=== PATIENT | male | born 1965 | race Caucasian/White ===

== ENCOUNTER 2018-09-24 22:32 | Emergency (ER) | payer MEDICAID, SELFPAY ==
[2018-09-24 22:36] VITALS: BP 139/83; PULSE 84; RESP 18; TEMP 36.4; O2SAT 97
--- NOTE | 2018-09-24 22:55 | W.ED.GENAD ---
Discharge Plan Disposition Patient Disposition: HOME Condition: Good Discharge Details Chief Complaint: Chest/Rib Clinical Impression: Chest wall muscle strain Primary Care Provider: Janine Hilliard V ED Provider: Azael Rudd [place] Meds and New Rx's Prescriptions: Continue atorvastatin 40 MG tablet 40 mg PO DAILY RF: 0 potassium citrate 10 MEQ tablet extended release 10 meq PO DAILY RF: 0 tamsulosin [Flomax] 0.4 MG capsule 0.4 mg PO DAILY Qty: 90 RF: 4 lisinopril 10 MG tablet 10 mg PO DAILY RF: 0 hydrochlorothiazide 25 MG tablet 25 mg PO DAILY RF: 0 budesonide-formoterol [Symbicort] 10.2 GM HFA aerosol inhaler 1 puff Inhalation BID RF: 0 cyclobenzaprine 10 MG tablet 10 mg PO DAILY RF: 0 Discharge Instructions Instructions: Muscle Strain (ED) Additional Instructions: Your CT scan does not show any evidence of bleeding or collapsed lung or rib fracture. Pain is likely related to chest wall strain from coughing/sneezing. You should use ice over the next 48 hours to help with pain. You may take the oxycodone you are given here at home anytime after 6 AM. After that begin using Tylenol 1 g every 8 hours as well as ibuprofen 600 mg every 8 hours. Alternate these every 4 hours to help with pain. Follow-up with primary care next week if not doing better. Return to ED for worsening pain, difficulty breathing, fever, other concerns Referrals: Janine Hilliard MD [Primary Care Provider] - Discharge Data Discharge Date/Time-TO BE ENTERED AT DEPARTURE: 09/25/18 00:56 Medical Decision Making Patient here with left lower lateral rib pain after sneezing. Prior history of easily bleeding and bruising in the past with hemothorax after similar event. Lungs are clear and vital signs are good although he appears very uncomfortable. I see no bruising currently. He is fairly tender in the left lower lateral ribs. IV is established and basic labs obtained. Morphine given for pain. CT scan of the chest/abdomen/pelvis obtained. Laboratory studies are unremarkable. CT scan negative for pneumothorax, hemothorax, rib fractures, intra-abdominal traumatic injury. Patient likely has chest wall strain. Have agreed to give him a dose of oxycodone here and one dose to use at home in the morning. Subsequently will use Motrin and Tylenol as well as ice and take it easy over the weekend. Follow-up with primary care next week if needed. Return to ED for fever, increasing pain, shortness of breath, other concerns. Lab Data Lab results reviewed: Yes I reviewed the patient's lab results. HPI General Mode of arrival: ambulatory. Date/Time Provider Initiated Documentation: 09/24/18 22:45. Limitations to Documentation: no limitations. Information obtained by: patient and family. HPI Narrative: Patient presents to ED with complaint of left sided lateral lower rib pain after sneezing. Patient has had a little bit of a cold for the last few days. A couple of days ago, he started having some cough. He had a little bit of left-sided discomfort then. Tonight he sneezed and had immediate pain in the left lower lateral ribs. It is difficult for him to take a deep breath because of pain. It is difficult for him to move. He and his report a similar event a few years ago which he subsequently developed a hemothorax from. He apparently has tendency to bleed/bruise but does not carry a diagnosis of any type of bleeding disorder despite multiple studies. He is very uncomfortable and presents now for evaluation concerned that may be he fractured a rib or caused damage like previous when he sneezed. Related Data Home Medications Medication Instructions Recorded Confirmed budesonide-formoterol [Symbicort] 1 puff INHALATION BID 03/14/13 01/24/16 hydrochlorothiazide 25 mg PO DAILY 03/14/13 09/24/18 lisinopril 10 mg PO DAILY 03/14/13 09/24/18 cyclobenzaprine 10 mg PO DAILY 08/22/14 09/24/18 atorvastatin 40 mg PO DAILY tab-cap 10/19/17 09/24/18 potassium citrate 10 meq PO DAILY 10/19/17 09/24/18 tamsulosin [Flomax] 0.4 mg PO DAILY #90 tab-cap 12/25/17 09/24/18 Previous Rx's Medication Instructions Recorded tamsulosin [Flomax] 0.4 mg PO DAILY #90 tab-cap 12/25/17 Allergies Allergy/AdvReac Type Severity Reaction Status Date / Time hydromorphone Allergy Unknown itching Unverified 09/24/18 22:40 hydrocodone [Hydrocodone] Allergy ITCHY Unverified 09/24/18 22:40 General Stated Complaint: Chest/Rib TRACIE: 3 Review of Systems Constitutional Denies chills, Denies fever(s), Denies headache(s) and Denies weakness Eyes Denies change in vision and Denies eye pain ENT Denies otalgia, Denies headache(s), Denies neck pain, Denies sinus pain and Denies sore throat Cardiovascular Reports chest pain, Denies edema and Denies dyspnea Respiratory Reports cough, Reports pain on inspiration, Reports pain with cough and Denies dyspnea Gastrointestinal Denies abdominal pain, Denies diarrhea, Denies nausea and Denies vomiting Genitourinary Denies hematuria and Denies flank pain Musculoskeletal Denies back pain, Denies neck pain and Denies numbness Integumentary/Breasts Denies rash Neurologic Denies headache(s), Denies numbness and Denies weakness Hematologic/Lymphatic Reports easy bleeding and Reports easy bruising [facility] Medical History Asthma DJD (degenerative joint disease) Hemothorax on right Hypertension Obesity Rib fracture Social History Smoking/Tobacco Use Status: Never Surgical History Repair of inguinal hernia Exam Const General: cooperative and acute distress (pain) moderate Orientation: alert and oriented x3 [facility] Head: normocephalic and atraumatic Neck Neck: normal visual inspection, trachea midline and supple Chest Chest: tenderness rib (left lower lateral ribs) Resp Effort & Inspection: normal respiratory effort Auscultation: clear to auscultation bilaterally Cardio Rate: regular rate Rhythm: regular rhythm Heart Sounds: S1 normal and S2 normal GI Inspection: obesity Palpation: soft, not firm, no guarding and nontender Back/Spine/Pelvis Back: no CVA tenderness Skin General skin exam: no ecchymosis Neuro General: alert, oriented x3, no focal motor deficits and CN's II-XI intact bilaterally Extrem General: normal to inspection and full ROM Course Vital Signs Temperature 97.5 F L 09/24/18 22:36 Pulse 84 09/24/18 22:36 Respiratory Rate 18 09/24/18 22:36 Blood Pressure 139/83 09/24/18 22:36 Pulse Oximetry 97 09/24/18 22:36 Temperature 97.5 F L 09/24/18 22:36 Temperature Source Skin 09/24/18 22:36 Pulse 84 09/24/18 22:36 Respiratory Rate 18 09/24/18 22:36 Respiratory Effort Non-Labored 09/24/18 22:42 Respiratory Depth Normal 09/24/18 22:42 Respiratory Pattern Normal 09/24/18 22:42 Blood Pressure 139/83 09/24/18 22:36 Blood Pressure Position Sitting 09/24/18 22:36 Pulse Oximetry 97 09/24/18 22:36 Oxygen Delivery Method Room Air 09/24/18 22:36 Oxygen Flow Rate 0 09/24/18 22:36 Pain Level 7 09/24/18 22:42
--- NOTE | 2018-09-24 22:56 | DI.CT_ITS ---
SYMPTOM/DIAGNOSIS: LT SIDED CHEST/ABD PAIN AFTER SNEEE CHEST, ABDOMEN AND PELVIC CT: Comparison is made with 04/03/15. CT scan of the chest, abdomen and pelvis was performed following the uneventful administration of intravenous contrast material. ABDOMEN AND PELVIS: There is diffuse decreased attenuation of the liver suggesting hepatic steatosis. No evidence of a hepatic mass is seen. The portal and superior mesenteric veins are patent. The gallbladder is negative. No biliary ductal dilatation is seen. The pancreas, spleen and adrenal glands are unremarkable. The kidneys show normal and symmetric enhancement. No evidence of a solid renal mass or obstruction. The urinary bladder is intact. The reproductive organs are unremarkable. There is diverticulosis of the colon but no evidence of acute diverticulitis. No evidence of bowel obstruction, inflammation or infection. No findings to suggest an acute appendicitis are present. There are two small fat containing supra-umbilical hernias. The bones are intact. IMPRESSION: No evidence of an acute abdomen. Small fat containing supra-umbilical hernias. Colonic diverticulosis but no evidence of acute diverticulitis. CHEST: The thoracic aorta is of normal caliber with mild atherosclerosis. No aneurysmal dilatation is seen. Heart size is within normal limits. No significant pericardial effusion is present. Coronary artery calcifications are seen. No significant mediastinal, hilar or axillary adenopathy is present. No pleural effusion or pneumothorax is identified. The lungs show no focal infiltrates. The tracheobronchial tree is unremarkable. The bones are intact. No acute fracture is identified. IMPRESSION: No acute abnormality.
[2018-09-24 23:15] LABS: Abs Immature Grans 0.02 k/cumm (0.0-0.09); Absolute Basophil Count 0.05 k/cumm (0.0-0.2); Absolute Eosinophil Count 0.17 k/cumm (0.0-0.7); Absolute Lymphocyte Count 2.02 k/cumm (1.2-3.4); Absolute Monocyte Count 1.01 k/cumm (0.11-0.7); Absolute Neutrophil Count 5.85 k/cumm (1.2-6.7); Basophils % 0.5; Eosinophils % 1.9; HCT 42.5 % (40.0-50.0); HGB 14.7 g/dL (13.5-17.5); Immature Grans % 0.2; Lymphocytes % 22.1; Mean Corp. HGB Concentration 34.6 g/dL (32.0-36.0); Mean Corpuscular Hemoglobin 28.8 pg (27.0-33.0); Mean Corpuscular Volume 83.3 fL (80-95); Monocytes % 11.1; Neutrophils % 64.2; Platelet Count 198 x1000/uL (130-400); RBC Distribution Width 14.8 % (11.8-14.1); White Blood Cell Count 9.12 k/cumm (4.4-10.8)
[2018-09-24 23:22] LABS: Anion Gap 9.2 mmol/L (3-11); BUN 31 mg/dL (7-18); CO2 28.8 mmol/L (21.0-32.0); CREATININE 0.87 mg/dL (0.70-1.30); Calcium 9.2 mg/dL (8.5-10.1); Chloride 101 mmol/L (98-107); Glucose 116 mg/dL (70-100); Potassium 3.9 mmol/L (3.5-5.1); Sodium 139 mmol/L (136-145)
[2018-09-24] MEDS: Lactated Ringers 1,000 ML 150 ML IV (23:40)
[2018-09-25] MEDS: Omnipaque 350 MG/ML 100 ML BTL IJ (00:01)
--- NOTE | 2018-09-25 00:20 | DI.VRAD_ITS ---
EXAM: CT Chest With Intravenous Contrast EXAM DATE/TIME: 09/24/2018 11:01 PM CLINICAL HISTORY: 53 years old, male; Pain; Other: L sided chest pain after sneezing; Other: HX hemothorax after similar incident TECHNIQUE: Axial computed tomography images of the chest with intravenous contrast. Coronal and sagittal reformatted images were created and reviewed. COMPARISON: No relevant prior studies available. FINDINGS: Lungs: Normal. No consolidation. No masses. Pleural space: Normal. No pneumothorax. No pleural effusion. Heart: Normal. No cardiomegaly. No pericardial effusion. Aorta: Normal. No aortic aneurysm. Lymph nodes: Unremarkable. No enlarged lymph nodes. Bones/joints: Unremarkable. No acute fracture. Soft tissues: Unremarkable. IMPRESSION: No acute findings. EXAM: CT Abdomen and Pelvis With Intravenous Contrast EXAM DATE/TIME: 09/24/2018 11:01 PM CLINICAL HISTORY: 53 years old, male; Pain; Other: L sided chest pain after sneezing; Other: HX hemothorax after similar incident TECHNIQUE: Axial computed tomography images of the abdomen and pelvis with intravenous contrast. Coronal and sagittal reformatted images were created and reviewed. COMPARISON: No relevant prior studies available. FINDINGS: Lower thorax: No acute findings. ABDOMEN: Liver: Normal. No mass. Gallbladder and bile ducts: Normal. No calcified stones. No ductal dilation. Pancreas: Normal. No ductal dilation. Spleen: Normal. No splenomegaly. Adrenals: Normal. No mass. Kidneys and ureters: Normal. No hydronephrosis. Stomach and bowel: Colonic diverticulosis. Appendix: No evidence of appendicitis. PELVIS: Bladder: Unremarkable as visualized. Reproductive: Unremarkable as visualized. ABDOMEN and PELVIS: Intraperitoneal space: Normal. No free air. No significant fluid collection. Bones/joints: No acute fracture. No dislocation. Soft tissues: Small fat-containing hernia just above the umbilicus. Vasculature: Normal. No abdominal aortic aneurysm. Lymph nodes: Normal. No enlarged lymph nodes. IMPRESSION: 1. Small fat-containing ventral hernia. 2. Colonic diverticulosis. Dictated and Authenticated by: Carlos Gonzalez MD. Ordering:DIANE PRIDE MD
[2018-09-25] MEDS: oxyCODONE 5 MG TAB PO ×2 (00:40→00:41)
[2018-09-25 00:52] VITALS: BP 134/80; PULSE 80; RESP 18; TEMP 36.4; O2SAT 97
== END 2018-09-25 00:56 | disposition home or self-care (01) ==
PROVIDERS: Emergency Provider Emergency Medicine; PCP Family Medicine
DX: S29.011A Strain of muscle and tendon of front wall of thorax, initial encounter (principal); X50.0XXA Overexertion from strenuous movement or load, initial encounter
CPT/HCPCS: 36415; 74177; 80048; 96361; 96374; 99285; 71260; 85025; 99284; J3490

== ENCOUNTER 2019-01-10 18:11 | Outpatient (REF) | payer MEDICAID, SELFPAY ==
[2019-01-12 09:35] LABS: PSA, Screening 0.7 ng/ml (0-3.5)
== END 2019-01-10 18:31 ==
LOC: LBN 18:11
PROVIDERS: PCP Family Medicine; Visit Provider Urology
DX: G89.4 Chronic pain syndrome (principal); N41.1 Chronic prostatitis; Z12.5 Encounter for screening for malignant neoplasm of prostate
CPT/HCPCS: 84153

== ENCOUNTER 2019-01-24 08:17 | Day surgery (SDC) | payer MEDICAID, SELFPAY ==
--- NOTE | 2019-01-23 19:41 | W.PIPPEYE ---
History of Present Illness Chief Complaint: Progressive decreased vision, left eye Narrative: Patient is a 51-year-old male with history of amblyopia of the right eye as well as high myopia with astigmatism. He presented with complaints of progressive decreased vision in his good left eye at both distance and near. On examination he was noted to have bilateral nuclear and cortical cataracts with best corrected vision of 20/70 OD, 20/50 OS. The option of cataract surgery was offered to the patient and he wished to proceed. In addition, he desired implantation of a toric intraocular lens implant to minimize his postoperative astigmatism correction. NOTE: The Chief Complaint, HPI, Past Medical History, Past Surgical History, Family History, Social History, Medications, and complete Ophthalmic Exam with detailed Assessment and Plan have already been documented in the patient's outpatient ophthalmic record and are not covered again in detail here. [facility] Social History Smoking and Tabacco status: Never Meds Home Medications Medication Instructions Recorded Confirmed Type Symbicort 1 puff INHALATION BID PRN 03/14/13 01/18/19 History hydrochlorothiazide 25 mg PO DAILY 03/14/13 01/18/19 History lisinopril 10 mg PO DAILY 03/14/13 01/18/19 History cyclobenzaprine 10 mg PO DAILY PRN 08/22/14 01/18/19 History atorvastatin 40 mg PO DAILY tab-cap 10/19/17 01/18/19 History potassium citrate 10 meq PO DAILY 10/19/17 01/18/19 History tamsulosin 0.4 mg capsule 0.4 mg PO DAILY #90 tab-cap 01/04/19 01/18/19 Rx Allergies Allergy/AdvReac Type Severity Reaction Status Date / Time hydromorphone Allergy Unknown itching Unverified 01/04/19 15:28 hydrocodone [Hydrocodone] Allergy ITCHY Unverified 01/04/19 15:28 Exam OCULAR EXAM:: Most recent ocular examination revealed best corrected vision of 20/70 OD, 20/50 OS. Intraocular pressure is 17 OD, 17 OS. Extraocular motility shows limited abduction in the right eye. Pupils equal, round, and reactive without afferent pupillary defect slit-lamp examination is significant for pupils dilating to 6.5 mm OU. 1+ nuclear with 2+ cortical cataract OU. Funduscopic examination is significant for disc cupping of 0.7 OU with peripapillary atrophy and the appearance of angioid streaks. An epiretinal membrane is present in both maculas. Peripheral retina and vitreous is normal OU. BRIGHTNESS ACUITY TESTING (BAT):: Brightness acuity testing of the left eye off is 20/50. Low is 20/40. Medium is 20/40. High is 20/50. Assessment and Plan (1) Nuclear sclerotic cataract of left eye: Current visit: No Status: Acute Assessment: Visually significant cataract, left eye. Plan: Cataract extraction with intraocular lens implantation, left eye (2) Cortical cataract of left eye: Current visit: No Status: Acute Assessment: Visually significant cataract, left eye. Plan: Cataract extraction with intraocular lens implantation, left eye Note: NOTE:: The details of the planned surgery, including the risks, indications,limitations,expectations,outcome and possible complications were explained to the patient. The patient understands the complications including, but not limited to: infection, hemorrhage, posterior dislocation of the lens or nuclear fragments which may require the intervention of a vitreoretinal surgeon, possible loss of the eye, or from anesthetic complications. The patient has been made aware of the option of not having surgery, that vision following surgery may not be equal to that prior to surgery, and that the planned surgery may not achieve the intended results. Following this discussion, which the patient appeared to understand, the patient wishes to proceed with cataract surgery with lens implantation of the affected eye to improve and maximize vision.
[2019-01-24 08:37] VITALS: BP 144/81; PULSE 78; RESP 18; TEMP 36.9; O2SAT 96
[2019-01-24] MEDS: Tetracaine 0.5% 4 ML BTL OS ×4 (08:45→09:48)
[2019-01-24] MEDS: Tropicam./Phenyleph. (1/2.5%) 5 ML BTL OS ×3 (08:45→08:55)
[2019-01-24] MEDS: Povidone-Iodine Ophth 30 ML BTL ×2 (09:48→10:25)
[2019-01-24] MEDS: Lidocaine 2% Jelly 6 ML SYR (09:48)
[2019-01-24] MEDS: Lidocaine 1% Pres-Free 5 ML VIAL (09:53)
[2019-01-24] MEDS: Balanced Salt Soln.-PLUS 500 ML BAG (09:53)
--- NOTE | 2019-01-24 10:32 | W.PM.DSUDISC ---
Discharge Plan Disposition Patient Disposition: HOME Condition: Stable Discharge Details Attending Provider: Timi Billingsley Primary Care Provider: Jainne Hilliard V Home Meds and New Rx's Prescriptions: No Action tamsulosin [Flomax] 0.4 mg capsule 0.4 mg PO DAILY Qty: 90 RF: 4 atorvastatin 40 MG tablet 40 mg PO DAILY RF: 0 potassium citrate 10 MEQ tablet extended release 10 meq PO DAILY RF: 0 lisinopril 10 MG tablet 10 mg PO DAILY RF: 0 hydrochlorothiazide 25 MG tablet 25 mg PO DAILY RF: 0 Symbicort 10.2 GM HFA aerosol inhaler 1 puff Inhalation BID PRNRF: 0 cyclobenzaprine 10 MG tablet 10 mg PO DAILY PRNRF: 0 Discharge Instructions Stand Alone Forms: Post-op Topical Cataract, Boris Marino (DSU) Discharge Orders Discharge Orders: Discharge Order (Routine); Ordered 01/24/19 Ordered By: Timi Billingsley DS: Diagnosis Discharge Diagnosis (1) Status post cataract extraction and insertion of intraocular lens of left eye: Status: Chronic
--- NOTE | 2019-01-24 10:33 | W.PM.OP ---
Date of service: 01/24/19 Time of Service: 10:33 Operative Note PRE-OP DIAGNOSIS: Cataract, left eye, with corneal astigmatism POST-OP DIAGNOSIS: same SURGEON: Timi Billingsley ANESTHESIA: MAC (with local sub-tenon's anesthetic injection) PATHOLOGY: none sent COMPLICATIONS: None Patient was transported to: same day Patient's condition: stable Implants: [employer] / MINNIE Tecnis ZCT Toric Intraocular Lens Indications: Progressive decreased vision due to cataract, left eye, with corneal astigmatism Procedure Description: CATARACT SURGERY OPERATIVE REPORT PREOPERATIVE DIAGNOSIS: Nuclear/cortical cataract, left eye High myopia with astigmatism POSTOPERATIVE DIAGNOSIS: Same OPERATION: Cataract extraction using phacoemulsification with posterior chamber toric intraocular lens implant, left eye. IOL: IOL Trace Evidence Technician/Model: [employer] Vision / MINNIE Tecnis ZCT 300 IOL Power: + 9.0 diopters sphere, 3.00 cylinder IOL Serial Number: [id number] Optic Diameter: 6.0mm Haptic/Overall Diameter: 13.00mm PHACO INFO: DamiánHyprKeyuriemoquo Vision System with OZil and Active Fluidics Cumulative Dispersed Energy (CDE): 9.34 seconds SURGEON: Timi Billingsley MD, GERALDINE ANESTHESIA: Monitored Anesthesia Care (MAC), with local sub-tenon's anesthetic infiltration COMPLICATIONS: None SPECIMENS: None INDICATIONS FOR PROCEDURE: The patient is a 53-year-old gentleman with history of high myopia with amblyopia of the right eye. He has developed a significant nuclear and cortical cataract of the left eye. He also has moderate amount of astigmatism and desires a toric intraocular lens implant at the time of cataract surgery. PROCEDURE: The correct surgical eye was identified and marked as the left eye and the pupil was dilated in the preoperative area using mydriatics and cycloplegics. The dilated pupil size was 8.0 mm. With the patient in the seated position, topical anesthetic was applied and a surgical marker was used to elvin the limbus at 6:00. A Surgilum Robomarker was then used to elvin the 0/180 degree reference axis. Oral sedation was administered in the form of an Imprimis MKO Melt (midazolam 3mg/ketamine 25mg/ondansetron 2mg). The patient was brought to the operating room where cardiopulmonary monitoring was instituted and surgical time-out was performed, confirming the correct operative eye and IOL power. Topical anesthesia was administered and ophthalmic povidone-iodine 5% was instilled into the conjunctival fornices. Lidocaine gel was applied to the cornea and the naa-ocular area was prepped with Betadine 10% solution and draped in the usual sterile fashion for intraocular surgery, including an aperture drape. A Tegaderm transparent film dressing was cut in half and used to cover the lashes and lid margins. Care was taken to sequester the lashes and lid margins under the Tegaderm dressing. A lid speculum was placed between the lids of the operative eye and the Dharmesh-Maddie operating microscope was maneuvered into position. Guillaume scissors were then used to make a conjunctival buttonhole approximately 6mm posterior to the limbus in the inferonasal quadrant. Blunt dissection was carried out to expose bare sclera, and a blunt-tipped sub-tenon?s anesthesia cannula was introduced and passed posteriorly along the globe where non-preserved plain lidocaine was injected into posterior sub-Tenon?s space. A corneal ring gauge and axis marker were then used to elvin the 0 degree position for the main phaco incision, and the 70/250 degree axis for alignment of the toric IOL. A sideport knife was used to make a paracentesis port superior/superiortemporally, and the anterior chamber was filled with Healon GV. Maria Elena scissors were used to make a conjunctival peritomy temporally and hemostasis was obtained using bipolar cautery forceps. A 2.4mm keratome knife was used to create a half-thickness scleral groove 1-1.5 mm posterior to the limbus, and then to create a scleral corneal tunnel extending 1.0 mm into clear cornea at the 0 degree axis. A flap was raised on the anterior capsule and capsulorhexis forceps were used to complete a continuous curvilinear capsulorhexis of 5.0 mm. The anterior chamber was moderately deep. Balanced salt solution was then used to perform cortical cleaving hydrodissection and nuclear hydrodelineation until the lens could be freely rotated within the capsular bag. The lens nucleus was then disassembled and removed within the capsular bag and iris plane using phacoemulsification. Residual cortical material was removed using the 45-degree angled silicone I/A tip with 0.3mm port. The posterior capsule was carefully polished to remove as much residual lens epithelial cells as safely possible. The capsular bag was then inflated and the anterior chamber deepened with viscoelastic. The lens implant described above was inserted into the capsular bag using the MINNIE [place] Injector. A Kuglen hook was used to dial the IOL into position, about 10 degrees counterclockwise of its final alignment. Residual viscoelastic was then removed first from posterior to the IOL, then from the anterior chamber using the I/A handpiece. The I/A handpiece was then used to dial the IOL to the target axis. The lens implant was noted to center nicely within the capsular bag, with the toric IOL martinez aligned at the 70/250 degree axis. The incisions were stromally hydrated, and the anterior chamber was reformed using BSS. Then 0.4cc of moxifloxacin 1.5mg/ml were injected into the capsular bag and anterior chamber. The incisions were checked with a Weck spear and found to be secure. Several drops of ophthalmic povidone-iodine 5% were then applied to the eye followed by two drops of Imprimis combination moxifloxacin/dexamethasone solution. The drapes were removed and a clear plastic protective eye shield was placed over the eye. The patient was then returned to Same Day Surgery in stable condition.
--- NOTE | 2019-01-24 10:37 | ROE_ITS ---
Date of service: 01/24/19 Time of Service: 10:33 Operative Note PRE-OP DIAGNOSIS: Cataract, left eye, with corneal astigmatism POST-OP DIAGNOSIS: same SURGEON: Timi Billingsley ANESTHESIA: MAC (with local sub-tenon's anesthetic injection) PATHOLOGY: none sent COMPLICATIONS: None Patient was transported to: same day Patient's condition: stable Implants: Jeremy [employer] Jeremy Vision / MINNIE Tecnis ZCT Toric Intraocular Lens Indications: Progressive decreased vision due to cataract, left eye, with corneal astigmatism Procedure Description: CATARACT SURGERY OPERATIVE REPORT PREOPERATIVE DIAGNOSIS: Nuclear/cortical cataract, left eye High myopia with astigmatism POSTOPERATIVE DIAGNOSIS: Same OPERATION: Cataract extraction using phacoemulsification with posterior chamber toric intraocular lens implant, left eye. IOL: IOL Director Of Staff Development/Model: J&J Vision / MINNIE Tecnis ZCT 300 IOL Power: + 9.0 diopters sphere, 3.00 cylinder IOL Serial Number: [id number] Optic Diameter: 6.0mm Haptic/Overall Diameter: 13.00mm PHACO INFO: DamiánTrunk[employer] Vision System with OZil and Active Fluidics Cumulative Dispersed Energy (CDE): 9.34 seconds SURGEON: Timi Billingsley MD, GERALDINE ANESTHESIA: Monitored Anesthesia Care (MAC), with local sub-tenon's anesthetic infiltration COMPLICATIONS: None SPECIMENS: None INDICATIONS FOR PROCEDURE: The patient is a 53-year-old gentleman with history of high myopia with amblyopia of the right eye. He has developed a significant nuclear and cortical cataract of the left eye. He also has moderate amount of astigmatism and desires a toric intraocular lens implant at the time of cataract surgery. PROCEDURE: The correct surgical eye was identified and marked as the left eye and the pupil was dilated in the preoperative area using mydriatics and cycloplegics. The dilated pupil size was 8.0 mm. With the patient in the seated position, topical anesthetic was applied and a surgical marker was used to elvin the limbus at 6:00. A Surgilum Robomarker was then used to elvin the 0/180 degree reference axis. Oral sedation was administered in the form of an Imprimis MKO Melt (midazolam 3mg/ketamine 25mg/ondansetron 2mg). The patient was brought to the operating room where cardiopulmonary monitoring was instituted and surgical time-out was performed, confirming the correct operative eye and IOL power. Topical anesthesia was administered and ophthalmic povidone-iodine 5% was instilled into the conjunctival fornices. Lidocaine gel was applied to the cornea and the naa-ocular area was prepped with Betadine 10% solution and draped in the usual sterile fashion for intraocular surgery, including an aperture drape. A Tegaderm transparent film dressing was cut in half and used to cover the lashes and lid margins. Care was taken to sequester the lashes and lid margins under the Tegaderm dressing. A lid speculum was placed between the lids of the operative eye and the Dharmesh-Maddie operating microscope was maneuvered into position. Guillaume scissors were then used to make a conjunctival buttonhole approximately 6mm posterior to the limbus in the inferonasal quadrant. Blunt dissection was carried out to expose bare sclera, and a blunt-tipped sub-tenon?s anesthesia cannula was introduced and passed posteriorly along the globe where non- preserved plain lidocaine was injected into posterior sub-Tenon?s space. A corneal ring gauge and axis marker were then used to elvin the 0 degree position for the main phaco incision, and the 70/250 degree axis for alignment of the toric IOL. A sideport knife was used to make a paracentesis port superior/superiortemporally, and the anterior chamber was filled with Healon GV. Maria Elena scissors were used to make a conjunctival peritomy temporally and hemostasis was obtained using bipolar cautery forceps. A 2.4mm keratome knife was used to create a half-thickness scleral groove 1-1.5 mm posterior to the limbus, and then to create a scleral corneal tunnel extending 1.0 mm into clear cornea at the 0 degree axis. A flap was raised on the anterior capsule and capsulorhexis forceps were used to complete a continuous curvilinear capsulorhexis of 5.0 mm. The anterior chamber was moderately deep. Balanced salt solution was then used to perform cortical cleaving hydrodissection and nuclear hydrodelineation until the lens could be freely rotated within the capsular bag. The lens nucleus was then disassembled and removed within the capsular bag and iris plane using phacoemulsification. Residual cortical material was removed using the 45-degree angled silicone I/A tip with 0.3mm port. The posterior capsule was carefully polished to remove as much residual lens epithelial cells as safely possible. The capsular bag was then inflated and the anterior chamber deepened with viscoelastic. The lens implant described above was inserted into the capsular bag using the MINNIE [place] Injector. A Kuglen hook was used to dial the IOL into position, about 10 degrees counterclockwise of its final alignment. Residual viscoelastic was then removed first from posterior to the IOL, then from the anterior chamber using the I/A handpiece. The I/A handpiece was then used to dial the IOL to the target axis. The lens implant was noted to center nicely within the capsular bag, with the toric IOL martinez aligned at the 70/250 degree axis. The incisions were stromally hydrated, and the anterior chamber was reformed using BSS. Then 0.4cc of moxifloxacin 1.5mg/ml were injected into the capsular bag and anterior chamber. The incisions were checked with a Weck spear and found to be secure. Several drops of ophthalmic povidone-iodine 5% were then applied to the eye followed by two drops of Imprimis combination moxifloxacin/dexamethasone solution. The drapes were removed and a clear plastic protective eye shield was placed over the eye. The patient was then returned to Same Day Surgery in stable condition.
[2019-01-24 10:50] VITALS: BP 127/80; PULSE 81; RESP 16; TEMP 36.1; O2SAT 95
== END 2019-01-24 11:00 | disposition home or self-care (01) ==
PROVIDERS: PCP Family Medicine; Visit Provider Ophthalmology
PROC: (CPT 66984; principal; 2019-01-24 11:15)
DX: H25.812 Combined forms of age-related cataract, left eye (principal); H52.202 Unspecified astigmatism, left eye; G47.33 Obstructive sleep apnea (adult) (pediatric); I10 Essential (primary) hypertension
CPT/HCPCS: 66984; V2632

== ENCOUNTER 2019-02-07 07:44 | Day surgery (SDC) | payer MEDICAID, SELFPAY ==
--- NOTE | 2019-02-06 16:37 | POEE_ITS ---
History of Present Illness Chief Complaint: Progressive decreased vision, right eye Narrative: The patient is a 53-year-old gentleman with history of high myopia with amblyopia of the right eye as well as epiretinal membrane with some foveal distortion in the right eye. He developed symptomatic bilateral nuclear and cortical cataracts, such that he desired cataract surgery and attempt to improve and maximize his vision. He has a moderate amount of astigmatism, and underwent cataract surgery with a toric intraocular lens implant in the left eye on 01/24/2019. Postoperatively he has regained uncorrected visual acuity of 20/25 in the left eye. He now presents for cataract surgery in the right eye. He under stands that postoperative visual acuity will be limited by the presence of his pre-existing amblyopia and maculopathy. NOTE: The Chief Complaint, HPI, Past Medical History, Past Surgical History, Fa edmond History, Social History, Medications, and complete Ophthalmic Exam with detailed Assessment and Plan have already been documented in the patient's outpatient ophthalmic record and are not covered again in detail here. PFSH Medical History Epiretinal membrane (ERM) of right eye (Chronic) Nuclear sclerotic cataract of right eye (Acute) Cortical cataract of right eye (Acute) Nuclear sclerotic cataract of left eye (Acute) Cortical cataract of left eye (Resolved) Asthma DJD (degenerative joint disease) Hemothorax on right Hypertension Obesity Rib fracture Surgical History Status post cataract extraction and insertion of intraocular lens of left eye (Chronic 01/24/19) Repair of inguinal hernia Social History Smoking/Tobacco Use Status: Never Drug use: Never Do you feel safe in your relationship?: Yes Meds Home Medications Medication Instructions Recorded Confirmed Type Symbicort 1 puff INHALATION BID PRN 03/14/13 01/24/19 History hydrochlorothiazide 25 mg PO DAILY 03/14/13 01/24/19 History lisinopril 10 mg PO DAILY 03/14/13 01/24/19 History cyclobenzaprine 10 mg PO DAILY PRN 08/22/14 01/24/19 History atorvastatin 40 mg PO DAILY tab-cap 10/19/17 01/24/19 History potassium citrate 10 meq PO DAILY 10/19/17 01/24/19 History tamsulosin 0.4 mg capsule 0.4 mg PO DAILY #90 tab-cap 01/04/19 01/24/19 Rx Allergies Allergy/AdvReac Type Severity Reaction Status Date / Time hydromorphone Allergy Unknown itching Unverified 01/24/19 08:34 hydrocodone [Hydrocodone] Allergy ITCHY Unverified 01/24/19 08:34 Exam OCULAR EXAM:: Most recent ocular examination reveals corrected visual acuity of 20/60 OD, 20/25 OS. Pupils equal, round, and reactive without afferent pupillary defect extraocular motility is significant for a right esotropia. Intraocular pressure is 17 OU. Slit-lamp examination reveals pupils dilating to 6.5 mm OU. 1+ nuclear with 2+ cortical cataract OD. Well-positioned PCIOL OS with clear posterior capsule. Dilated funduscopic examination shows disc cupping of 0.7 OU with naa-papillary atrophy. An epiretinal membrane is present in both maculas. Peripheral retina and vitreous is normal OU. BRIGHTNESS ACUITY TESTING (BAT):: Brightness acuity testing of the right eye off is 20/70. Low is 20/60. Medium is 20/60. High is 20/60. Assessment and Plan (1) Cortical cataract of right eye: Current visit: No Status: Acute Assessment: Visually significant cataract, right eye. Plan: Cataract extraction with intraocular lens implantation, right eye (2) Nuclear sclerotic cataract of right eye: Current visit: No Status: Acute Assessment: Visually significant cataract, right eye. Plan: Cataract extraction with intraocular lens implantation, right eye Note: NOTE:: The details of the planned surgery, including the risks, indications,limitations,expectations,outcome and possible complications were explained to the patient. The patient understands the complications including, but not limited to: infection, hemorrhage, posterior dislocation of the lens or nuclear fragments which may require the intervention of a vitreoretinal surgeon, possible loss of the eye, or from anesthetic complications. The patient has been made aware of the option of not having surgery, that vision following surgery may not be equal to that prior to surgery, and that the planned surgery may not achieve the intended results. Following this discussion, which the patient appeared to understand, the patient wishes to proceed with cataract surgery with lens implantation of the affected eye to improve and maximize vision.
--- NOTE | 2019-02-06 19:18 | W.PM.DSUDISC ---
Discharge Plan Disposition Patient Disposition: HOME Condition: Stable Discharge Details Attending Provider: Timi Billingsley Primary Care Provider: Janine Hilliard V Home Meds and New Rx's Prescriptions: No Action tamsulosin [Flomax] 0.4 mg capsule 0.4 mg PO DAILY Qty: 90 RF: 4 atorvastatin 40 MG tablet 40 mg PO DAILY RF: 0 potassium citrate 10 MEQ tablet extended release 10 meq PO DAILY RF: 0 lisinopril 10 MG tablet 10 mg PO DAILY RF: 0 hydrochlorothiazide 25 MG tablet 25 mg PO DAILY RF: 0 Symbicort 10.2 GM HFA aerosol inhaler 1 puff Inhalation BID PRNRF: 0 cyclobenzaprine 10 MG tablet 10 mg PO DAILY PRNRF: 0 Discharge Instructions Stand Alone Forms: Post-op Topical Cataract, Boris Marino (DSU) Discharge Orders Discharge Orders: Discharge Order (Routine); Ordered 02/07/19 Ordered By: Timi Billingsley DS: Diagnosis Discharge Diagnosis (1) Cortical cataract of right eye: Status: Resolved (2) Nuclear sclerotic cataract of right eye: Status: Resolved (3) Status post cataract extraction and insertion of intraocular lens of right eye: Status: Chronic
[2019-02-07 07:54] VITALS: BP 149/90; PULSE 77; RESP 16; TEMP 35.9; O2SAT 96
[2019-02-07] MEDS: Tetracaine 0.5% 4 ML BTL OD ×4 (08:06→09:04)
[2019-02-07] MEDS: Tropicam./Phenyleph. (1/2.5%) 5 ML BTL OD ×3 (08:07→08:17)
[2019-02-07] MEDS: Povidone-Iodine Ophth 30 ML BTL (09:04)
[2019-02-07] MEDS: Lidocaine 2% Jelly 6 ML SYR (09:06)
[2019-02-07] MEDS: Lidocaine 1% Pres-Free 5 ML VIAL (09:12)
[2019-02-07] MEDS: Balanced Salt Soln.-PLUS 500 ML BAG (09:12)
--- NOTE | 2019-02-07 10:25 | W.PM.OP ---
Date of service: 02/07/19 Time of Service: 10:25 Operative Note PRE-OP DIAGNOSIS: Cataract, right eye, with corneal astigmatism POST-OP DIAGNOSIS: same PROCEDURE: Cataract extraction using phacoemulsification with toric intraocular lens implant, right eye SURGEON: Timi Billingsley ANESTHESIA: MAC (with local sub-tenon's anesthetic injection) PATHOLOGY: none sent COMPLICATIONS: None Patient was transported to: same day Patient's condition: stable Implants: Jeremy [employer] Jeremy Vision / MINNIE Tecnis ZCT Toric Intraocular Lens Indications: Progressive decreased vision due to cataract, right eye, with corneal astigmatism Procedure Description: [] CATARACT SURGERY OPERATIVE REPORT PREOPERATIVE DIAGNOSIS: Nuclear/cortical cataract, right eye High myopia with astigmatism Right esotropia with amblyopia POSTOPERATIVE DIAGNOSIS: Same OPERATION: Cataract extraction using phacoemulsification with posterior chamber toric intraocular lens implant, right eye. IOL: IOL Blind Eyeletter/Model: J&J Vision / MINNIE Tecnis [id number] IOL Power: + 8.0 diopters sphere, 3.0 cylinder IOL Serial Number: [id number] Optic Diameter: 6.0mm Haptic/Overall Diameter: 13.00mm PHACO INFO: Damián [employer] Vision System with OZil and Active Fluidics Cumulative Dispersed Energy (CDE): 4.78 seconds SURGEON: Timi Billingsley MD, GERALDINE ANESTHESIA: Monitored Anesthesia Care (MAC), with local sub-tenon's anesthetic infiltration COMPLICATIONS: None SPECIMENS: None INDICATIONS FOR PROCEDURE: The patient is a 53-year old male with history of high myopia and astigmatism with right esotropia and amblyopia. He has developed symptomatic bilateral cataracts. He has already undergone cataract surgery in the left eye with a toric intraocular lens implant. He is doing well postoperatively in his left eye. He now presents for cataract surgery in the right eye. PROCEDURE: The correct surgical eye was identified and marked as the right eye and the pupil was dilated in the preoperative area using mydriatics and cycloplegics. The dilated pupil size was 7.0 mm. With the patient in the seated position, topical anesthetic was applied and a surgical marker was used to elvin the limbus at 6:00. A Surgilum Robomarker was then used to elvin the 0/180 degree reference axis. Oral sedation was administered in the form of an Imprimis MKO Melt (midazolam 3mg/ketamine 25mg/ondansetron 2mg). The patient was brought to the operating room where cardiopulmonary monitoring was instituted and surgical time-out was performed, confirming the correct operative eye and IOL power. Topical anesthesia was administered and ophthalmic povidone-iodine 5% was instilled into the conjunctival fornices. Lidocaine gel was applied to the cornea and the naa-ocular area was prepped with Betadine 10% solution and draped in the usual sterile fashion for intraocular surgery, including an aperture drape. A Tegaderm transparent film dressing was cut in half and used to cover the lashes and lid margins. Care was taken to sequester the lashes and lid margins under the Tegaderm dressing. A lid speculum was placed between the lids of the operative eye and the Dharmesh-Maddie operating microscope was maneuvered into position. Guillaume scissors were then used to make a conjunctival buttonhole approximately 6mm posterior to the limbus in the inferonasal quadrant. Blunt dissection was carried out to expose bare sclera, and a blunt-tipped sub-tenon?s anesthesia cannula was introduced and passed posteriorly along the globe where non-preserved plain lidocaine was injected into posterior sub-Tenon?s space. The patient had a severe Alfredo's phenomenon, making visualization and manipulation extremely challenging. A corneal ring gauge and axis marker were then used to elvin the 140 degree position for the main phaco incision.and the 116/296 degree axis for alignment of the toric IOL. A sideport knife was used to make a paracentesis port at the 7:00 postion and the anterior chamber was filled with Healon GV. A 2.4mm keratome knife was used to create a half-thickness groove at the limbus and then to construct a three-plane near-clear corneal tunnel extending 2.0mm into clear cornea at the 104 degree axis. . A flap was raised on the anterior capsule and capsulorhexis forceps were used to complete a continuous curvilinear capsulorhexis of 4.8 mm. The capsule was noted to be quite thin with moderately loose zonules. Balanced salt solution was then used to perform cortical cleaving hydrodissection and nuclear hydrodelineation until the lens could be freely rotated within the capsular bag. The lens nucleus was then disassembled and removed within the capsular bag and iris plane using phacoemulsification. THe anterior chamber was unstable. The iris was noted to be quite floppy, with pupil constricting to 4 mm during phacoemulsification. Visualization was challenging due to the small pupil and Alfredo's phenomenon. Residual cortical material was removed using the 45-degree angled silicone I/A tip with 0.3mm port. The cortex was very adherent, and viscodissection was used intermittently to free residual cortex. There was some residual cortical material in the subincisional area which could not be safely removed. The posterior capsule was carefully polished to remove as much residual lens epithelial cells as safely possible. The capsular bag was then inflated and the anterior chamber deepened with viscoelastic. The lens implant described above was inserted into the capsular bag using the [employer] [place] Injector. A Kuglen hook was used to dial the IOL into position, about 10 degrees counterclockwise of its final alignment. Residual viscoelastic was then removed first from posterior to the IOL, then from the anterior chamber using the I/A handpiece. The I/A handpiece was then used to dial the IOL to the target axis. The lens implant was noted to center nicely within the capsular bag, with the toric IOL martinez aligned at the 116/296 degree axis. The incisions were stromally hydrated, and the anterior chamber was reformed using BSS. Then 0.4cc of moxifloxacin 1.5mg/ml were injected into the capsular bag and anterior chamber. The incisions were checked with a Weck spear and found to be secure. Several drops of ophthalmic povidone-iodine 5% were then applied to the eye followed by two drops of Imprimis combination moxifloxacin/dexamethasone solution. The drapes were removed and a clear plastic protective eye shield was placed over the eye. The patient was then returned to Same Day Surgery in stable condition.
[2019-02-07 10:48] VITALS: BP 134/79; PULSE 70; RESP 16; TEMP 36.2; O2SAT 95
== END 2019-02-07 10:45 | disposition home or self-care (01) ==
LOC: SUR 07:44
PROVIDERS: PCP Family Medicine; Visit Provider Ophthalmology
PROC: (CPT 66984; principal; 2019-02-07 10:00)
DX: H25.811 Combined forms of age-related cataract, right eye (principal); H52.202 Unspecified astigmatism, left eye; Z98.42 Cataract extraction status, left eye; Z96.1 Presence of intraocular lens; G47.33 Obstructive sleep apnea (adult) (pediatric); I10 Essential (primary) hypertension
CPT/HCPCS: 66984; V2632

== ENCOUNTER 2019-04-23 10:02 | Emergency (ER) | payer MEDICAID, SELFPAY ==
[2019-04-23] VITALS (44 sets, daily range): BP systolic 118–143; BP diastolic 60–85; PULSE 75–91; RESP 11–38; TEMP 36.8–36.9; O2SAT 92–97
--- NOTE | 2019-04-23 10:03 | DI.COMBO_ITS ---
SYMPTOM/DIAGNOSIS: CHEST PAIN PA AND LATERAL CHEST: The heart is not enlarged. The lungs appear clear. No pleural effusion is seen. CONCLUSION: No evidence of acute disease. PE CHEST CT: CT angiography was performed with multi slice acquisition and multi planar and 3D reconstruction. CT angiography of the chest was performed with a bolus infusion of 100 cc's of Omnipaque 350. Images obtained through the upper abdomen show unremarkable appearance of visualized portions of liver, spleen, pancreas and bile ducts. There is an apparent hiatal hernia. The lungs appear hypoinflated with question of scattered ground glass densities versus poor inflation. No pleural effusion is seen. No mediastinal or hilar adenopathy. Tracheobronchial tree appears intact. No evidence of pulmonary embolic disease. CONCLUSION: No evidence of pulmonary embolic disease. Question patchy ground glass radiodensities in the lungs versus hypoinflation. Appropriate clinical follow up recommended.
[2019-04-23 10:21] LABS: Abs Immature Grans 0.02 k/cumm (0.0-0.09); Absolute Basophil Count 0.03 k/cumm (0.0-0.2); Absolute Eosinophil Count 0.19 k/cumm (0.0-0.7); Absolute Lymphocyte Count 1.46 k/cumm (1.2-3.4); Absolute Monocyte Count 0.69 k/cumm (0.11-0.7); Absolute Neutrophil Count 5.17 k/cumm (1.2-6.7); Basophils % 0.4; Eosinophils % 2.5; HCT 44.9 % (40.0-50.0); HGB 15.4 g/dL (13.5-17.5); Immature Grans % 0.3; Lymphocytes % 19.3; Mean Corp. HGB Concentration 34.3 g/dL (32.0-36.0); Mean Corpuscular Hemoglobin 28.7 pg (27.0-33.0); Mean Corpuscular Volume 83.6 fL (80-95); Mean Platelet Volume 10.7 fL (8.0-11.0); Monocytes % 9.1; Neutrophils % 68.4; Platelet Count 184 x1000/uL (130-400); RBC 5.37 m/cumm (4.50-6.00); RBC Distribution Width 14.7 % (11.8-14.1); White Blood Cell Count 7.56 k/cumm (4.4-10.8)
[2019-04-23 10:34] LABS: ALT 77 U/L (12-78); AST 30 U/L (15-37); Albumin 4.4 g/dL (3.4-5.0); Alkaline Phosphatase 78 U/L (46-116); BUN 21 mg/dL (7-18); Bilirubin, Total 0.4 mg/dL (0.2-1.0); CREATININE 0.75 mg/dL (0.70-1.30); Calcium 9.4 mg/dL (8.5-10.1); Chloride 102 mmol/L (98-107); Glucose 121 mg/dL (70-100); Potassium 3.9 mmol/L (3.5-5.1); Sodium 140 mmol/L (136-145); Total Protein 8.2 g/dL (6.4-8.2)
[2019-04-23 10:43] LABS: NT-proBNP 7 pg/mL
[2019-04-23 10:51] LABS: D-Dimer 554 ng/mlFEU (<500)
[2019-04-23 10:53] LABS: Troponin I < 0.02 ng/mL (0.00-0.06)
[2019-04-23] MEDS: Aspirin 81 MG CHEW 324 MG CH (11:23)
[2019-04-23] MEDS: Omnipaque 350 MG/ML 100 ML BTL IJ (11:37)
[2019-04-23] MEDS: Normal Saline Flush 10 ML SYR IVP (11:37)
--- NOTE | 2019-04-23 11:38 | DI.VRAD_ITS ---
EXAM: XR Chest, 2 Views EXAM DATE/TIME: 04/23/2019 10:40 AM CLINICAL HISTORY: 54 years old, male; Signs and symptoms; Other: Chest pain TECHNIQUE: Imaging protocol: XR of the chest, 2 views. COMPARISON: CR RIGHT RIBS PA CXR-3 VIEWS 11/10/2015 5:37 PM FINDINGS: Lungs: Unremarkable. No consolidation. Pleural space: Unremarkable. No pleural effusion. No pneumothorax. Heart/Mediastinum: Unremarkable. No cardiomegaly. Bones/joints: Unremarkable. IMPRESSION: No acute findings. Dictated and Authenticated by: Marie Luna MD. Ordering:ERIC Schwab MD
--- NOTE | 2019-04-23 11:58 | DI.VRAD_ITS ---
EXAM: CT Angiography Chest With Contrast EXAM DATE/TIME: 04/23/2019 11:20 AM CLINICAL HISTORY: 54 years old, male; Signs and symptoms; Other: Chest pain TECHNIQUE: Imaging protocol: Axial computed tomographic angiography images of the chest with intravenous contrast using CT angiography protocol. Coronal and sagittal reformatted images were created and reviewed. 3D rendering: MIP reconstructed images were created and reviewed. Radiation optimization: All CT scans at this facility use at least one of these dose optimization techniques: automated exposure control; mA and/or kV adjustment per patient size (includes targeted exams where dose is matched to clinical indication); or iterative reconstruction. Contrast material: OMNIPAQUE 350; Contrast volume: 100 ml; Contrast route: IV; COMPARISON: CR XR CHEST 2V PA LATERAL 04/23/2019 10:38 AM FINDINGS: Pulmonary arteries: Negative for acute pulmonary embolism. Aorta: Normal. No aortic aneurysm. No aortic dissection. Lungs: Patchy groundglass densities bilaterally, nonspecific finding. Differential includes infectious process, chronic interstitial disease, and acute alveolar disease. Clinical correlation necessary. Pleural space: Normal. No pneumothorax. No pleural effusion. Heart: Normal. No cardiomegaly. No pericardial effusion. Lymph nodes: Unremarkable. No enlarged lymph nodes. Bones/joints: Unremarkable. No acute fracture. Soft tissues: Unremarkable. IMPRESSION: 1. Negative for acute pulmonary embolism. 2. Patchy groundglass densities bilaterally, nonspecific finding. Differential includes infectious process, chronic interstitial disease, and acute alveolar disease. Clinical correlation necessary. Dictated and Authenticated by: Marie Luna MD. Ordering:ERIC Schwab MD
[2019-04-23 13:33] LABS: Troponin I < 0.02 ng/mL (0.00-0.06)
--- NOTE | 2019-04-23 13:58 | ED.GENADUL_ITS ---
Discharge Plan Disposition Patient Disposition: HOME Condition: Improving Discharge Details Chief Complaint: Chest Pain Clinical Impression: Chest pain Primary Care Provider: Janine Hilliard V ED Provider: Zaheer Osullivan Home Meds and New Rx's Prescriptions: Continued tamsulosin [Flomax] 0.4 mg capsule 0.4 mg PO DAILY Qty: 90 RF: 4 atorvastatin 40 MG tablet 40 mg PO DAILY RF: 0 potassium citrate 10 MEQ tablet extended release 10 meq PO DAILY RF: 0 lisinopril 10 MG tablet 10 mg PO DAILY RF: 0 hydrochlorothiazide 25 MG tablet 25 mg PO DAILY RF: 0 Symbicort 10.2 GM HFA aerosol inhaler 1 puff Inhalation BID PRNRF: 0 cyclobenzaprine 10 MG tablet 10 mg PO DAILY PRNRF: 0 Discharge Instructions Instructions: Chest Pain (ED) Additional Instructions: Return to the emergency department immediately for any new or significant worsening of symptoms, return of significant persistent tachycardia, or any other concerns. Otherwise follow respiratory therapies recommendation on Holter monitor return and follow-up with your primary care provider next week for reassessment and any further testing as needed. Referrals: Janine Hilliard MD [Primary Care Provider] - 1 week (for reassessment) Discharge Data Discharge Date/Time-TO BE ENTERED AT DEPARTURE: 04/23/19 14:15 Medical Decision Making Patient presenting the emergency department for chief complaint of chest pain and some shortness of breath. Patient states that this started around 8 AM and he was pushing a bread cart on rollers when this occurred. Patient looked at his Fitbit and noticed heart rate in the 140s to 150s lasted approximately 15 minutes. He states that that is resolved but he is continued to have chest pressure and some mild shortness of breath. Patient denies any lightheadedness or syncope, leg or calf pain, nausea vomiting, or other irregular heartbeats. Patient denies any previous episodes similar to this. Plan to check labs and EKG. Review of labs show a nondiagnostic CBC, CMP shows mildly elevated BUN and glucose otherwise no other acute findings noted, d-dimer slightly elevated at 554, negative initial troponin. Did discuss with patient CTA imaging of the chest due to elevated d-dimer, chest pain, shortness of breath. Patient was in agreement with this. Initial chest x-ray showed no acute finding Radiologist interpreted of CTA stated no acute pulmonary embolism, patchy groundglass densities bilateral with nonspecific findings. I feel this may be more indicative of patient's chronic asthma which he states he has had for a long time. Doubt infectious nature given patient is afebrile, no leukocytosis, no complaint of cough. Second troponin was drawn and also shows less than 0.02. Patient reassessed and states that he is completely asymptomatic and feels 100% better. Given episode of tachycardia I do feel Holter monitor may be beneficial at being able to diagnosis event that patient seen on his wrist monitor that correlated with his symptoms. Patient was agreeable to this. Given that patient is asymptomatic with negative troponin second EKG was performed and shows a rate of 85, sinus rhythm, again no ischemic ST changes noted and no significant change from initial EKG. Patient's heart score shows low risk of cardiac event and mainly scores points for risk factors of hypertension, hyperlipidemia, and obesity along with his age. Patient was placed upon care management list to arrange follow-up appoint with his primary care provider preferably early this next week for discussion of any further testing such as echo or stress test as needed. Close return precautions were discussed. After discussion of diagnosis and plan of care patient has no further needs, questions, or concerns and states clear understanding to return to the emergency department for any worsening symptoms. ECG Data Attestation: I personally reviewed and interpreted this ECG (s) as follows: Interpretation: EKG reviewed with Dr. Ting Thompson and shows rate of 78, sinus rhythm, no ST ischemic changes noted, otherwise nondiagnostic EKG HPI General Mode of arrival: ambulatory . Date/Time Provider Initiated Documentation: 04/23/19 10:02 . Limitations to Documentation: no limitations . Information obtained by: patient and RN notes reviewed . History of Present Illness 54 year old M presents to the emergency department with the chief complaint of Chest pain, rapid heart, described as moderate, with intensity rated at 5. Quality is described as aching, and is localized to the chest. Patient started experiencing this hour(s) (2) No relieving factors improve symptom(s), No exacerbating factors reported . Patient did receive the following treatments prior to arrival, none Related Data Home Medications Medication Instructions Recorded Confirmed Symbicort 1 puff INHALATION BID PRN 03/14/13 04/23/19 hydrochlorothiazide 25 mg PO DAILY 03/14/13 04/23/19 lisinopril 10 mg PO DAILY 03/14/13 04/23/19 cyclobenzaprine 10 mg PO DAILY PRN 08/22/14 04/23/19 atorvastatin 40 mg PO DAILY tab-cap 10/19/17 04/23/19 potassium citrate 10 meq PO DAILY 10/19/17 04/23/19 tamsulosin 0.4 mg capsule 0.4 mg PO DAILY #90 tab-cap 01/04/19 04/23/19 Previous Rx's Medication Instructions Recorded tamsulosin 0.4 mg capsule 0.4 mg PO DAILY #90 tab-cap 01/04/19 Allergies Allergy/AdvReac Type Severity Reaction Status Date / Time hydromorphone Allergy Unknown itching Unverified 02/07/19 07:49 hydrocodone [Hydrocodone] Allergy ITCHY Unverified 02/07/19 07:49 General Stated Complaint: Chest Pain TRACIE: 2 Review of Systems Constitutional Denies chills, Denies fever(s), Denies headache(s) and Denies malaise ENT Denies headache(s) Cardiovascular Reports as per HPI, Reports chest pain, Denies chest pain with activity, Denies syncope, Denies irregular heart rhythm, Reports palpitations and Reports dyspnea Respiratory Denies cough, Denies hemoptysis and Reports dyspnea Gastrointestinal Denies abdominal pain, Denies nausea and Denies vomiting Neurologic Denies syncope and Denies headache(s) Psychiatric Denies anxiety Endocrine Reports palpitations [facility] Medical History Epiretinal membrane (ERM) of right eye (Chronic) Nuclear sclerotic cataract of left eye (Acute) Cortical cataract of left eye (Resolved) Cortical cataract of right eye (Resolved) Nuclear sclerotic cataract of right eye (Resolved) Asthma DJD (degenerative joint disease) Hemothorax on right Hypertension Obesity Rib fracture Surgical History Status post cataract extraction and insertion of intraocular lens of right eye (Chronic 02/07/19) Status post cataract extraction and insertion of intraocular lens of left eye (Chronic 01/24/19) Repair of inguinal hernia Social History Smoking/Tobacco Use Status: Never Drug use: Never Substance use type: does not use Do you feel safe at home: Yes Do you feel safe in your relationship?: Yes Exam Const General: cooperative, comfortable, no acute distress, not diaphoretic and not ill appearing Nutritional Appearance: average body habitus and obese Orientation: alert, awake and oriented x3 Limitations: mental status not altered Neck Neck: normal visual inspection, full ROM, trachea midline, supple and no anterior neck swelling Thyroid: thyroid normal Carotids: normal carotid upstroke and no bruits Chest Chest: normal inspection of the chest Resp Effort & Inspection: normal respiratory effort and able to speak in complete sentences Auscultation: clear to auscultation bilaterally Cardio Jugular venous pressure: no JVD Palpation: normal PMI Rate: regular rate Rhythm: regular rhythm Heart Sounds: S1 normal, S2 normal, no click, no gallops, no murmurs and no rubs Bruits: no abdominal aortic bruits and no carotid bruits Pulses: radial pulses present bilaterally 2+ GI Inspection: normal to inspection Palpation: soft, no aortic enlargement, no pulsatile masses and nontender Auscultation: normal bowel sounds Skin General skin exam: no rashes or lesions noted Neuro General: alert, awake, oriented x3, tone normal and moves all extremities Extrem General: no pedal edema Course Vital Signs Pulse Oximetry 95 04/23/19 09:56 Temperature 36.8 C 04/23/19 11:54 Temperature Source Temporal Artery Scan 04/23/19 11:54 Pulse 79 04/23/19 11:54 Pulse 85 04/23/19 11:42 Respiratory Rate 22 04/23/19 11:54 Respiratory Effort Non-Labored 04/23/19 10:10 Respiratory Depth Normal 04/23/19 10:10 Respiratory Pattern Normal 04/23/19 10:10 Blood Pressure 138/74 04/23/19 11:54 Blood Pressure Mean 91 04/23/19 11:42 Pulse Oximetry 95 04/23/19 11:54 Oxygen Delivery Method Room Air 04/23/19 11:54 Oxygen Flow Rate 0 04/23/19 11:54 Pain Level 0 04/23/19 11:54 Lab/Test Results Lab/Test Results: Laboratory Tests Range/Units 04/23/19 04/23/19 04/23/19 10:10 10:10 10:10 WBC (4.4-10.8) k/cumm 7.56 RBC (4.50-6.00) m/cumm 5.37 Hgb (13.5-17.5) g/dL 15.4 Hct (40.0-50.0) % 44.9 MCV (80-95) fL 83.6 MCH (27.0-33.0) pg 28.7 MCHC (32.0-36.0) g/dL 34.3 RDW (11.8-14.1) % 14.7 H Plt Count (130-400) x1000/uL 184 MPV (8.0-11.0) fL 10.7 Immature Gran % 0.3 Neutrophils % 68.4 Lymphocytes % 19.3 Monocytes % 9.1 Eosinophils % 2.5 Basophils % 0.4 Absolute Neutrophils (1.2-6.7) k/cumm 5.17 Absolute Lymphocytes (1.2-3.4) k/cumm 1.46 Absolute Monocytes (0.11-0.7) k/cumm 0.69 Absolute Eosinophils (0.0-0.7) k/cumm 0.19 Absolute Basophils (0.0-0.2) k/cumm 0.03 D-Dimer (<500) ng/mlFEU Sodium (136-145) mmol/L 140 Potassium (3.5-5.1) mmol/L 3.9 Chloride (98-107) mmol/L 102 Carbon Dioxide (21.0-32.0) mmol/L 27.0 Anion Gap (3-11) mmol/L 11.0 BUN (7-18) mg/dL 21 H Creatinine (0.70-1.30) mg/dL 0.75 Estimated GFR/1.73 m2 (mL/min/1.73m2) >= 60.00 Glucose (70-100) mg/dL 121 H Calcium (8.5-10.1) mg/dL 9.4 Magnesium (1.8-2.4) mg/dL 2.0 Total Bilirubin (0.2-1.0) mg/dL 0.4 AST (15-37) U/L 30 ALT (12-78) U/L 77 Alkaline Phosphatase (46-116) U/L 78 Troponin I (0.00-0.06) ng/mL < 0.02 NT-Pro-B Natriuret Pep ( - 299) pg/mL 7 Total Protein (6.4-8.2) g/dL 8.2 Albumin (3.4-5.0) g/dL 4.4 Range/Units 04/23/19 04/23/19 10:10 13:00 WBC (4.4-10.8) k/cumm RBC (4.50-6.00) m/cumm Hgb (13.5-17.5) g/dL Hct (40.0-50.0) % MCV (80-95) fL MCH (27.0-33.0) pg MCHC (32.0-36.0) g/dL RDW (11.8-14.1) % Plt Count (130-400) x1000/uL MPV (8.0-11.0) fL Immature Gran % Neutrophils % Lymphocytes % Monocytes % Eosinophils % Basophils % Absolute Neutrophils (1.2-6.7) k/cumm Absolute Lymphocytes (1.2-3.4) k/cumm Absolute Monocytes (0.11-0.7) k/cumm Absolute Eosinophils (0.0-0.7) k/cumm Absolute Basophils (0.0-0.2) k/cumm D-Dimer (<500) ng/mlFEU 554 H Sodium (136-145) mmol/L Potassium (3.5-5.1) mmol/L Chloride (98-107) mmol/L Carbon Dioxide (21.0-32.0) mmol/L Anion Gap (3-11) mmol/L BUN (7-18) mg/dL Creatinine (0.70-1.30) mg/dL Estimated GFR/1.73 m2 (mL/min/1.73m2) Glucose (70-100) mg/dL Calcium (8.5-10.1) mg/dL Magnesium (1.8-2.4) mg/dL Total Bilirubin (0.2-1.0) mg/dL AST (15-37) U/L ALT (12-78) U/L Alkaline Phosphatase (46-116) U/L Troponin I (0.00-0.06) ng/mL < 0.02 NT-Pro-B Natriuret Pep ( - 299) pg/mL Total Protein (6.4-8.2) g/dL Albumin (3.4-5.0) g/dL
--- NOTE | 2019-04-26 08:50 | PDOC.ERCMPRO ---
Care Management Progress Note 04/26-Romie GUEST SERVICES DIRECTOR requested assistance with a PCP (Arm[facility]) f/u this week for chest pain, tachycardia. Holter monitor placed in ED. Referral faxed to [facility] this am.
== END 2019-04-23 14:15 | disposition home or self-care (01) ==
PROVIDERS: Emergency Provider Nurse Practitioner Family; PCP Family Medicine
DX: R07.9 Chest pain, unspecified (principal); I10 Essential (primary) hypertension
CPT/HCPCS: 36415; 71275; 80053; 93005; 99285; 71046; 83735; 83880; 84484; 85025; 85379; 93010; 93225; J3490

== ENCOUNTER 2019-04-26 11:07 | Outpatient (CLI) | payer MEDICAID, SELFPAY ==
--- NOTE | 2019-04-26 14:26 | HOLTER_ITS ---
DATE OF DICTATION: April 26, 2019 HOLTER MONITOR REPORT DATE OF SERVICE: April 26, 2019 STUDY INDICATION: Tachycardia. REQUESTING PROVIDER: Bessie Hamm FINDINGS: The patient was monitored for two days. Baseline normal sinus rhythm. Average heart rate 80 bpm, range 56 to 123 bpm. Rare ectopy, 21 PVC's, no VT, 16 PAC's, no SVT. No pauses greater than three seconds. No high-degree heart block. No patient events. FINAL INTERPRETATION: Normal study.
== END 2019-04-26 11:27 ==
PROVIDERS: PCP Family Medicine; Visit Provider Nurse Practitioner Family
DX: R00.0 Tachycardia, unspecified (principal); I49.3 Ventricular premature depolarization; I49.1 Atrial premature depolarization
CPT/HCPCS: 93226

== ENCOUNTER 2020-06-21 16:53 | Outpatient (REF) | payer MEDICAID, SELFPAY ==
[2020-06-21 19:59] LABS: Anion Gap 10.6 mmol/L (3-11); BUN 17 mg/dL (7-18); CO2 26.4 mmol/L (21.0-32.0); CREATININE 0.61 mg/dL (0.70-1.30); Chloride 102 mmol/L (98-107); Cholesterol 177 mg/dL (<200); Glucose 91 mg/dL (74-106); HDL Cholesterol 32 mg/dL (40-60); Sodium 139 mmol/L (136-145); Triglyceride 447 mg/dL (<150)
[2020-06-21 20:29] LABS: LDL CHOLESTEROL 92 mg/dL (<100)
[2020-06-21 21:08] LABS: Hemoglobin A1C 5.6 % (3.8-5.6)
== END 2020-06-21 17:13 ==
LOC: NCHCN 16:53
PROVIDERS: PCP Family Medicine; Visit Provider Nurse Practitioner Family
DX: R73.03 Prediabetes (principal); I10 Essential (primary) hypertension; E78.5 Hyperlipidemia, unspecified; J45.40 Moderate persistent asthma, uncomplicated
CPT/HCPCS: 80048; 80061; 83721; 83036

== ENCOUNTER 2021-08-22 15:52 | Outpatient (REF) | payer MEDICAID, SELFPAY ==
[2021-08-22 19:36] LABS: HCT 44.2 % (40.0-50.0); HGB 14.9 g/dL (13.5-17.5); MCH 28.3 pg (27.0-33.0); MCHC 33.7 % (32.0-36.0); MCV 83.9 fL (80-95); MPV 11.9 fL (8.0-11.0); Platelet Count 169 10^3/uL (130-400); RBC 5.27 10^6/uL (4.36-5.78); RDW 14.1 % (11.8-14.1); RDW-SD 43.1 fL; WBC 7.53 10^3/uL (4.4-10.8)
[2021-08-22 19:53] LABS: ESR 13 mm/hr (0-20)
[2021-08-22 20:09] LABS: ALT 54 U/L (16-63); AST 30 U/L (15-37); Albumin 4.3 g/dL (3.4-5.0); Alkaline Phosphatase 66 U/L (46-116); Anion Gap 10.7 mmol/L (3-11); BUN 16 mg/dL (7-18); Bilirubin, Total 0.4 mg/dL (0.2-1.0); CO2 27.3 mmol/L (21.0-32.0); CREATININE 0.7 mg/dL (0.70-1.30); Calcium 8.8 mg/dL (8.5-10.1); Chloride 102 mmol/L (98-107); Cholesterol 197 mg/dL (<200); Glucose 83 mg/dL (74-106); HDL Cholesterol 35 mg/dL (40-60); Sodium 140 mmol/L (136-145); TSH (W/Ref FT4) 0.68 uIU/mL (0.36-3.74); Total Protein 7.6 g/dL (6.4-8.2); Triglyceride 499 mg/dL (<150)
[2021-08-22 20:25] LABS: LDL CHOLESTEROL 83 mg/dL (<100)
[2021-08-22 20:32] LABS: C-Reactive Protein 0.08 mg/dL (0.0-0.3)
[2021-08-22 20:42] LABS: Hemoglobin A1C 5.7 % (<5.7)
[2021-08-23 17:01] LABS: Rheumatoid Factor <8.6 IU/mL (<12.0)
[2021-08-23 17:49] LABS: PSA, Screening 0.9 ng/mL (0.0-3.5)
[2021-08-25 18:18] LABS: Anaplasma phagocytophilum Negative (Negative); B. miyamotoi PCR Negative (Negative); Babesia divergens/MO-1 Negative (Negative); Babesia duncani Negative (Negative); Babesia microti Negative (Negative); Ehrlichia chaffeensis Negative (Negative); Ehrlichia ewingii/canis Negative (Negative); Ehrlichia muris eauclairensis Negative (Negative)
[2021-08-26 10:34] LABS: Hepatitis C Ab w Rflx HCV PCR Negative (Negative)
[2021-08-26 11:14] LABS: IgA 242 mg/dL (85-499); Interpretation (See Note); Tissue Transglutaminase IgA <1.2 U/mL (<4.0)
[2021-08-26 11:42] LABS: Lyme Ab w Rflx to Lyme Confirm Negative (Negative)
[2021-08-26 14:20] LABS: ANA Interpretation Positive (Negative); ANA Titer Pattern 1:80 Speckled
== END 2021-08-22 15:53 | disposition home or self-care (01) ==
LOC: NCHCN 15:52
PROVIDERS: PCP Family Medicine; Visit Provider Family Medicine
DX: E78.5 Hyperlipidemia, unspecified (principal); R73.03 Prediabetes; Z00.00 Encounter for general adult medical examination without abnormal findings; I10 Essential (primary) hypertension; E88.81 Metabolic syndrome and other insulin resistance; M06.9 Rheumatoid arthritis, unspecified; M25.59 Pain in other specified joint; Z12.5 Encounter for screening for malignant neoplasm of prostate
CPT/HCPCS: 80053; 80061; 82784; 83516; 83721; 84153; 85027; 85652; 86803; 87798; 83036; 84443; 86038; 86140; 86431; 86618

== ENCOUNTER 2021-09-04 03:11 | Outpatient (CLI) | payer MEDICAID, SELFPAY ==
--- NOTE | 2021-09-04 | DI.RAD_ITS ---
Exam(s) XR CERVICAL SPINE COMP 4-5V EXAM: XR CERVICAL SPINE COMP 4-5V CLINICAL HISTORY: CERVICALGIA,M54.2. TECHNIQUE: 2D digital imaging was performed. COMPARISON: CR CERV SP.WITH OBL OR FLEX/EXT from 09/26/2015 FINDINGS: No evidence of cervical spine fracture nor listhesis. Normal disc height at each level. Slight reve rsal of the normal curvature is noted which may be related to muscle spasm. On the oblique views the re are no prominent Luschka joint osteophytes evident. Mild facet degenerative changes noted at the C2-3 and C3-4 levels. No cervical ribs IMPRESSION: Some facet arthropathy is noted in the mid upper cervical spine. Preserved disc height at each level . DATA REPOSITORY: RADIATION DOSE DELIVERED:
--- NOTE | 2021-09-04 13:45 | DI.RAD_ITS ---
Exam(s) XR THORACIC SPINE COMPLETE EXAM: XR THORACIC SPINE COMPLETE CLINICAL HISTORY: back pain with radiculopathy,m54.16. TECHNIQUE: 2D digital imaging was performed. COMPARISON: No exams were available for comparison FINDINGS: No evidence of fracture. Multilevel calcification in the anterior longitudinal ligament, possibly el ement ofDISH. There is no scoliosis. IMPRESSION: DATA REPOSITORY: RADIATION DOSE DELIVERED:
== END 2021-09-04 03:31 ==
PROVIDERS: PCP Family Medicine; Visit Provider Family Medicine
DX: M54.2 Cervicalgia (principal); M54.16 Radiculopathy, lumbar region; R93.89 Abnormal findings on diagnostic imaging of other specified body structures; M47.12 Other spondylosis with myelopathy, cervical region
CPT/HCPCS: 72050; 72072

== ENCOUNTER 2021-09-04 04:16 | Outpatient (CLI) | payer MEDICAID, SELFPAY ==
[2021-09-05 14:25] LABS: RNP Ab, IgG 2.4 Units (<20.0)
[2021-09-05 14:27] LABS: Sm (Smith) Ab, IgG 1.7 Units (<20.0)
== END 2021-09-04 04:17 | disposition home or self-care (01) ==
LOC: LBO 04:17
PROVIDERS: PCP Family Medicine; Visit Provider Family Medicine
DX: I10 Essential (primary) hypertension (principal); E78.5 Hyperlipidemia, unspecified; E88.81 Metabolic syndrome and other insulin resistance; Z00.00 Encounter for general adult medical examination without abnormal findings; R53.83 Other fatigue; M25.59 Pain in other specified joint; R73.03 Prediabetes
CPT/HCPCS: 36415; 86235

== ENCOUNTER 2022-08-28 14:42 | Outpatient (REF) | payer MEDICAID, SELFPAY ==
[2022-08-28 19:15] LABS: ALT 53 U/L (16-63); AST 30 U/L (15-37); Albumin 4.1 g/dL (3.4-5.0); Alkaline Phosphatase 68 U/L (46-116); Anion Gap 8.9 mmol/L (3-11); BUN 20 mg/dL (7-18); Bilirubin, Total 0.4 mg/dL (0.2-1.0); CO2 29.1 mmol/L (21.0-32.0); CREATININE 0.7 mg/dL (0.70-1.30); Calcium 9.1 mg/dL (8.5-10.1); Chloride 101 mmol/L (98-107); Estimated GFR 106.14 (mL/min/1.73m2); Glucose 90 mg/dL (74-106); Potassium 3.9 mmol/L (3.5-5.1); Sodium 139 mmol/L (136-145); Total Protein 7.9 g/dL (6.4-8.2)
[2022-08-28 19:43] LABS: Hemoglobin A1C 5.8 % (<5.7)
[2022-09-01 10:56] LABS: PSA, Screening 0.7 ng/mL (<=3.5)
== END 2022-08-28 14:43 | disposition home or self-care (01) ==
LOC: NCHCN 14:42
PROVIDERS: PCP Family Medicine; Visit Provider Family Medicine
DX: I10 Essential (primary) hypertension (principal); E78.5 Hyperlipidemia, unspecified; N41.1 Chronic prostatitis; Z00.00 Encounter for general adult medical examination without abnormal findings; Z12.5 Encounter for screening for malignant neoplasm of prostate
CPT/HCPCS: 80053; 84153; 83036

== ENCOUNTER 2022-11-16 04:37 | Inpatient (IN) | payer MEDICAID, SELFPAY ==
[2022-11-16] VITALS (22 sets, daily range): BP systolic 120–136; BP diastolic 58–79; PULSE 59–127; RESP 2–35; TEMP 36.6–37.2; O2SAT 90–96
--- NOTE | 2022-11-16 04:30 | RT.EKG_ITS ---
APPROVED REPORT Exam: Resting ECG Reason for Exam: sob Patient Location: E HR:119 bpm ECG Measurements Heart Rate 119 AXIS DC 146 P 16 QRSd 90 QRS 31 QT 328 T 54 QTc 425 Conclusion Sinus tachycardia...rate> 99 Multiform ventricular premature complexes...short R-R, variable morphology Physician: artifact, appears to be sinus with PAC's vs PVC's. no stemi
--- NOTE | 2022-11-16 04:45 | DI.RAD_ITS ---
Exam(s) XR PORTABLE CHEST AP EXAM: XR PORTABLE CHEST AP CLINICAL HISTORY: cough, sob, r/o pneumonia. TECHNIQUE: 2D digital imaging was performed. COMPARISON: CR XR CHEST 2V PA LATERAL from 04/23/2019 FINDINGS: Single AP portable view. Heart size is upper normal. The mediastinum is not widened. There increased interstitial markings throughout both lung stone and there are patchy para and infra hilar infiltrates. No pleural effusions evident on this single single portable view. No osseous findings. IMPRESSION: Interstitial and patchy infiltrates. Probable infectious etiology but cannot exclude element of feroz estive heart failure. DATA REPOSITORY: RADIATION DOSE DELIVERED:
--- NOTE | 2022-11-16 04:54 | W.ED.GENAD ---
Discharge Plan Disposition Patient Disposition: Admit to [facility] Condition: Stable Discharge Details Chief Complaint: SOB Clinical Impression: Community acquired pneumonia, Transaminitis, Hypoxemia Primary Care Provider: Janine Hilliard V ED Provider: Jw Warner Home Meds and New Rx's Prescriptions: No Action tamsulosin [Flomax] 0.4 mg capsule 0.4 mg PO DAILY Qty: 90 4RF atorvastatin 40 MG tablet 40 mg PO DAILY potassium citrate 10 MEQ tablet extended release 10 meq PO DAILY hydrochlorothiazide 25 MG tablet 25 mg PO DAILY budesonide-formoterol [Symbicort] 10.2 GM HFA aerosol inhaler 1 puff Inhalation BID PRN lisinopril 10 mg tablet 20 mg PO DAILY cyclobenzaprine 10 MG tablet 10 mg PO DAILY PRN Medical Decision Making 57-year-old male with a past medical history of congestive heart failure per patient, von Willebrand's disease, high cholesterol, reactive airway disease, pretension, presents today for cough and shortness of breath with intermittent chest pain. Patient states that for the last 10 days he has had the symptoms and they have been gradually worsening. 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 Patient admits to worsening cough, productive sputum with some orange tent. He denies hemoptysis. Shortness of breath is made worse with activity and cough. He admits of the chest pain being intermittent and nonexertional. He did not have an opportunity to get his flu shot this year. He states that he has not been using his Symbicort inhaler. He denies any cardiac history or history of blood clots. No other complaints at this time. No other modifying factors. Additionally the patient states that he has been not been taking his medications for the last week or so secondary to his illness. Exam demonstrates a tachypneic male, oxygenation in the low 90s, mildly tachycardic, diffuse crackles and wheezes throughout his lung exam. Differential includes pneumonia, CHF, influenza and COVID. We will evaluate for these etiologies, give 2 breathing treatments, monitor closely and reassess. 7 AM Even after breathing treatments oxygenation is still in the low 90s to high 80s. Laboratory work-up demonstrates notably elevated white count at 21, notable left shift, lactate is elevated at 2.3, proBNP is normal, mild transaminitis is present, and electrolytes are stable. VBG is stable. Chest x-ray shows notable right-sided infiltrate. Ceftriaxone 2 g and azithromycin were started for treatment of community-acquired pneumonia. D-dimer was notably elevated at 2000, and with concern for PE the decision was made to get a CT scan. Patient denies any abdominal pain, but he does have mild abdominal distention. Will add a CT of the abdomen with his transaminitis to make sure there is no other atypical process. Initial attempt for CT scan resulted in failure as the patient would have a severe coughing fit whenever he was laid flat. The decision was made to trial nebulized lidocaine to see if we could stop the coughing to enable the CAT scan. Lidocaine was administered and this did resolve the coughing for a period long enough to obtain CT imaging. I did contact the hospitalist Dr. Carroll and informed her of the current scenario and how we are waiting on the CT scan. I will sign the patient out to Dr. Thompson, who will contact the hospitalist with the results of the CT imaging. I did add on a procalcitonin and a CPK for Dr. Carroll as well. These results are pending. HPI General Date/Time Provider Initiated Documentation: 11/16/22 04:43. HPI Narrative: 57-year-old male with a past medical history of congestive heart failure per patient, von Willebrand's disease, high cholesterol, reactive airway disease, pretension, presents today for cough and shortness of breath with intermittent chest pain. Patient states that for the last 10 days he has had the symptoms and they have been gradually worsening. 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 Patient admits to worsening cough, productive sputum with some orange tent. He denies hemoptysis. Shortness of breath is made worse with activity and cough. He admits of the chest pain being intermittent and nonexertional. He did not have an opportunity to get his flu shot this year. He states that he has not been using his Symbicort inhaler. He denies any cardiac history or history of blood clots. No other complaints at this time. No other modifying factors. Additionally the patient states that he has been not been taking his medications for the last week or so secondary to his illness. Related Data Home Medications Medication Instructions Recorded Confirmed budesonide-formoterol HFA 160 1 puff inhalation BID PRN 03/14/13 09/09/22 mcg-4.5 mcg/actuation aerosol inhaler (Symbicort) hydrochlorothiazide 25 mg tablet 25 mg PO DAILY 03/14/13 09/09/22 cyclobenzaprine 10 mg tablet 10 mg PO DAILY PRN 08/22/14 09/09/22 atorvastatin 40 mg tablet 40 mg PO DAILY 10/19/17 09/09/22 potassium citrate 10 mEq (1,080 10 meq PO DAILY 10/19/17 09/09/22 mg) tablet,extended release lisinopril 10 mg tablet 20 mg PO DAILY 09/09/22 09/09/22 tamsulosin 0.4 mg capsule (Flomax) 0.4 mg PO DAILY #90 tab-caps 09/09/22 09/09/22 Previous Rx's Medication Instructions Recorded tamsulosin 0.4 mg capsule (Flomax) 0.4 mg PO DAILY #90 tab-caps 09/09/22 Allergies Allergy/AdvReac Type Severity Reaction Status Date / Time hydromorphone Allergy Unknown itching Unverified 09/09/22 14:28 hydrocodone [Hydrocodone] Allergy ITCHY Unverified 09/09/22 14:28 General Stated Complaint: SOB TRACIE: 2 Review of Systems All systems reviewed & are unremarkable except as noted in HPI and below PFSH All Active Problems (Updated 11/16/22 @ 07:44 by Jw Warner DO) Community acquired pneumonia (Acute) Transaminitis (Acute) Hypoxemia (Acute) Status post cataract extraction and insertion of intraocular lens of right eye (Chronic 02/07/19) High myopia, right eye (Chronic) Epiretinal membrane (ERM) of right eye (Chronic) Status post cataract extraction and insertion of intraocular lens of left eye (Chronic 01/24/19) High myopia, left eye (Chronic) Amblyopia of right eye (Chronic) Epiretinal membrane (ERM) of left eye (Chronic) Nuclear sclerotic cataract of left eye (Acute) Chronic prostatitis/chronic pelvic pain syndrome (Acute 10/19/17) Hemothorax on right (Acute 09/11/14) Osteoarthritis (Chronic) Asthma (Chronic) Obstructive sleep apnea (Chronic) Medical History (Updated 11/16/22 @ 07:44 by Jw Warner DO) Asthma Cortical cataract of left eye Cortical cataract of right eye DJD (degenerative joint disease) Hemothorax on right Hypertension Nuclear sclerotic cataract of right eye Obesity Rib fracture Surgical History Repair of inguinal hernia Social History Smoking/Tobacco Use Status: Never Smoking risk assessment performed?: Yes Drug use: Never Substance use type: does not use Do you feel safe at home: Yes Do you feel safe in your relationship?: Yes Exam Narrative Exam Narrative: 1.Const: Well-nourished, Well-developed, appearing stated age 2.Eyes: PERRL, no conjunctival injection, and symmetrical lids. 3.ENT: Atraumatic external nose and ears. Moist MM. Neck: Symmetric, trachea midline, No thyromegaly. 4.CVS: +S1/S2, No murmurs or gallops. Peripheral pulses 2+ and equal in all extremities. Brisk capillary refill in all extremities. 5.RESP: Increased respiratory rate, diffuse wheezes, mild crackles in the right lower lung field. 6.GI: Soft, Nontender/Nondistended, No hepatosplenomegaly. No guarding or rebound. 7.MSK: Normocephalic/Atraumatic, Extremities w/o deformity or ttp No cyanosis or clubbing, Normal movement of all extremities, trace pitting edema of the lower extremities. No calf tenderness 8.Skin: Warm, Dry. No rashes or lesions. 9.Neuro: dial painter II-XII grossly intact. Sensation grossly intact, no focal neurologic deficits. 10.Psych: (AAO) x3. Appropriate mood and affect Course Vital Signs Vital signs: Vital Signs Temperature 37.1 C 11/16/22 04:38 Pulse 116 H 11/16/22 04:38 Respiratory Rate 24 11/16/22 04:38 Blood Pressure 135/65 11/16/22 04:38 Pulse Oximetry 92 11/16/22 04:38 Temperature 37.1 C 11/16/22 04:38 Temperature Source Tympanic 11/16/22 04:38 Pulse 116 H 11/16/22 04:38 Respiratory Rate 24 11/16/22 04:38 Respiratory Effort Labored 11/16/22 04:49 Respiratory Pattern Tachypnea 11/16/22 04:49 Blood Pressure 135/65 11/16/22 04:38 Blood Pressure Position Sitting 11/16/22 04:38 Pulse Oximetry 92 11/16/22 04:38 Oxygen Delivery Method Nasal Cannula 11/16/22 04:38 Oxygen Flow Rate 2 11/16/22 04:38 Pain Level 5 11/16/22 04:38
[2022-11-16 05:08] LABS: BE (Venous) 3 mmol/L (-2-3); HCO3 (Venous) 29 mmol/L (23-28); O2 Sat (Venous) 57 %; TCO2 (Venous) 26 mmol/L (24-29); pCO2 (Venous) 51 mmHg (41-51); pH (Venous) 7.35 (7.31-7.41); pO2 (Venous) 30 mmHg
[2022-11-16 05:11] LABS: Lactate 2.3 mmol/L (0.6-1.4)
[2022-11-16 05:14] LABS: Abs Immature Grans 0.18 10^3/uL (0.0-0.06); Absolute Eosinophil Count 0.11 10^3/uL (0.0-0.7); Absolute Monocyte Count 1.85 10^3/uL (0.1-0.8); Absolute Neutrophil Count 18.51 10^3/uL (1.2-6.7); Basophils % 0.7; Eosinophils % 0.5; HCT 41.3 % (40.0-50.0); Immature Grans % 0.8; Lymphocytes % 2.2; MCH 28.4 pg (27.0-33.0); MCHC 33.9 % (32.0-36.0); MCV 84 fL (80-95); MPV 11.3 fL (8.0-11.0); Monocytes % 8.7; Neutrophils % 87.1; Platelet Count 264 10^3/uL (130-400); RBC 4.93 10^6/uL (4.36-5.78); RDW 14.5 % (11.8-14.1); RDW-SD 44.4 fL; WBC 21.25 10^3/uL (4.4-10.8)
[2022-11-16] MEDS: Albuterol/Ipratropium 3 ML UPD VIAL 6 ML UPD (05:24)
[2022-11-16 05:26] LABS: Absolute Basophil Count 0.15 10^3/uL (0.0-0.2); Absolute Lymphocyte Count 0.47 10^3/uL (1.2-3.4); Diff Comment Agrees w/ Instrument; RBC Morphology Normal
[2022-11-16] MEDS: methylPREDNISolone SUCC 125 MG VIAL IVP (05:26)
[2022-11-16 05:32] LABS: ALT 159 U/L (16-63); AST 106 U/L (15-37); Albumin 3.3 g/dL (3.4-5.0); Alkaline Phosphatase 106 U/L (46-116); Anion Gap 7.9 mmol/L (3-11); BUN 15 mg/dL (7-18); Bilirubin, Total 1.3 mg/dL (0.2-1.0); CO2 29.1 mmol/L (21.0-32.0); Calcium 9.2 mg/dL (8.5-10.1); Chloride 97 mmol/L (98-107); Glucose 148 mg/dL (74-106); NT-proBNP 216 pg/mL (<300); Potassium 3.6 mmol/L (3.5-5.1); Sodium 134 mmol/L (136-145); Total Protein 8.5 g/dL (6.4-8.2); Troponin I < 50 ng/L (<or=60)
[2022-11-16 05:52] LABS: COVID-19 PCR Negative (Negative); Influenza A PCR Negative (Negative); Influenza B PCR Negative (Negative); RSV PCR Negative (Negative)
[2022-11-16 05:54] LABS: PTT Activated 29.4 sec (21.0-27.5); Prothrombin Time 10.5 sec (9.3-11.0)
[2022-11-16 05:57] LABS: Source Nasopharynx
[2022-11-16] MEDS: cefTRIAXone 2 GM/50 ML BAG IVPB (06:10)
[2022-11-16 06:12] LABS: D-Dimer 2179 ng/mlFEU (<500)
--- NOTE | 2022-11-16 06:20 | DI.VRAD_ITS ---
PROCEDURE INFORMATION: Exam: XR Chest Exam date and time: 11/16/2022 4:53 AM Age: 57 years old Clinical indication: Cough and shortness of breath and other: Cough, SOB, R/O pneumonia TECHNIQUE: Imaging protocol: Radiologic exam of the chest. Views: 1 view. COMPARISON: CR XR CHEST 2V PA LATERAL 04/23/2019 10:38 AM FINDINGS: Limitations: Low lung volumes. Portable technique. Lungs: Moderate prominence of the interstitial lung markings with associated somewhat patchy ground-glass opacities in the perihilar regions and lung bases. Pleural spaces: Unremarkable. No pleural effusion. No pneumothorax. Heart/Mediastinum: Mild cardiomegaly. Bones/joints: Unremarkable. IMPRESSION: Moderate prominence of the interstitial lung markings with associated somewhat patchy ground-glass opacities in the perihilar regions and lung bases. These findings may represent mild CHF and/or an infectious/inflammatory process. Dictated and Authenticated by: Chantel Beltran MD. Ordering:MARIAN Escalera MD
[2022-11-16] MEDS: DOXYCYCLINE 100 MG in Normal Saline 100 ML IVPB ×2 (07:05→17:42)
--- NOTE | 2022-11-16 08:00 | DI.CT_ITS ---
Exam(s) CT CHEST PE ABD PELVIS W EXAM: CT CHEST PE ABD PELVIS W CLINICAL HISTORY: pneumonia, elevated dimer, r/o pe. TECHNIQUE: Imaging Protocol: Axial CT angiography was performed with multi-slice acquisition and m ulti-planar and/or 3D reconstructions. CONTRAST MATERIAL: Intravenous: Omnipaque 350 Contrast volume:100 ml Oral: None COMPARISON: CT CT CHEST PE CTA from 04/23/2019 FINDINGS: CHEST: Quality of this study is limited by respiratory motion and suboptimal bolus injection timing. PULMONARY ARTERIES: There are no intra-articular filling defects within the central pulmonary arterie s. Or distal arteries are difficult to evaluate on this study. LUNGS: There are bilateral nodular infiltrates. The largest in the left lung is adjacent left heart border measuring 3 x 2 cm. Similar size nodular infiltrate is seen in the superior segment left lowe r lobe, measuring 2.3 by 1.8 cm. Smaller infiltrates seen in the opposite-right lung. There are no pleural effusions.. MEDIASTINUM: There are slightly enlarged lymph nodes in both hilar regions as well as the subcarinal region. There is no adenopathy in the anterior mediastinal fat. Visualized thyroid unremarkable. CARDIAC: Cardiomegaly. No pericardial effusion. Maximum diameter of the ascending thoracic aorta is prominent at 4 cm. No evidence of dissection. OSSEOUS: No fractures.. ABDOMEN: There is no ascites. LIVER: Liver is somewhat hypodense implying steatosis. There are no discrete focal hepatic lesions a nd there is no dilatation of intrahepatic ducts. GALLBLADDER/BILIARY: Mildly distended. No radiopaque gallstones evident. CBD is not dilated. PANCREAS: No evidence of pancreatic mass nor dilatation of the pancreatic duct. SPLEEN: There is prominent splenic lobulation. Mild splenomegaly. Splenic and portal veins are reza nt. ADRENALS: There are no significant adrenal masses. KIDNEYS:No cysts evident. No calculi nor hydronephrosis. No solid renal masses. ABDOMINAL AORTA: Abdominal aorta is not enlarged. LYMPH NODES: There is no retroperitoneal or para-aortic adenopathy. ABDOMINAL WALL/GI: There is subcutaneous fat streaking in the midline above the umbilicus. Hernia se en at this level which appears to contain fat and this fat exhibits some abnormal streaking. Also no susi few adjacent non edematous small bowel loops are noted at the level the neck of the hernia sac. No bowel obstruction. PELVIS: LYMPH NODES: There is no intrapelvic nor inguinal adenopathy. GI: No evidence of appendicitis.No evidence of sigmoid diverticulitis. URINARY BLADDER: No calculi nor masses evident REPRODUCTIVE: Prostate size normal. Seminal vesicles unremarkable. OSSEOUS: No significant osseous lesions. No fractures. Chronic degenerative disc disease L5-S1 and L3-4 levels. IMPRESSION: 1. No evidence of obvious acute pulmonary emboli nor pulmonary infarction. There is limited opacific ation of segmental pulmonary arteries. 2. There are nodular infiltrates in both lungs as described above. Requires close follow-up, includi ng repeat CT scan after appropriate clinical interval.. There are no pleural effusions. 3. Enlarged lymph nodes are noted in both hilar regions and there is mild subcarinal adenopathy. 4. 4 cm diameter ascending thoracic aorta. No dissection evident. 5. There is an anterior abdominal wall supraumbilical hernia which contains fat which exhibits abnorm al streaking. Adjacent small bowel loops do not appear edematous and there is no bowel obstruction. Other findings as above. First read by [facility]. RADIATION DOSE DELIVERED: 2,143.15mGy.cm Total DLP DATA REPOSITORY: All CT scans at this facility are submitted to the National Radiology Data Registry (NRDR) Dose Index Registry (DIR) with the [employer] (ACR). RADIATION OPTIMIZATION: All CT scans at this facility use at least one of these dose optimization te chniques: automated exposure control; mA and/or kV adjustment per patient size (includes targeted exa ms where dose is matched to clinical indication); or iterative reconstruction.
[2022-11-16] MEDS: Normal Saline - Diluent 50 ML VIAL IJ (08:05)
[2022-11-16] MEDS: Omnipaque 350 MG/ML 100 ML BTL IJ (08:05)
[2022-11-16] MEDS: Normal Saline Flush 10 ML SYR IVP (08:06)
[2022-11-16 08:15] LABS: Creatine Kinase 1209 U/L (39-308)
[2022-11-16 08:20] LABS: Procalcitonin 1.8 ng/mL
--- NOTE | 2022-11-16 08:28 | DI.VRAD_ITS ---
PROCEDURE INFORMATION: Exam: CTA Chest With Contrast CTA Abdomen With Contrast Exam date and time: 11/16/2022 6:24 AM Age: 57 years old Clinical indication: Other: Pneumonia/elevated d-dimer; Difficulty breathing or dyspnea and shortness of breath. Transaminitis. TECHNIQUE: Imaging protocol: Computed tomographic angiography of the chest with contrast. Computed tomographic angiography of the abdomen with contrast. 3D rendering (Not supervised by radiologist): MIP and/or 3D reconstructed images were created by the technologist. Radiation optimization: All CT scans at this facility use at least one of these dose optimization techniques: automated exposure control; mA and/or kV adjustment per patient size (includes targeted exams where dose is matched to clinical indication); or iterative reconstruction. Contrast material: [id number]; Contrast volume: 100 ml; Contrast route: INTRAVENOUS (IV); COMPARISON: CT CHEST PE CTA 04/23/2019 11:38 AM FINDINGS: Limitations: Respiratory motion artifact. Suboptimal timing of the contrast bolus in the abdomen and pelvis, which was imaged in the portal venous phase. VASCULATURE: Pulmonary arteries: Limited evaluation of the segmental pulmonary arteries due to respiratory motion artifact. No pulmonary arterial filling defects identified. Aorta: No aortic aneurysm. No aortic dissection. Celiac trunk and mesenteric arteries: No occlusion or significant stenosis. Renal arteries: No occlusion or significant stenosis. CHEST: Lungs: [id number] peribronchovascular nodular opacities in the right middle lobe , left upper lobe, and left lower lobe. A somewhat more focally prominent nodular opacity in the left upper lobe measures 2 cm (image 187/series 10). Pleural spaces: Unremarkable. No pneumothorax. No pleural effusion. Heart: Mild cardiomegaly. Coronary arteries: Mild atherosclerotic calcifications of the coronary arteries. ABDOMEN AND PELVIS: Liver: No mass. Gallbladder and bile ducts: Unremarkable. No calcified stones. No ductal dilation. Pancreas: Unremarkable. No mass. No ductal dilation. Spleen: Unremarkable. No splenomegaly. Adrenal glands: Unremarkable. No mass. Kidneys and ureters: Unremarkable. No solid mass. No hydronephrosis. Stomach and bowel: Unremarkable. No obstruction. No mucosal thickening. Appendix: Normal appendix. Intraperitoneal space: Unremarkable. No free air. No significant fluid collection. Lymph nodes: Mediastinal adenopathy, with dental sales representative lymph node(s) including a 1.2 cm right paratracheal lymph node, a 1.3 cm subcarinal lymph node, and a 1 cm prevascular lymph node. Enlarged left hilar lymph node measuring 1 cm. There is also a prominent 9 mm right posterior mediastinal lymph node. No right hilar or bilateral axillary lymphadenopathy. No retroperitoneal or pelvic lymphadenopathy. Bones/joints: Unremarkable. No acute fracture. Soft tissues: Moderate diastasis of the rectus abdominus muscles. Small to moderate size fat containing supraumbilical ventral midline hernia, just above the umbilicus, with possible mild stranding of the fat in the hernia neck. IMPRESSION: 1. No evidence of pulmonary embolism. Limited evaluation of the segmental pulmonary arteries. 2. Eivl-ms-stupbgrj peribronchovascular nodular opacities in the right middle lobe, left upper lobe, and left lower lobe, suspicious for pneumonia. 3. A focally more prominent nodular density in the left upper lobe measuring 2 cm may also be infectious/inflammatory in nature, however other etiologies are not entirely excluded. Recommend follow-up CT Chest in 3 months to confirm resolution after an appropriate course of treatment. (Reference: Jag) 4. Mild mediastinal and hilar lymphadenopathy. This is nonspecific and may be reactive in nature. This can also be reassessed at time of follow-up chest CT in 3 months. 5. Small to moderate size fat containing supraumbilical ventral midline hernia, just above the umbilicus, with possible mild stranding of the fat in the hernia neck. Correlate with physical examination. REFERENCES: Jag H, et al. Guidelines for Management of Incidental Pulmonary Nodules Detected on CT Images: From the Fleischner Society 2017. Radiology. 2017;284(1):228-243. THIS REPORT CONTAINS FINDINGS THAT MAY BE CRITICAL TO PATIENT CARE. The findings were verbally communicated by me to Dr. Thompson via telephone conference at 8:27 AM EST on 11/16/2022. The findings were acknowledged and understood. Dictated and Authenticated by: Chantel Beltran MD. Ordering:MARIAN Escalera MD
--- NOTE | 2022-11-16 08:55 | W.EDPROG ---
Date of service: 11/16/22 Time of Service: 08:00 Medical Decision Making 0800 --please see Dr. Warner's note for initial presentation, exam and plan. Case endorsed to follow-up on CT chest and if negative for PE, will plan for admission here for IV antibiotics for pneumonia. 0830 --CT chest negative for PE but does confirm findings of pneumonia. CT also notes scattered nodular opacities of which patient was unaware and informed and advised to obtain a repeat CT chest in 3 months for monitoring. No acute abdominal findings. Patient is currently on 3 L nasal cannula and oxygen saturation 92%. He remains tachycardic into the low 100s. He is agreeable with plan for admission. Case discussed with hospitalist who accepts pt for admission. Medical Records Medical records reviewed: Yes I reviewed the patient's medical records. Imaging Data Radiologic Study: Radiologist's impression: CTA Chest With Contrast CTA Abdomen With Contrast Exam date and time: 11/16/2022 6:24 AM Age: 57 years old Clinical indication: Other: Pneumonia/elevated d-dimer; Difficulty breathing or dyspnea and shortness of breath. Transaminitis. TECHNIQUE: Imaging protocol: Computed tomographic angiography of the chest with contrast. Computed tomographic angiography of the abdomen with contrast. 3D rendering (Not supervised by radiologist): MIP and/or 3D reconstructed images were created by the technologist. Radiation optimization: All CT scans at this facility use at least one of these dose optimization techniques: automated exposure control; mA and/or kV adjustment per patient size (includes targeted exams where dose is matched to clinical indication); or iterative reconstruction. Contrast material: [id number]; Contrast volume: 100 ml; Contrast route: INTRAVENOUS (IV);? COMPARISON: CT CHEST PE CTA 04/23/2019 11:38 AM FINDINGS: Limitations: Respiratory motion artifact. Suboptimal timing of the contrast bolus in the abdomen and pelvis, which was imaged in the portal venous phase. VASCULATURE: Pulmonary arteries: Limited evaluation of the segmental pulmonary arteries due to respiratory motion artifact. No pulmonary arterial filling defects identified. Aorta: No aortic aneurysm. No aortic dissection. Celiac trunk and mesenteric arteries: No occlusion or significant stenosis. Renal arteries: No occlusion or significant stenosis. CHEST: Lungs: Ionu-[id number] peribronchovascular nodular opacities in the right middle lobe , left upper lobe, and left lower lobe. A somewhat more focally prominent nodular opacity in the left upper lobe measures 2 cm (image 187/series 10). Pleural spaces: Unremarkable. No pneumothorax. No pleural effusion. Heart: Mild cardiomegaly. Coronary arteries: Mild atherosclerotic calcifications of the coronary arteries. ABDOMEN AND PELVIS: Liver: No mass. Gallbladder and bile ducts: Unremarkable. No calcified stones. No ductal dilation. Pancreas: Unremarkable. No mass. No ductal dilation. Spleen: Unremarkable. No splenomegaly. Adrenal glands: Unremarkable. No mass. Kidneys and ureters: Unremarkable. No solid mass. No hydronephrosis. Stomach and bowel: Unremarkable. No obstruction. No mucosal thickening. Appendix: Normal appendix. Intraperitoneal space: Unremarkable. No free air. No significant fluid collection. Lymph nodes: Mediastinal adenopathy, with customer sales representative lymph node(s) including a 1.2 cm right paratracheal lymph node, a 1.3 cm subcarinal lymph node, and a 1 cm prevascular lymph node. Enlarged left hilar lymph node measuring 1 cm. There is also a prominent 9 mm right posterior mediastinal lymph node. No right hilar or bilateral axillary lymphadenopathy. No retroperitoneal or pelvic lymphadenopathy. Bones/joints: Unremarkable. No acute fracture. Soft tissues: Moderate diastasis of the rectus abdominus muscles. Small to moderate size fat containing supraumbilical ventral midline hernia, just above the umbilicus, with possible mild stranding of the fat in the hernia neck. IMPRESSION: 1. No evidence of pulmonary embolism. Limited evaluation of the segmental pulmonary arteries. 2. Luye-mr-ctoofajf peribronchovascular nodular opacities in the right middle lobe, left upper lobe, and left lower lobe, suspicious for pneumonia. 3. A focally more prominent nodular density in the left upper lobe measuring 2 cm may also be infectious/inflammatory in nature, however other etiologies are not entirely excluded. Recommend follow-up CT Chest in 3 months to confirm resolution after an appropriate course of treatment. (Reference: Jag) 4. Mild mediastinal and hilar lymphadenopathy. This is nonspecific and may be reactive in nature. This can also be reassessed at time of follow-up chest CT in 3 months. 5. Small to moderate size fat containing supraumbilical ventral midline hernia, just above the umbilicus, with possible mild stranding of the fat in the hernia neck. Correlate with physical examination. Lab Data Lab results reviewed: Yes I reviewed the patient's lab results. Labs: 12/25/22 08:45 Blood Blood Culture - Pending 11/16/22 08:45 Blood Blood Culture - Pending Laboratory Tests Range/Units 11/16/22 11/16/22 11/16/22 04:55 04:55 04:55 WBC (4.4-10.8) 10^3/uL RBC (4.36-5.78) 10^6/uL Hgb (13.5-17.5) g/dL Hct (40.0-50.0) % MCV (80-95) fL MCH (27.0-33.0) pg MCHC (32.0-36.0) % RDW (11.8-14.1) % Plt Count (130-400) 10^3/uL MPV (8.0-11.0) fL Immature Gran % Neutrophils % Lymphocytes % Monocytes % Eosinophils % Basophils % Nucleated RBC % (0.0-0.3) % Absolute Neutrophils (1.2-6.7) 10^3/uL Absolute Lymphocytes (1.2-3.4) 10^3/uL Absolute Monocytes (0.1-0.8) 10^3/uL Absolute Eosinophils (0.0-0.7) 10^3/uL Absolute Basophils (0.0-0.2) 10^3/uL RBC Morphology PT (9.3-11.0) sec INR (0.9-1.1) APTT (21.0-27.5) sec D-Dimer (<500) ng/mlFEU VBG pH (7.31-7.41) VBG pCO2 (41-51) mmHg VBG pO2 mmHg VBG HCO3 (23-28) mmol/L VBG Total CO2 (24-29) mmol/L VBG O2 Saturation % VBG Base Excess (-2-3) mmol/L VBG Lactate (0.6-1.4) mmol/L 2.3 H* Sodium (136-145) mmol/L 134 L Potassium (3.5-5.1) mmol/L 3.6 Chloride (98-107) mmol/L 97 L Carbon Dioxide (21.0-32.0) mmol/L 29.1 Anion Gap (3-11) mmol/L 7.9 BUN (7-18) mg/dL 15 Creatinine (0.70-1.30) mg/dL 1.0 Est GFR (CKD-EPI 2020) (mL/min/1.73m2) 86.70 Glucose (74-106) mg/dL 148 H Calcium (8.5-10.1) mg/dL 9.2 Total Bilirubin (0.2-1.0) mg/dL 1.3 H AST (15-37) U/L 106 H ALT (16-63) U/L 159 H Alkaline Phosphatase (46-116) U/L 106 Creatine Kinase (39-308) U/L Troponin I (<or=60) ng/L < 50 NT-Pro-B Natriuret Pep (<300) pg/mL 216 Total Protein (6.4-8.2) g/dL 8.5 H Albumin (3.4-5.0) g/dL 3.3 L Procalcitonin ng/mL COVID-19 Source Nasopharynx SARS-CoV-2 (PCR) (Negative) Negative Influenza Type A (PCR) (Negative) Negative Influenza Type B (PCR) (Negative) Negative RSV (PCR) (Negative) Negative Range/Units 11/16/22 11/16/22 11/16/22 04:55 04:55 04:55 WBC (4.4-10.8) 10^3/uL 21.25 H RBC (4.36-5.78) 10^6/uL 4.93 Hgb (13.5-17.5) g/dL 14.0 Hct (40.0-50.0) % 41.3 MCV (80-95) fL 84 MCH (27.0-33.0) pg 28.4 MCHC (32.0-36.0) % 33.9 RDW (11.8-14.1) % 14.5 H Plt Count (130-400) 10^3/uL 264 MPV (8.0-11.0) fL 11.3 H Immature Gran % 0.8 Neutrophils % 87.1 Lymphocytes % 2.2 Monocytes % 8.7 Eosinophils % 0.5 Basophils % 0.7 Nucleated RBC % (0.0-0.3) % 0.0 Absolute Neutrophils (1.2-6.7) 10^3/uL 18.51 H Absolute Lymphocytes (1.2-3.4) 10^3/uL 0.47 L Absolute Monocytes (0.1-0.8) 10^3/uL 1.85 H Absolute Eosinophils (0.0-0.7) 10^3/uL 0.11 Absolute Basophils (0.0-0.2) 10^3/uL 0.15 RBC Morphology Normal PT (9.3-11.0) sec 10.5 INR (0.9-1.1) 1.0 APTT (21.0-27.5) sec 29.4 H D-Dimer (<500) ng/mlFEU VBG pH (7.31-7.41) 7.35 VBG pCO2 (41-51) mmHg 51 VBG pO2 mmHg 30 VBG HCO3 (23-28) mmol/L 29 H VBG Total CO2 (24-29) mmol/L 26 VBG O2 Saturation % 57 VBG Base Excess (-2-3) mmol/L 3 VBG Lactate (0.6-1.4) mmol/L Sodium (136-145) mmol/L Potassium (3.5-5.1) mmol/L Chloride (98-107) mmol/L Carbon Dioxide (21.0-32.0) mmol/L Anion Gap (3-11) mmol/L BUN (7-18) mg/dL Creatinine (0.70-1.30) mg/dL Est GFR (CKD-EPI 2020) (mL/min/1.73m2) Glucose (74-106) mg/dL Calcium (8.5-10.1) mg/dL Total Bilirubin (0.2-1.0) mg/dL AST (15-37) U/L ALT (16-63) U/L Alkaline Phosphatase (46-116) U/L Creatine Kinase (39-308) U/L Troponin I (<or=60) ng/L NT-Pro-B Natriuret Pep (<300) pg/mL Total Protein (6.4-8.2) g/dL Albumin (3.4-5.0) g/dL Procalcitonin ng/mL COVID-19 Source SARS-CoV-2 (PCR) (Negative) Influenza Type A (PCR) (Negative) Influenza Type B (PCR) (Negative) RSV (PCR) (Negative) Range/Units 11/16/22 11/16/22 11/16/22 04:55 04:55 04:55 WBC (4.4-10.8) 10^3/uL RBC (4.36-5.78) 10^6/uL Hgb (13.5-17.5) g/dL Hct (40.0-50.0) % MCV (80-95) fL MCH (27.0-33.0) pg MCHC (32.0-36.0) % RDW (11.8-14.1) % Plt Count (130-400) 10^3/uL MPV (8.0-11.0) fL Immature Gran % Neutrophils % Lymphocytes % Monocytes % Eosinophils % Basophils % Nucleated RBC % (0.0-0.3) % Absolute Neutrophils (1.2-6.7) 10^3/uL Absolute Lymphocytes (1.2-3.4) 10^3/uL Absolute Monocytes (0.1-0.8) 10^3/uL Absolute Eosinophils (0.0-0.7) 10^3/uL Absolute Basophils (0.0-0.2) 10^3/uL RBC Morphology PT (9.3-11.0) sec INR (0.9-1.1) APTT (21.0-27.5) sec D-Dimer (<500) ng/mlFEU 2179 H VBG pH (7.31-7.41) VBG pCO2 (41-51) mmHg VBG pO2 mmHg VBG HCO3 (23-28) mmol/L VBG Total CO2 (24-29) mmol/L VBG O2 Saturation % VBG Base Excess (-2-3) mmol/L VBG Lactate (0.6-1.4) mmol/L Sodium (136-145) mmol/L Potassium (3.5-5.1) mmol/L Chloride (98-107) mmol/L Carbon Dioxide (21.0-32.0) mmol/L Anion Gap (3-11) mmol/L BUN (7-18) mg/dL Creatinine (0.70-1.30) mg/dL Est GFR (CKD-EPI 2020) (mL/min/1.73m2) Glucose (74-106) mg/dL Calcium (8.5-10.1) mg/dL Total Bilirubin (0.2-1.0) mg/dL AST (15-37) U/L ALT (16-63) U/L Alkaline Phosphatase (46-116) U/L Creatine Kinase (39-308) U/L 1209 H Troponin I (<or=60) ng/L NT-Pro-B Natriuret Pep (<300) pg/mL Total Protein (6.4-8.2) g/dL Albumin (3.4-5.0) g/dL Procalcitonin ng/mL 1.8 COVID-19 Source SARS-CoV-2 (PCR) (Negative) Influenza Type A (PCR) (Negative) Influenza Type B (PCR) (Negative) RSV (PCR) (Negative) Sign Out Sign Out Data: Sign Out Comment: Follow-up on CT scan. Discussion with hospitalist is already occurred. Last updated by Jw Warner DO at 11/16/22 07:53 Discharge Plan Disposition Patient Disposition: Admit to [facility] Condition: Stable Discharge Details Clinical Impression: Community acquired pneumonia, Transaminitis, Hypoxemia Primary Care Provider: Janine Hilliard V ED Provider: Ting Thompson Home Meds and New Rx's Prescriptions: No Action tamsulosin [Flomax] 0.4 mg capsule 0.4 mg PO DAILY Qty: 90 4RF atorvastatin 40 MG tablet 40 mg PO DAILY potassium citrate 10 MEQ tablet extended release 10 meq PO DAILY hydrochlorothiazide 25 MG tablet 25 mg PO DAILY budesonide-formoterol [Symbicort] 10.2 GM HFA aerosol inhaler 1 puff Inhalation BID PRN lisinopril 10 mg tablet 20 mg PO DAILY cyclobenzaprine 10 MG tablet 10 mg PO DAILY PRN albuterol sulfate 2.5 mg /3 mL (0.083 %) solution for nebulization 3 ml PRN PRN Label Comments: Inhale 1 ampul using nebulizer every four to six hours as needed metoprolol succinate 25 mg tablet extended release 24 hr 25 mg PO DAILY Label Comments: TAKE 1 TABLET BY MOUTH AT BEDTIME
[2022-11-16] MEDS: hydroCHLOROthiazide 25 MG TAB PO (08:59)
[2022-11-16] MEDS: Tamsulosin 0.4 MG CAPCR PO (08:59)
[2022-11-16] MEDS: Potassium Chloride 10 MEQ TABCR PO (08:59)
--- NOTE | 2022-11-16 09:03 | HPE_ITS ---
Date of service: 11/16/22 Time of Service: 09:04 Assessment and Plan Assessment and plan (1) Sepsis: Status: Acute Assessment and plan: Due to CAP (which appears to be secondary to a viral URI), present on admission. Blood cultures pending. Obtain sputum c&S, urine for Legionella and Strep antigens as well as sputum for mycoplasma. Continue empiric ceftriaxone and doxycycline initiated in the ED. Encourage pulmonary toilet. Lactate better (2) Community acquired pneumonia: Status: Acute Assessment and plan: As above (3) Asthma exacerbation: Status: Acute Assessment and plan: As above (4) Acute respiratory failure with hypoxia: Status: Acute Assessment and plan: As above (5) Transaminitis: Status: Acute Assessment and plan: Suspected to be due to mild rhabdomyolysis. Trend CPK, LFTs. (6) Bilateral lower extremity edema: Status: Acute Assessment and plan: D/c IVF. Check echo and venous dopplers (7) Rhabdomyolysis: Status: Acute Assessment and plan: hold IVF until tomorrow. Recheck CPK in am. (8) Obstructive sleep apnea: Status: Chronic Assessment and plan: CPAP QHS (9) DVT prophylaxis: Status: Acute Assessment and plan: SC enoxaparin (10) Discharge planning issues: Status: Acute Assessment and plan: Full code History of Present Illness History of Present Illness Chief Complaint: Shortness of breath and cough Narrative: Mr Elkins is a 57 year old male with PMHx of intermittent asthma, hypertension, hyperlipidemia, Von Willebrand's disease, SOHEILA on CPAP, obesity with BMI of 50.3 kg/m2, who presented to [facility] ER with his , both with respiratory symptoms, having had exposures to both confirmed RSV and influenza. His shortness of breath and cough have been going on for about 10 days. Cough is productive of yellow sputum. He has also been having intermittent nonexertional CP, fevers, chills, sweats, runny nose, sore throat. He has also noted more leg swelling bilaterally and that laying down makes it harder to breathe. He did call EMS last night who gave him an albuterol nebulizer treatment, but came to the ED on his own. Here he was tachypneic and tachycardic. He required 2 L of O2 to saturate 92%. He tested negative for COVID-19, influenza, and RSV in the ED. He was initiated on nebulizer tx and systemic steroids, as he sounded rhonchorous in the ED. His CXR showed interstitial lung markings, patchy groundglass opacities in perihilar regions and lung bases. a CTA of the chest ruled out a PE, but showed opacities in RML, CLAUDIA, and LLL, c/w pneumonia. There was a 2 cm nodule in CLAUDIA. There was mediastinal and hilar lymphadenopathy. The patient was started on empiric doxycycline, and ceftriaxone. Hospitalist admission was requested. The patient is currently on 3L of O2 by AK, saturating 94%. Review of Systems All systems reviewed & are unremarkable except as noted in HPI and below PFSH All Active Problems (Updated 11/16/22 @ 18:16 by Liliana Carroll MD) Rhabdomyolysis (Acute) Transaminitis (Acute) Discharge planning issues (Acute) DVT prophylaxis (Acute) Asthma exacerbation (Acute) Bilateral lower extremity edema (Acute) Acute respiratory failure with hypoxia (Acute) Sepsis (Acute) Community acquired pneumonia (Acute) Transaminitis (Acute) Hypoxemia (Acute) Status post cataract extraction and insertion of intraocular lens of right eye (Chronic 02/07/19) High myopia, right eye (Chronic) Epiretinal membrane (ERM) of right eye (Chronic) Status post cataract extraction and insertion of intraocular lens of left eye (Chronic 01/24/19) High myopia, left eye (Chronic) Amblyopia of right eye (Chronic) Epiretinal membrane (ERM) of left eye (Chronic) Nuclear sclerotic cataract of left eye (Acute) Chronic prostatitis/chronic pelvic pain syndrome (Acute 10/19/17) Hemothorax on right (Acute 09/11/14) Osteoarthritis (Chronic) Asthma (Chronic) Obstructive sleep apnea (Chronic) Medical History (Updated 11/16/22 @ 18:16 by Liliana Carroll MD) Asthma Cortical cataract of left eye Cortical cataract of right eye DJD (degenerative joint disease) Hemothorax on right Hypertension Nuclear sclerotic cataract of right eye Obesity Rib fracture Surgical History (Updated 11/16/22 @ 17:34 by Liliana Carroll MD) H/O chest tube placement H/O umbilical hernia repair Family History (Updated 11/16/22 @ 17:37 by Liliana Carroll MD) Mother Heart disease Maternal Grandmother Hypertension Maternal Aunt No problems noted. Maternal Grandfather Hypertension Uncle Colon cancer Uncle Colon cancer Father Cancer unknown type Paternal Grandfather Cancer unknown type Social History (Updated 11/16/22 @ 17:37 by Liliana Carroll MD) Smoking/Tobacco Use Status: Never Smoking risk assessment performed?: Yes Alcohol Intake: never Drug use: Never Substance use type: does not use Do you feel safe at home: Yes Do you feel safe in your relationship?: Yes Meds Allergies and Home Medications Allergies Allergy/AdvReac Type Severity Reaction Status Date / Time hydromorphone Allergy Unknown itching Unverified 09/09/22 14:28 hydrocodone [Hydrocodone] Allergy ITCHY Unverified 09/09/22 14:28 Home Medications Medication Instructions Recorded Confirmed Type budesonide-formoterol HFA 160 2 puff inhalation BID 03/14/13 11/16/22 History mcg-4.5 mcg/actuation aerosol inhaler (Symbicort) hydrochlorothiazide 25 mg tablet 25 mg PO DAILY 03/14/13 11/16/22 History cyclobenzaprine 10 mg tablet 10 mg PO DAILY PRN 08/22/14 11/16/22 History atorvastatin 40 mg tablet 80 mg PO DAILY 10/19/17 11/16/22 History potassium citrate 10 mEq (1,080 10 meq PO DAILY 10/19/17 11/16/22 History mg) tablet,extended release lisinopril 10 mg tablet 20 mg PO DAILY 09/09/22 11/16/22 History tamsulosin 0.4 mg capsule (Flomax) 0.4 mg PO DAILY #90 tab-caps 09/09/22 11/16/22 Rx albuterol sulfate 2.5 mg/3 mL 3 ml PRN PRN 11/16/22 11/16/22 History (0.083 %) solution for nebulization metoprolol succinate 25 mg 25 mg PO DAILY 11/16/22 11/16/22 History tablet,extended release 24 hr Exam Narrative Exam Narrative: General: Pleasant middle-aged male who is sitting up in a chair, A&Ox3, not dyspenic or tachypneic while on 3L of O2, looks sick Neurological: A&Ox3, no focal deficits Psychiatric: Appropriate speech pattern/content Skin: Visible skin intact HEENT: Atraumatic, normocephalic, EOMI, MMM, clear oropharynx, Mallampati IV Cardiovascular: RRR, no m/r/g Lungs: rales BLL, expiratory rhonchi B Gastrointestinal: soft, obese, nontender Genitourinary: deferred Extremities: +1 BLE edema, symmetric, no c/c Results Imaging Additional studies: CXR: Moderate prominence of the interstitial lung markings with associated somewhat patchy ground-glass opacities in the perihilar regions and lung bases.? These findings may represent mild CHF and/or an infectious/inflammatory process. CTA chest/abdomen/pelvis: 1. No evidence of pulmonary embolism. Limited evaluation of the segmental pulmonary arteries. 2. Pjov-la-wraqoxyx peribronchovascular nodular opacities in the right middle lobe, left upper lobe, and left lower lobe, suspicious for pneumonia. 3. A focally more prominent nodular density in the left upper lobe measuring 2 cm may also be infectious/inflammatory in nature, however other etiologies are not entirely excluded. Recommend follow-up CT Chest in 3 months to confirm resolution after an appropriate course of treatment. (Reference: Jag) 4. Mild mediastinal and hilar lymphadenopathy. This is nonspecific and may be reactive in nature. This can also be reassessed at time of follow-up chest CT in 3 months. 5. Small to moderate size fat containing supraumbilical ventral midline hernia, just above the umbilicus, with possible mild stranding of the fat in the hernia neck. Correlate with physical examination. EKG: ST, HR 119, PVCs, no acute ischemia, non-specific ST-T changes Labs Result diagrams: 11/16/22 04:55 11/16/22 04:55 Labs: Laboratory Results - last 24 hr 11/16/22 11/16/22 11/16/22 04:55 04:55 04:55 WBC RBC Hgb Hct MCV MCH MCHC RDW Plt Count MPV Immature Gran % Neutrophils % Lymphocytes % Monocytes % Eosinophils % Basophils % Nucleated RBC % Absolute Neutrophils Absolute Lymphocytes Absolute Monocytes Absolute Eosinophils Absolute Basophils RBC Morphology PT INR APTT D-Dimer VBG pH VBG pCO2 VBG pO2 VBG HCO3 VBG Total CO2 VBG O2 Saturation VBG Base Excess VBG Lactate 2.3 H* Sodium 134 L Potassium 3.6 Chloride 97 L Carbon Dioxide 29.1 Anion Gap 7.9 BUN 15 Creatinine 1.0 Est GFR (CKD-EPI 2020) 86.70 Glucose 148 H Calcium 9.2 Total Bilirubin 1.3 H AST 106 H ALT 159 H Alkaline Phosphatase 106 Creatine Kinase Troponin I < 50 NT-Pro-B Natriuret Pep 216 Total Protein 8.5 H Albumin 3.3 L Procalcitonin COVID-19 Source Nasopharynx SARS-CoV-2 (PCR) Negative Influenza Type A (PCR) Negative Influenza Type B (PCR) Negative RSV (PCR) Negative 11/16/22 11/16/22 11/16/22 04:55 04:55 04:55 WBC 21.25 H RBC 4.93 Hgb 14.0 Hct 41.3 MCV 84 MCH 28.4 MCHC 33.9 RDW 14.5 H Plt Count 264 MPV 11.3 H Immature Gran % 0.8 Neutrophils % 87.1 Lymphocytes % 2.2 Monocytes % 8.7 Eosinophils % 0.5 Basophils % 0.7 Nucleated RBC % 0.0 Absolute Neutrophils 18.51 H Absolute Lymphocytes 0.47 L Absolute Monocytes 1.85 H Absolute Eosinophils 0.11 Absolute Basophils 0.15 RBC Morphology Normal PT 10.5 INR 1.0 APTT 29.4 H D-Dimer VBG pH 7.35 VBG pCO2 51 VBG pO2 30 VBG HCO3 29 H VBG Total CO2 26 VBG O2 Saturation 57 VBG Base Excess 3 VBG Lactate Sodium Potassium Chloride Carbon Dioxide Anion Gap BUN Creatinine Est GFR (CKD-EPI 2020) Glucose Calcium Total Bilirubin AST ALT Alkaline Phosphatase Creatine Kinase Troponin I NT-Pro-B Natriuret Pep Total Protein Albumin Procalcitonin COVID-19 Source SARS-CoV-2 (PCR) Influenza Type A (PCR) Influenza Type B (PCR) RSV (PCR) 11/16/22 11/16/22 11/16/22 04:55 04:55 04:55 WBC RBC Hgb Hct MCV MCH MCHC RDW Plt Count MPV Immature Gran % Neutrophils % Lymphocytes % Monocytes % Eosinophils % Basophils % Nucleated RBC % Absolute Neutrophils Absolute Lymphocytes Absolute Monocytes Absolute Eosinophils Absolute Basophils RBC Morphology PT INR APTT D-Dimer 2179 H VBG pH VBG pCO2 VBG pO2 VBG HCO3 VBG Total CO2 VBG O2 Saturation VBG Base Excess VBG Lactate Sodium Potassium Chloride Carbon Dioxide Anion Gap BUN Creatinine Est GFR (CKD-EPI 2020) Glucose Calcium Total Bilirubin AST ALT Alkaline Phosphatase Creatine Kinase 1209 H Troponin I NT-Pro-B Natriuret Pep Total Protein Albumin Procalcitonin 1.8 COVID-19 Source SARS-CoV-2 (PCR) Influenza Type A (PCR) Influenza Type B (PCR) RSV (PCR) Last Vital Signs Temp 36.6 C 11/16/22 07:56 Pulse 117 H 11/16/22 07:56 Resp 22 11/16/22 08:10 BP 136/58 L 11/16/22 07:58 Pulse Ox 94 11/16/22 07:56
[2022-11-16] MEDS: Normal Saline 1,000 ML 150 ML IV (09:05)
[2022-11-16] MEDS: Metoprolol CR 25 MG TABCR PO (09:17)
[2022-11-16] MEDS: Lisinopril 20 MG TAB PO (09:17)
[2022-11-16 09:20] LABS: Lactate 1.5 mmol/L (0.6-1.4)
--- NOTE | 2022-11-16 09:23 | NUR.NOTE ---
pt provided with meal tray Nursing Note:
[2022-11-16] MEDS: Albuterol/Ipratropium 3 ML UPD VIAL UPD ×2 (12:16→17:40)
[2022-11-16] MEDS: guaiFENesin 600 MG TABCR PO (19:55)
[2022-11-16] MEDS: Benzonatate 200 MG CAP PO (19:55)
[2022-11-17] VITALS (12 sets, daily range): BP systolic 131–161; BP diastolic 63–94; PULSE 80–95; RESP 1–32; TEMP 36.2–36.7; O2SAT 89–97
[2022-11-17] MEDS: Albuterol/Ipratropium 3 ML UPD VIAL UPD ×4 (00:30→17:29)
[2022-11-17] MEDS: cefTRIAXone 2 GM/50 ML BAG IVPB (05:55)
[2022-11-17] MEDS: DOXYCYCLINE 100 MG in Normal Saline 100 ML IVPB ×2 (07:00→18:47)
[2022-11-17 07:53] LABS: Abs Immature Grans 0.44 10^3/uL (0.0-0.06); Absolute Eosinophil Count 0.07 10^3/uL (0.0-0.7); Absolute Neutrophil Count 18.94 10^3/uL (1.2-6.7); Basophils % 0.5; Eosinophils % 0.3; HCT 38.2 % (40.0-50.0); HGB 12.5 g/dL (13.5-17.5); Lymphocytes % 4.8; MCH 27.8 pg (27.0-33.0); MCHC 32.7 % (32.0-36.0); MCV 85 fL (80-95); MPV 11.4 fL (8.0-11.0); Monocytes % 7.8; RBC 4.49 10^6/uL (4.36-5.78); RDW 14.6 % (11.8-14.1); RDW-SD 45.2 fL; WBC 22.39 10^3/uL (4.4-10.8)
--- NOTE | 2022-11-17 08:00 | DI.US_ITS ---
Exam(s) US EXTREMITY VENOUS BI EXAM: US EXTREMITY VENOUS BI CLINICAL HISTORY: BLE edema, concern for DVT TECHNIQUE: Grayscale, color, and doppler imaging of the deep venous system of both lower extremities was performed. COMPARISON: US RENAL ULTRASOUND(P) from 10/08/2016 FINDINGS: There is no evidence of intraluminal thrombus and there is normal compression and augmentation demons trated within the common femoral veins, femoral veins, and popliteal veins of both lower extremities. In the calves the interrogated veins also exhibit normal compression/ augmentation properties. The greater saphenous veins also appear patent as do the saphenofemoral junctions bilaterally.. IMPRESSION: 1. No ultrasound evidence of DVT in either lower extremity. DATA REPOSITORY:
[2022-11-17 08:05] LABS: Absolute Basophil Count 0.11 10^3/uL (0.0-0.2); Absolute Lymphocyte Count 1.07 10^3/uL (1.2-3.4); Absolute Monocyte Count 1.75 10^3/uL (0.1-0.8)
[2022-11-17 08:19] LABS: ALT 323 U/L (16-63); AST 209 U/L (15-37); Alkaline Phosphatase 119 U/L (46-116); Anion Gap 9.4 mmol/L (3-11); BUN 29 mg/dL (7-18); Bilirubin, Direct 0.2 mg/dL (0.0-0.2); Bilirubin, Total 0.4 mg/dL (0.2-1.0); CO2 27.6 mmol/L (21.0-32.0); Calcium 9.6 mg/dL (8.5-10.1); Chloride 102 mmol/L (98-107); Glucose 147 mg/dL (74-106); Magnesium 2.4 mg/dL (1.8-2.4); Potassium 3.8 mmol/L (3.5-5.1); Sodium 139 mmol/L (136-145)
[2022-11-17] MEDS: Metoprolol CR 25 MG TABCR PO (08:27)
[2022-11-17] MEDS: Potassium Citrate 1080 MG TABCR PO (08:27)
[2022-11-17] MEDS: predniSONE 20 MG TAB 60 MG PO (08:27)
[2022-11-17] MEDS: Tamsulosin 0.4 MG CAPCR PO (08:27)
[2022-11-17 08:28] LABS: Creatine Kinase 1105 U/L (39-308)
[2022-11-17] MEDS: guaiFENesin 600 MG TABCR PO ×2 (08:28→20:02)
[2022-11-17] MEDS: Benzonatate 200 MG CAP PO ×3 (08:28→20:02)
[2022-11-17] MEDS: Pantoprazole 20 MG TABCR PO (08:28)
[2022-11-17] MEDS: Lisinopril 20 MG TAB PO (08:28)
[2022-11-17 09:11] LABS: Diff Comment Agrees w/ Instrument; Neutrophils % 84.6; Platelet Count 290 10^3/uL (130-400); RBC Morphology Normal
--- NOTE | 2022-11-17 11:11 | RESPIRATORY ---
Patient uses an [id number] Auto-Set with Auto-titrating settigns of min 8/ max 16 with no O2 bled in. Patient is unsure what the DME is but uses a ResMed Air Quattro size Medium FFM.
[2022-11-17] MEDS: Refresh PLUS Eye Drops 0.4ml OP ×2 (12:15→20:11)
[2022-11-17] MEDS: Furosemide 20 MG/2 ML VIAL IVP ×2 (12:15→16:01)
--- NOTE | 2022-11-17 12:15 | DI.VRAD_ITS ---
PROCEDURE INFORMATION: Exam: US Duplex Lower Extremity Veins, Bilateral Exam date and time: 11/17/2022 11:40 AM Age: 57 years old Clinical indication: Edema, localized; Lower extremity, bilateral TECHNIQUE: Imaging protocol: Real-time Duplex ultrasound of the bilateral extremities with 2-D penn scale, color Doppler flow and spectral waveform analysis with image documentation. Complete exam focused on the bilateral lower extremity veins. COMPARISON: None provided. FINDINGS: Right deep veins: Unremarkable. The common femoral, femoral, proximal profunda femoral and popliteal veins are patent without thrombus. Normal Doppler waveforms. Normal compressibility and/or augmentation response. The posterior tibial vein in the calf is patent as well. Right superficial veins: Saphenofemoral junction is patent without thrombus. Left deep veins: Unremarkable. The common femoral, femoral, proximal profunda femoral and popliteal veins are patent without thrombus. Normal Doppler waveforms. Normal compressibility and/or augmentation response. The posterior tibial vein in the calf is patent as well. Left superficial veins: Saphenofemoral junction is patent without thrombus. Soft tissues: Unremarkable. IMPRESSION: No deep venous thrombus demonstrated in either lower extremity. Dictated and Authenticated by: Curry Torres MD. Ordering:GRANT Ford MD
[2022-11-17] MEDS: Normal Saline Flush 10 ML SYR IVP ×2 (12:16→16:02)
[2022-11-17] MEDS: Lactated Ringers 1,000 ML 150 ML IV ×2 (12:16→20:02)
--- NOTE | 2022-11-17 16:31 | W.PM.PROGNOT ---
Date of Service Date of service: 11/17/22 Time of Service: 16:31 Assessment and Plan Assessment and plan (1) Sepsis: Status: Acute Assessment and plan: Due to CAP (which appears to be secondary to a viral URI), present on admission. Blood cultures NGTD. Sputum C&S: normal deandre so far. Await urine for Legionella and Strep antigens as well as sputum mycoplasma PCR. Continue empiric ceftriaxone and doxycycline initiated in the ED. Encourage pulmonary toilet. Lactate better (2) Community acquired pneumonia: Status: Acute Assessment and plan: As above (3) Asthma exacerbation: Status: Acute Assessment and plan: As above (4) Acute respiratory failure with hypoxia: Status: Acute Assessment and plan: As above (5) Transaminitis: Status: Acute Assessment and plan: Suspected to be due to mild rhabdomyolysis. CT w/ mild hepatic steatosis and I do not think that it is responsible for the LFT elevation. MIld passive congestion of the liver could be, and he does have SOHEILA so pulmonary hypertension with hepatic reflux is possible. Await echocardiogram. (6) Bilateral lower extremity edema: Status: Acute Assessment and plan: IVF had to be resumed today due to persistent rhabdomyolysis. Await echo. Venous dopplers negative for DVT. Given lasix x 2 today while continuing IVF. Will give TEDS. (7) Rhabdomyolysis: Status: Acute Assessment and plan: Continue to trend CPK while on IVF + lasix. Hold statin. Likely responsible for LFT elevation. Recheck in am. Await hepatitis studies. (8) Obstructive sleep apnea: Status: Chronic Assessment and plan: Continue CPAP QHS (9) DVT prophylaxis: Status: Acute Assessment and plan: SC enoxaparin (10) Discharge planning issues: Status: Acute Assessment and plan: Full code Continues to require hospitalization. Subjective Subjective Interval history since last seen: Feels better today. Coughing less. Breathing is better. Does note leg swelling. Agrees to wear TEDS. Has been ambulating. Remains on 3L of O2. Did not require O2 when he was on CPAP. Feels more awake today. Exam Narrative Exam Narrative: General: Pleasant middle-aged male who is sitting up in a chair, A&Ox3, not dyspenic or tachypneic while on 3L of O2, looks significantly better HEENT: EOMI, MMM Cardiovascular: RRR, no m/r/g Lungs: rales BLL, no wheezing heard today Gastrointestinal: soft, obese, nontender Extremities: +1 BLE edema, symmetric, no c/c Objective Last Vital Signs Temp 36.6 C 11/17/22 15:03 Pulse 89 11/17/22 15:03 Resp 24 11/17/22 15:43 BP 132/68 11/17/22 15:03 Pulse Ox 92 11/17/22 15:03 Laboratory Results - last 24 hr 11/17/22 11/17/22 06:35 06:35 WBC 22.39 H RBC 4.49 Hgb 12.5 L Hct 38.2 L MCV 85 MCH 27.8 MCHC 32.7 RDW 14.6 H Plt Count 290 MPV 11.4 H Immature Gran % 2.0 Neutrophils % 84.6 Lymphocytes % 4.8 Monocytes % 7.8 Eosinophils % 0.3 Basophils % 0.5 Nucleated RBC % 0.0 Absolute Neutrophils 18.94 H Absolute Lymphocytes 1.07 L Absolute Monocytes 1.75 H Absolute Eosinophils 0.07 Absolute Basophils 0.11 RBC Morphology Normal Sodium 139 Potassium 3.8 Chloride 102 Carbon Dioxide 27.6 Anion Gap 9.4 BUN 29 H Creatinine 1.0 Est GFR (CKD-EPI 2020) 86.70 Glucose 147 H Calcium 9.6 Magnesium 2.4 Total Bilirubin 0.4 Conjugated Bilirubin 0.2 AST 209 H ALT 323 H Alkaline Phosphatase 119 H Creatine Kinase 1105 H Total Protein 8.0 Albumin 3.0 L
[2022-11-17] MEDS: Budesonide/Formoterol 160/4.5 6 GM 60 PUFF INH IH (20:03)
[2022-11-17 22:37] LABS: Legionella Ag Detection Urine Negative (Negative)
[2022-11-18] VITALS (15 sets, daily range): BP systolic 138–162; BP diastolic 69–88; PULSE 80–94; RESP 2–24; TEMP 36.2–37.1; O2SAT 89–96
[2022-11-18] MEDS: Lactated Ringers 1,000 ML 150 ML IV (03:05)
[2022-11-18] MEDS: cefTRIAXone 2 GM/50 ML BAG IVPB (05:55)
[2022-11-18] MEDS: Albuterol/Ipratropium 3 ML UPD VIAL UPD ×4 (06:41→23:17)
[2022-11-18] MEDS: DOXYCYCLINE 100 MG in Normal Saline 100 ML IVPB ×2 (06:41→17:53)
[2022-11-18] MEDS: Budesonide/Formoterol 160/4.5 6 GM 60 PUFF INH IH ×2 (07:47→19:19)
[2022-11-18 07:53] LABS: Lab Add On Test DONE
[2022-11-18 07:58] LABS: Abs Immature Grans 0.94 10^3/uL (0.0-0.06); Absolute Basophil Count 0.15 10^3/uL (0.0-0.2); Absolute Monocyte Count 1.64 10^3/uL (0.1-0.8); Basophils % 0.7; HCT 39.4 % (40.0-50.0); HGB 12.8 g/dL (13.5-17.5); Immature Grans % 4.5; Lymphocytes % 9.9; MCH 27.7 pg (27.0-33.0); MCHC 32.5 % (32.0-36.0); MCV 85 fL (80-95); MPV 11.1 fL (8.0-11.0); Monocytes % 7.9; Platelet Count 304 10^3/uL (130-400); RBC 4.62 10^6/uL (4.36-5.78); RDW 14.8 % (11.8-14.1); RDW-SD 46.1 fL; WBC 20.79 10^3/uL (4.4-10.8)
--- NOTE | 2022-11-18 08:00 | DI.US_ITS ---
APPROVED REPORT EXAM: Comprehensive 2D, Doppler, and color-flow Echocardiogram Patient Location: In-Patient Room/Bed: [facility] Domestic Helper: Ilsa Cordova RDCS (AE) Indications: Led edema, Orthopnea, Question of CHF Other Information Study Quality: Fair. Technically limited study due to body habitus, inability to position patient sca n done sitting. Conclusion Normal left ventricular wall thickness and chamber size. Estimated ejection fraction is 55 to 60%. Wall motion is normal Right ventricle appears grossly normal in size The left atrium is mildly dilated. The right atrium appears normal in size There is no structural valvular disease Estimated right ventricular systolic pressure is 43 mmHg Dilated ascending aorta measuring 4.14 cm Wall motion Left Ventricle The left ventricle is normal size. The left ventricular systolic function is normal. The left ventric ular ejection fraction is within the normal range. There is normal left ventricular wall thickness. T here is normal LV segmental wall motion. There is no ventricular septal defect visualized. LVEF is 57 %. Right Ventricle The right ventricle is normal size. The RVSP is 43.0 mmHg. Atria Left atrium is mildly dilated. The right atrium size is normal. The interatrial septum is intact with no evidence for an atrial septal defect. Aortic Valve The aortic valve is normal in structure. Aortic valve is trileaflet. There is no aortic valvular sten osis. No aortic regurgitation is present. Mitral Valve The mitral valve is normal in structure. No evidence of mitral valve stenosis. Trace mitral regurgita tion. Tricuspid Valve The tricuspid valve is normal in structure. There is no tricuspid valve stenosis. Trace tricuspid reg urgitation. Pulmonic Valve Pulmonic valve is not well visualized. There is no pulmonic valvular stenosis. There is no pulmonic v alvular regurgitation. Great Vessels The aortic root is normal in size. The ascending aorta is moderately dilated. Aortic arch is not well visualized. The IVC collapses <50% with inspiration. Pericardium There is no pericardial effusion. 2D Dimensions IVSD d PLAX 0.96 cm M: 0.6-1.2 LV Vol A2C d MOD 158.9 mL LVPW d PLAX 0.96 cm M: 0.6 - 1.2 LV Vol A4C d MOD 126.0 mL LVID d PLAX 5.32 cm M: 4.2 - 5.8 LA vol/ BSA A4C s A-L 50.5 mL/m2 LVDs 3.60 cm M: 2.5 - 4.0 LA Area A4C s MOD 30.10 cm2 Ao Root d 2.94 cm M: 3.1 - 3.7 LV EF A4C MOD 58.2 % RA Area A4C 17.21 cm2 LV EF A2C MOD 56.8 % RA Vol/ BSA A4C s A-L 20.1 mL/m2 LV EF Biplane MOD 56.6 % Ao Asc Diam d 4.14 cm M: 2.6 - 3.4 SV 83.99 mL LV EF Teichholz 59.8 % SV Index 38.38 mL/m2 LVEF (Pastrana's) 56.59 % M: 52 - 72 LV Volume 108.10 mL M: 62 - 150 LV Volume Index 49.36 mL/m2 M: 34 - 74 LV Vol Biplane MOD 148.4 mL FS 32.05 % M-Mode TAPSE 3.31 cm (M/F) >1.7 LV Diastology MV E' medial 0.111 (>0.07 m/s) E/A Ratio 1.1 LV E/e MED 8.85 (<14) MV E Vmax 0.99 (0.4-1.3 m/s) MV E' lateral 0.093 (>0.1 m/s) MV A Vmax 0.90 (0.4-1.3 m/s) LV E/e LAT 10.60 (<14) MV E/A Ratio 1.06 MV E/E' medial 8.90 MV E/E' lateral 10.61 Aortic Valve LVOT Area 4.38 cm2 AoV Area Vmax 3.26 cm2 LVOT Vmax 1.13 m/s AoV Area/ BSA (Vmax) 1.49 cm2/m2 LVOT Mean Rufus. 0.75 m/s HARVINDER Mean Rufus. 2.90 cm2 LVOT Peak Grad 5.1 mmHg HARVINDER Mean Rufus. Index 1.33 cm2/m2 LVOT Mean Grad 2.6 mmHg LVOT VTI 0.233 m LVOT Diam s 2.35 cm AoV Vmax 1.51 m/s Velocity Ratio 0.75 AoV Mean Rufus. 1.14 m/s AoV Peak Grad 9.1 mmHg LVOT SV 102.08 mL AoV Mean Grad 5.6 mmHg AoV VTI 0.311 m AoV Area VTI 3.28 cm2 AoV Area/ BSA (VTI) 1.50 cm/m2 Mitral Valve MV DT 253 (160-240 msec) MV PHT 73 msec MV Area PHT 3.00 cm2 MV VTI 0.358 m MV Area VTI 2.86 (4.0-6.0 cm2) Pulmonary Valve PV Vmax 1.23 (0.5-1.5 m/s) RVOT Peak Gr. 4.44 mmHg PV Peak Grad 6.0 mmHg RVOT Mean Gr. 2.10 mmHg PV Mean Grad 3.0 mmHg RVOT VTI 0.202 m PV VTI 0.189 m RVOT Vmax 1.05 m/s Tricuspid Valve TR Peak Grad 35.1 mmHg TR Vmax 2.97 m/s RA Pressure 8.00 mmHg RVSP (TR) 43.0 mmHg
[2022-11-18 08:05] LABS: Absolute Lymphocyte Count 2.06 10^3/uL (1.2-3.4); Absolute Neutrophil Count 16.01 10^3/uL (1.2-6.7)
[2022-11-18 08:14] LABS: Diff Comment Diff Reviewed; RBC Morphology Normal
[2022-11-18 08:17] LABS: ALT 624 U/L (16-63); AST 274 U/L (15-37); Albumin 2.9 g/dL (3.4-5.0); Alkaline Phosphatase 108 U/L (46-116); Anion Gap 10.2 mmol/L (3-11); BUN 28 mg/dL (7-18); Bilirubin, Direct 0.1 mg/dL (0.0-0.2); Bilirubin, Total 0.3 mg/dL (0.2-1.0); CO2 27.8 mmol/L (21.0-32.0); CREATININE 0.9 mg/dL (0.70-1.30); Calcium 9.4 mg/dL (8.5-10.1); Chloride 104 mmol/L (98-107); Creatine Kinase 756 U/L (39-308); Estimated GFR 98.38 (mL/min/1.73m2); Glucose 98 mg/dL (74-106); Potassium 3.7 mmol/L (3.5-5.1); Sodium 142 mmol/L (136-145); Total Protein 7.4 g/dL (6.4-8.2)
[2022-11-18 08:35] LABS: Procalcitonin 0.7 ng/mL
[2022-11-18] MEDS: Benzonatate 200 MG CAP PO ×3 (08:37→19:11)
[2022-11-18] MEDS: guaiFENesin 600 MG TABCR PO ×2 (08:37→19:11)
[2022-11-18] MEDS: Lisinopril 20 MG TAB PO (08:37)
[2022-11-18] MEDS: Metoprolol CR 25 MG TABCR PO (08:38)
[2022-11-18] MEDS: Pantoprazole 20 MG TABCR PO (08:38)
[2022-11-18] MEDS: Potassium Citrate 1080 MG TABCR PO (08:38)
[2022-11-18] MEDS: Tamsulosin 0.4 MG CAPCR PO (08:39)
[2022-11-18] MEDS: predniSONE 20 MG TAB 60 MG PO (08:39)
[2022-11-18] MEDS: Normal Saline Flush 10 ML SYR IVP ×3 (08:45→19:11)
[2022-11-18] MEDS: Refresh PLUS Eye Drops 0.4ml OP (08:51)
--- NOTE | 2022-11-18 09:41 | INITIAL_ITS ---
- If Service Date Differs Date of service: 11/18/22 Time of Service: 09:41 Care Management Initial Assess REASON FOR HOSPITALIZATION:: Sepsis PAST MEDICAL HISTORY/PAST SURGICAL HISTORY:: All Active Problems (Updated 11/16/22 @ 18:16 by Liliana Carroll MD). Rhabdomyolysis (Acute). Transaminitis (Acute). Discharge planning issues (Acute). DVT prophylaxis (Acute). Asthma exacerbation (Acute). Bilateral lower extremity edema (Acute). Acute respiratory failure with hypoxia (Acute). Sepsis (Acute). Community acquired pneumonia (Acute). Transaminitis (Acute). Hypoxemia (Acute). Status post cataract extraction and insertion of intraocular lens of right eye (Chronic 02/07/19). High myopia, right eye (Chronic). Epiretinal membrane (ERM) of right eye (Chronic). Status post cataract extraction and insertion of intraocular lens of left eye (Chronic 01/24/19). High myopia, left eye (Chronic). Amblyopia of right eye (Chronic). Epiretinal membrane (ERM) of left eye (Chronic). Nuclear sclerotic cataract of left eye (Acute). Chronic prostat itis/chronic pelvic pain syndrome (Acute 10/19/17). Hemothorax on right (Acute 09/11/14). Osteoarthritis (Chronic). Asthma (Chronic). Obstructive sleep apnea (Chronic). Medical History (Updated 11/16/22 @ 18:16 by Liliana Carroll MD). Asthma. Cortical cataract of left eye. Cortical cataract of right eye. DJD (degenerative joint disease). Hemothorax on right. Hypertension. Nuclear sclerotic cataract of right eye. Obesity. Rib fracture. Surgical History (Updated 11/16/22 @ 17:34 by Liliana Carroll MD). H/O chest tube placement. H/O umbilical hernia repair PREVIOUS FUNCTIONAL STATUS/SOCIAL/FAMILY SUPPORTS:: Pradeep lives in a raised ranch style single family home in [place] with his Katya. They have 4 children; two children live at home and 2 are adults living on their own. 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 He does not use any assisteive devics for ambulation and does not receive any community services. Pradeep is indepent at baseline and performs all of his own ADLs. CURRENT FUNCTIONAL STATUS:: Pradeep was sitting up in a chair when CM met with him. He was pleasant in manner and agreeable to conversation. Pradeep stated that he is feeling much better. His oxygen needs have decreased from 3L to 1.5L/min. His WBC remains elevated at 20.79 but he is afebrile and his heartrate is WNL. Pradeep denied the need for any additional services at discharge. ADVANCE DIRECTIVES:: none on file Has patient been provided with info about the portal/API?: Yes Did the patient sign up for the portal?: Yes (previously) CODE STATUS:: Full Code INSURANCE COVERAGE / FINANCIAL ISSUES:: Medicaid CURRENT HOME/COMMUNITY SERVICES/EQUIPMENT:: none PRIMARY CARE PHYSICIAN:: Janine Hilliard POTENTIAL DISCHARGE NEEDS:: Follow up appointments and plan of care PATIENT/FAMILY EDUCATION NEEDS:: Review of discharge instructions, activity, limitations, follow up plan, Ask Me Three discussion TRANSPORTATION:: via private vehicle with family PLAN:: Pradeep will likely be discharged home with no new services. He will follow up with his community providers and plan of care and transport with family. CM will continue to support rPadeep and his discharge concerns.
[2022-11-18 11:13] LABS: Hepatitis A Antibody IgM Negative (Negative); Hepatitis B Core Antibody Negative (Negative); Hepatitis B surface Ag Negative (Negative); Hepatitis C Ab w Rflx HCV PCR Negative (Negative)
--- NOTE | 2022-11-18 15:00 | W.PM.PROGNOT ---
Date of Service Date of service: 11/18/22 Time of Service: 15:00 Assessment and Plan Assessment and plan (1) Sepsis: Status: Acute Assessment and plan: Due to CAP (which appears to be secondary to a viral URI), present on admission. Blood cultures NGTD. Sputum C&S: normal deandre Urine for Legionella and Strep antigens negative. Sputum mycoplasma PCR pending Continue empiric ceftriaxone and doxycycline. Encourage pulmonary toilet. Lactate better (2) Community acquired pneumonia: Status: Acute Assessment and plan: As above (3) Asthma exacerbation: Status: Acute Assessment and plan: As above (4) Acute respiratory failure with hypoxia: Status: Acute Assessment and plan: As above Wean o2 as tolerated. D/c IVF and diurese. (5) Transaminitis: Status: Acute Assessment and plan: Suspected to be due to mild rhabdomyolysis; however, will also obtain US abdomen. Hepatitis studies negative. CT w/ mild hepatic steatosis. MIld passive congestion of the liver could be, and he does have SOHEILA so pulmonary hypertension with hepatic reflux is possible. Does have evidence of pulmonary hypertension with RVSP of 43 mmHg on echo. (6) Bilateral lower extremity edema: Status: Acute Assessment and plan: IVF d/c'ed. Will diurese. Echo w/ LVEF of 55-60%, nml wall motion, RVSP of 43 mmHg. Venous dopplers negative for DVT. Diurese and monitor. (7) Rhabdomyolysis: Status: Resolved Assessment and plan: D/c IVF. Hold statin. Likely responsible for LFT elevation. (8) Obstructive sleep apnea: Status: Chronic Assessment and plan: Continue CPAP QHS (9) DVT prophylaxis: Status: Acute Assessment and plan: SC enoxaparin (10) Discharge planning issues: Status: Acute Assessment and plan: Full code Continues to require hospitalization. Subjective Subjective Interval history since last seen: Mr Elkins feels better. He states his cough is more rare and less productive; sputum is less yellow. He feels stronger, more like himself. He is on 1.5 L of O2. Denies dizziness, chest pain, shortness of breath on O2, nausea, abdominal pain. Exam Narrative Exam Narrative: General: Pleasant middle-aged male who is sitting up in a chair, A&Ox3, not dyspenic or tachypneic while on 3L of O2, looks significantly better HEENT: EOMI, MMM Cardiovascular: RRR, no m/r/g Lungs: rales BLL, improved Gastrointestinal: soft, obese, nontender Extremities: +2 BLE edema, symmetric, no c/c Objective Last Vital Signs Temp 36.7 C 11/18/22 11:09 Pulse 85 11/18/22 11:57 Resp 24 11/18/22 11:57 BP 141/80 H 11/18/22 11:09 Pulse Ox 92 11/18/22 12:32 Laboratory Results - last 24 hr 11/16/22 11/16/22 11/18/22 04:55 05:13 07:08 WBC RBC Hgb Hct MCV MCH MCHC RDW Plt Count MPV Immature Gran % Neutrophils % Lymphocytes % Monocytes % Eosinophils % Basophils % Nucleated RBC % Absolute Neutrophils Absolute Lymphocytes Absolute Monocytes Absolute Eosinophils Absolute Basophils RBC Morphology Sodium 142 Potassium 3.7 Chloride 104 Carbon Dioxide 27.8 Anion Gap 10.2 BUN 28 H Creatinine 0.9 Est GFR (CKD-EPI 2020) 98.38 Glucose 98 Calcium 9.4 Magnesium 2.0 Total Bilirubin 0.3 Conjugated Bilirubin 0.1 AST 274 H ALT 624 H Alkaline Phosphatase 108 Creatine Kinase 756 H Total Protein 7.4 Albumin 2.9 L Procalcitonin Hepatitis A IgM Ab Negative Hep Bs Antigen Negative Hep B Core Total Ab Negative Hepatitis C Antibody Negative Urine Legionella Ag Negative Add-On Test Request 11/18/22 11/18/22 11/18/22 07:08 07:08 07:08 WBC 20.79 H RBC 4.62 Hgb 12.8 L Hct 39.4 L MCV 85 MCH 27.7 MCHC 32.5 RDW 14.8 H Plt Count 304 MPV 11.1 H Immature Gran % 4.5 Neutrophils % 77.0 Lymphocytes % 9.9 Monocytes % 7.9 Eosinophils % 0.0 Basophils % 0.7 Nucleated RBC % 0.0 Absolute Neutrophils 16.01 H Absolute Lymphocytes 2.06 Absolute Monocytes 1.64 H Absolute Eosinophils 0.00 Absolute Basophils 0.15 RBC Morphology Normal Sodium Cancelled Potassium Cancelled Chloride Cancelled Carbon Dioxide Cancelled Anion Gap Cancelled BUN Cancelled Creatinine Cancelled Est GFR (CKD-EPI 2020) Cancelled Glucose Cancelled Calcium Cancelled Magnesium Total Bilirubin Conjugated Bilirubin AST ALT Alkaline Phosphatase Creatine Kinase Total Protein Albumin Procalcitonin Hepatitis A IgM Ab Hep Bs Antigen Hep B Core Total Ab Hepatitis C Antibody Urine Legionella Ag Add-On Test Request DONE 11/18/22 11/18/22 07:08 07:08 WBC RBC Hgb Hct MCV MCH MCHC RDW Plt Count MPV Immature Gran % Neutrophils % Lymphocytes % Monocytes % Eosinophils % Basophils % Nucleated RBC % Absolute Neutrophils Absolute Lymphocytes Absolute Monocytes Absolute Eosinophils Absolute Basophils RBC Morphology Sodium Potassium Chloride Carbon Dioxide Anion Gap BUN Creatinine Est GFR (CKD-EPI 2020) Glucose Calcium Magnesium Total Bilirubin Conjugated Bilirubin AST ALT Alkaline Phosphatase Creatine Kinase Cancelled Total Protein Albumin Procalcitonin 0.7 Hepatitis A IgM Ab Hep Bs Antigen Hep B Core Total Ab Hepatitis C Antibody Urine Legionella Ag Add-On Test Request
[2022-11-18] MEDS: Furosemide 20 MG/2 ML VIAL IVP (16:01)
[2022-11-19] VITALS (8 sets, daily range): BP systolic 132–148; BP diastolic 73–85; PULSE 79–110; RESP 4–22; TEMP 36.2–37.1; O2SAT 86–94
--- NOTE | 2022-11-19 | DI.US_ITS ---
Exam(s) US ABDOMEN LIMITED EXAM: US ABDOMEN LIMITED CLINICAL HISTORY: transaminitis, RUQ ltd. TECHNIQUE: Ultrasound abdomen performed using standard protocol. COMPARISON: US RENAL ULTRASOUND(P) from 10/08/[address] CHEST PE ABD PELVIS W from 11/16/2022 FINDINGS: PANCREAS: Normal where visualized. LIVER: There is diffuse increased echogenicity of the liver consistent with fatty infiltration. Hepa topedal flow in the Portal Vein. The liver measures in 19.7 cm length. GALLBLADDER: No evidence of cholelithiasis. No evidence of wall thickening. No pericholecystic fluid identified. BILIARY SYSTEM: Common bile duct measures < 7 mm. No intrahepatic biliary ductal dilation. CAO'S SIGN: Negative. RIGHT KIDNEY: Kidney is normal in size. No evidence of renal calculi. No evidence of hydronephrosis. No renal mass or cyst identified. ASCITES: None seen. IMPRESSION: There is hepatomegaly and hepatic steatosis. DATA REPOSITORY:
[2022-11-19] MEDS: cefTRIAXone 2 GM/50 ML BAG IVPB (06:18)
[2022-11-19] MEDS: DOXYCYCLINE 100 MG in Normal Saline 100 ML IVPB ×2 (06:18→17:38)
[2022-11-19 07:12] LABS: Abs Immature Grans 1.33 10^3/uL (0.0-0.06); HCT 38.9 % (40.0-50.0); MCH 28.1 pg (27.0-33.0); MCHC 33.4 % (32.0-36.0); MCV 84 fL (80-95); MPV 11.1 fL (8.0-11.0); Platelet Count 302 10^3/uL (130-400); RBC 4.63 10^6/uL (4.36-5.78); RDW 14.8 % (11.8-14.1); RDW-SD 45.6 fL; WBC 17.83 10^3/uL (4.4-10.8)
[2022-11-19 07:46] LABS: Anion Gap 7.2 mmol/L (3-11); BUN 19 mg/dL (7-18); CO2 30.8 mmol/L (21.0-32.0); CREATININE 0.8 mg/dL (0.70-1.30); Chloride 102 mmol/L (98-107); Creatine Kinase 523 U/L (39-308); Estimated GFR 101.95 (mL/min/1.73m2); Glucose 87 mg/dL (74-106); Magnesium 1.9 mg/dL (1.8-2.4); Potassium 3.5 mmol/L (3.5-5.1); Sodium 140 mmol/L (136-145)
[2022-11-19] MEDS: Budesonide/Formoterol 160/4.5 6 GM 60 PUFF INH IH ×2 (07:53→19:51)
[2022-11-19 08:09] LABS: Absolute Neutrophil Count 13.73 10^3/uL (1.2-6.7); Bands % 5
[2022-11-19 08:10] LABS: Absolute Eosinophil Count 0.18 10^3/uL (0.0-0.7); Absolute Lymphocyte Count 1.96 10^3/uL (1.2-3.4); Absolute Monocyte Count 1.25 10^3/uL (0.1-0.8); Diff Comment Manual Differential; Metamyelocytes % 2; Myelocytes % 2; RBC Morphology Normal
--- NOTE | 2022-11-19 08:34 | PDOC.CMPRO ---
- If Service Date Differs Date of service: 11/19/22 Time of Service: 08:34 Care Management Progress Note S/O:Pradeep was sitting up in a chair when CM met with him. He appeared to be in good spirits and engaged easily with CM. Pradeep stated that he is feeling much better and, if his oxygen levels are back to normal, hopes to be able to go home later. RT did an exercise oximetry test on Pradeep this afternoon and found that he requires 1L/min of oxygen with exercise. The provider plans to have him remain hospitalized until tomorrow. Additionally, Pradeep's LFTs remain elevated and an abdominal ultrasound was done which showed hepatomegaly and hepatic steatosis. A: Pradeep is a 57 year old man admitted on 11/16/22 with respiratory failure P:Pradeep will likely be discharged home with no new services. He will follow up with his community providers and plan of care and transport with family. CM will continue to support Pradeep and his discharge concerns.
[2022-11-19] MEDS: predniSONE 20 MG TAB 60 MG PO (09:51)
[2022-11-19] MEDS: Potassium Citrate 1080 MG TABCR PO (09:52)
[2022-11-19] MEDS: Lisinopril 20 MG TAB PO (09:52)
[2022-11-19] MEDS: guaiFENesin 600 MG TABCR PO ×2 (09:52→19:50)
[2022-11-19] MEDS: Benzonatate 200 MG CAP PO ×3 (09:53→19:50)
[2022-11-19] MEDS: Tamsulosin 0.4 MG CAPCR PO (09:53)
[2022-11-19] MEDS: Pantoprazole 20 MG TABCR PO (09:53)
[2022-11-19] MEDS: Metoprolol CR 25 MG TABCR PO (09:53)
[2022-11-19] MEDS: Furosemide 20 MG/2 ML VIAL IVP ×2 (09:54→15:38)
[2022-11-19] MEDS: Albuterol/Ipratropium 3 ML UPD VIAL UPD ×2 (11:53→19:34)
[2022-11-19] MEDS: Normal Saline Flush 10 ML SYR IVP ×2 (15:39→19:51)
[2022-11-19 15:50] LABS: Streptococcus Pneumoniae Ag, U Negative (Negative)
--- NOTE | 2022-11-19 15:54 | PHA.REVIEW2 ---
Pharmacy Admission Review - Admission Clinical Review (Last Reviewed 11/16/22 @ 04:56 by Jw Warner DO) Transaminitis (Acute) Discharge planning issues (Acute) DVT prophylaxis (Acute) Asthma exacerbation (Acute) Bilateral lower extremity edema (Acute) Acute respiratory failure with hypoxia (Acute) Sepsis (Acute) Community acquired pneumonia (Acute) Transaminitis (Acute) Hypoxemia (Acute) hydromorphone Allergy (Unknown, Unverified 09/09/22 14:28) itching hydrocodone [Hydrocodone] Allergy (Unverified 09/09/22 14:28) ITCHY Resuscitation Status Full Code Height 5 ft 2 in Weight 126.6 kg - Renal Dosing Renal Dosing: BUN 19 mg/dL (7-18) H 11/19/22 06:20 Creatinine 0.8 mg/dL (0.70-1.30) 11/19/22 06:20 Medications needing adjustments: Reviewed List of meds needing interventions: eCrCl 117 ml/min - Anticoagulation Anticoagulation: Hgb 13.0 g/dL (13.5-17.5) L 11/19/22 06:20 Hct 38.9 % (40.0-50.0) L 11/19/22 06:20 Plt Count 302 10^3/uL (130-400) 11/19/22 06:20 INR 1.0 (0.9-1.1) 11/16/22 04:55 Creatinine 0.8 mg/dL (0.70-1.30) 11/19/22 06:20 DVT Prophylaxis: Reviewed (Patient has a history of von willebrand disease) - Opiate Usage Evaluate Pain Scale/Pains Meds: N/A - Relevant Labs Sodium 140 mmol/L (136-145) 11/19/22 06:20 Potassium 3.5 mmol/L (3.5-5.1) 11/19/22 06:20 Chloride 102 mmol/L (98-107) 11/19/22 06:20 Magnesium 1.9 mg/dL (1.8-2.4) 11/19/22 06:20 Electrolytes, C-Reactive P, ESR: Reviewed - DM Control DM Control: Glucose 87 mg/dL (74-106) 11/19/22 06:20 DM Control: N/A - Cardiac Review Cardiac Review: Troponin I < 50 ng/L (<or=60) 11/16/22 04:55 NT-Pro-B Natriuret Pep 216 pg/mL (<300) 11/16/22 04:55 BP, HR, EF%: Reviewed - Qtc Review QTc: Reviewed If Elevated, List meds needing intervention: QTc 425 on admission - IV to PO Switch IV Medications: Reviewed - Home Meds Home Med List reviewed: Reviewed Relevent Home Meds Not ordered & why?: not ordered: atorvastatin, HCTZ - Current meds Current Medication Order Review: Reviewed (doxy + ceftriaxone IV for CAP)
--- NOTE | 2022-11-19 20:18 | W.PM.PROGNOT ---
Date of Service Date of service: 11/19/22 Time of Service: 16:45 Assessment and Plan Assessment and plan (1) Sepsis: Status: Acute Assessment and plan: Due to CAP (which appears to be secondary to a viral URI), present on admission. Blood cultures NGTD. Sputum C&S: normal deandre Urine for Legionella and Strep antigens negative. Sputum mycoplasma PCR pending Continue empiric ceftriaxone and doxycycline. Encourage pulmonary toilet. Lactate better (2) Community acquired pneumonia: Status: Acute Assessment and plan: As above (3) Asthma exacerbation: Status: Acute Assessment and plan: As above (4) Acute respiratory failure with hypoxia: Status: Acute Assessment and plan: As above Wean o2 as tolerated. Now only requiring O2 on ambulation. Continue diuresis. (5) Transaminitis: Status: Acute Assessment and plan: Suspected to be due to mild rhabdomyolysis; Hepatitis studies negative. CT w/ mild hepatic steatosis. US abdomen with hepatomegaly and hepatic steatosis also. MIld passive congestion of the liver could be, and he does have SOHEILA so pulmonary hypertension with hepatic reflux is possible. Does have evidence of pulmonary hypertension with RVSP of 43 mmHg on echo. (6) Bilateral lower extremity edema: Status: Acute Assessment and plan: IVF d/c'ed. Will diurese. Echo w/ LVEF of 55-60%, nml wall motion, RVSP of 43 mmHg. Venous dopplers negative for DVT. Diurese and monitor. (7) Rhabdomyolysis: Status: Resolved Assessment and plan: Hold statin. Likely responsible for LFT elevation. No longer on IVF. (8) Obstructive sleep apnea: Status: Chronic Assessment and plan: Continue CPAP QHS (9) DVT prophylaxis: Status: Acute Assessment and plan: SC enoxaparin (10) Discharge planning issues: Status: Acute Assessment and plan: Full code Continues to require hospitalization. Anticipate discharge home tomorrow; the patient does not think he will agree to wear oxygen on discharge. Subjective Subjective Interval history since last seen: Feels better today. Not requiring O2 at rest but does need it on ambulation (desaturates to 86% on RA). Denies dizziness, chest pain; both shortness of breath and cough are better. Denies n/v. Exam Narrative Exam Narrative: General: Pleasant middle-aged male who is sitting up at the end of the bed, A&Ox3, on RA, no dyspnea/tachypnea HEENT: EOMI, MMM Cardiovascular: RRR, no m/r/g Lungs: rales BLL, improved Gastrointestinal: soft, obese, nontender Extremities: +2 BLE edema, unchanged, symmetric, no c/c Objective Last Vital Signs Temp 36.4 C L 11/19/22 19:31 Pulse 83 11/19/22 19:31 Resp 19 11/19/22 19:31 BP 134/85 11/19/22 19:31 Pulse Ox 91 L 11/19/22 19:31 Laboratory Results - last 24 hr 11/16/22 11/19/22 11/19/22 15:55 06:20 06:20 WBC 17.83 H RBC 4.63 Hgb 13.0 L Hct 38.9 L MCV 84 MCH 28.1 MCHC 33.4 RDW 14.8 H Plt Count 302 MPV 11.1 H Immature Gran % See Differential Neutrophils % 72.0 Band Neutrophils % 5 Lymphocytes % 11.0 Monocytes % 7.0 Eosinophils % 1.0 Basophils % 0.0 Metamyelocytes % 2 Myelocytes % 2 Nucleated RBC % 1.0 H Absolute Neutrophils 13.73 H Absolute Lymphocytes 1.96 Absolute Monocytes 1.25 H Absolute Eosinophils 0.18 Absolute Basophils 0.00 RBC Morphology Normal Sodium 140 Potassium 3.5 Chloride 102 Carbon Dioxide 30.8 Anion Gap 7.2 BUN 19 H Creatinine 0.8 Est GFR (CKD-EPI 2020) 101.95 Glucose 87 Calcium 9.0 Magnesium 1.9 Creatine Kinase 523 H Ur Strep pneumoniae Ag Negative
[2022-11-20 00:08] VITALS: BP 139/77; PULSE 93; RESP 14; TEMP 36.3; O2SAT 92
[2022-11-20 04:01] VITALS: BP 112/79; PULSE 69; RESP 16; TEMP 36.4; O2SAT 93
[2022-11-20] MEDS: cefTRIAXone 2 GM/50 ML BAG IVPB (05:03)
[2022-11-20] MEDS: Normal Saline Flush 10 ML SYR IVP ×2 (05:03→09:34)
[2022-11-20] MEDS: DOXYCYCLINE 100 MG in Normal Saline 100 ML IVPB (05:58)
[2022-11-20 07:08] VITALS: BP 136/88; PULSE 78; RESP 20; TEMP 36.5; O2SAT 91
[2022-11-20] MEDS: Budesonide/Formoterol 160/4.5 6 GM 60 PUFF INH IH (07:42)
[2022-11-20] MEDS: Pantoprazole 20 MG TABCR PO (08:07)
[2022-11-20] MEDS: Metoprolol CR 25 MG TABCR PO (08:07)
[2022-11-20] MEDS: guaiFENesin 600 MG TABCR PO (08:07)
[2022-11-20] MEDS: Potassium Citrate 1080 MG TABCR PO (08:07)
[2022-11-20] MEDS: Benzonatate 200 MG CAP PO (08:07)
[2022-11-20] MEDS: predniSONE 20 MG TAB 60 MG PO (08:07)
[2022-11-20] MEDS: Lisinopril 20 MG TAB PO (08:07)
[2022-11-20] MEDS: Tamsulosin 0.4 MG CAPCR PO (08:07)
[2022-11-20 08:54] VITALS: PULSE 101; PULSE 82; PULSE 84; RESP 18; RESP 22; O2SAT 88; O2SAT 94; O2SAT 95
[2022-11-20] MEDS: Furosemide 20 MG/2 ML VIAL IVP (09:35)
[2022-11-20 11:02] VITALS: BP 138/81; PULSE 81; RESP 20; TEMP 36.4; O2SAT 91
--- NOTE | 2022-11-20 14:26 | DSE_ITS ---
Date of service: 11/20/22 Time of Service: 14:26 DS: Diagnosis Discharge Diagnosis (1) Sepsis: Status: Resolved (2) Community acquired pneumonia: Status: Acute Asessment and Plan: patient treated w/ Ceftriaxone and doxycycline iv while hospitalized but dc home on course of Augmentin and Azithromycin. Sputum grew NOF; blood cultures no growth; urine legionella and strep antigen were negative and sputum mycoplasma PCR negative. repeat CXR in 3 weeks. (3) Asthma exacerbation: Status: Resolved (4) Acute respiratory failure with hypoxia: Status: Resolved (5) Transaminitis: Status: Resolved (6) Bilateral lower extremity edema: Status: Resolved (7) Rhabdomyolysis: Status: Resolved (8) Obstructive sleep apnea: Status: Chronic Asessment and Plan: continue use of CPAP (9) Dilated aortic root: Status: Acute Asessment and Plan: Dilated ascending aorta measuring 4.14 cm. Recommend repeat echocardiogram and/or CTA chest in one year. Discharge Plan Disposition Patient Disposition: Home Condition: Good Discharge Details Reason For Visit: Acute Hypoxic Respiratory Failure, CAP, Asthma Exc Admit Date/Time: 11/16/22 08:44 Admit Provider: Liliana Carroll Attending Provider: Liliana Carroll Primary Care Provider: Janine Hilliard V Hospital Course Hospital Course: Mr Elkins is a 57 year old male with PMHx of intermittent asthma, hypertension, hyperlipidemia, Von Willebrand's disease, SOHEILA on CPAP, obesity with BMI of 50.3 kg/m2, who presented to [facility] ER with his , both with respiratory symptoms, having had exposures to both confirmed RSV and influenza. His shortness of breath and cough have been going on for about 10 days. Cough is productive of yellow sputum.? He has also been having intermittent nonexertional CP, fevers, chills, sweats, runny nose, sore throat.? He has also noted more leg swelling bilaterally and that laying down makes it harder to breathe. He did call EMS last night who gave him an albuterol nebulizer treatment, but came to the ED on his own. Here he was tachypneic and tachycardic. He required 2 L of O2 to saturate 92%. He tested negative for COVID-19, influenza, and RSV in the ED. He was initiated on nebulizer tx and systemic steroids, as he sounded rhonchorous in the ED. His CXR showed interstitial lung markings, patchy groundglass opacities in perihilar regions and lung bases. a CTA of the chest ruled out a PE, but showed opacities in RML, CLAUDIA, and LLL, c/w pneumonia. There was a 2 cm nodule in CLAUDIA. There was mediastinal and hilar lymphadenopathy. The patient was started on empiric doxycycline, and ceftriaxone. Hospitalist admission was requested. Blood and sputum cultures were obtained and blood cultures came back negative and sputum grew NOF. Urine legionella and Strep antigen were negative, sputum mycoplasma PCR was negative. Patient was treated w/ nebulized bronchodilators, iv fluids and iv antibiotics including doxycycline and Rocephin and put on supplemental oxygen at 3 lpm. CK peaked at 1209 and came back to 523 prior to discharge. IV fluids were stopped but he had developed some hypervolemia and required temporary iv diuretics to correct the overhydration. He was eventually weaned off oxygen and discharged home on oral antibiotics including 5 more days of azithromycin and augmentin and 5 days of prednisone. he is to have a follow up CXR in [address] of his chest revealed a mildly dilated ascending aorta w/out dissection. Echocardiogram demonstrated similar findings as well as mild pulmonary hypertension w/ normal LV and RV function w/ no valvular disease. It is recommended that a follow up echo or CTA chest be done in one year for follow up of his dilated ascending aorta. Home Meds and New Rx's Prescriptions: New amoxicillin-pot clavulanate [Augmentin XR] 1,000-62.5 mg tablet extended release 12 hr 1 tab PO BID Qty: 10 0RF prednisone 20 mg tablet 40 mg PO DAILY 5 Days Qty: 10 0RF azithromycin [Zithromax Z-Gio] 250 mg tablet See Rx Instructions .ROUTE .COMPLEX Qty: 6 0RF Rx Instructions: For 250 mg dose pack: take 500 mg today (day 1), then 250 mg for 4 days (days 2-5) Continued tamsulosin [Flomax] 0.4 mg capsule 0.4 mg PO DAILY Qty: 90 4RF atorvastatin 40 MG tablet 80 mg PO DAILY potassium citrate 10 MEQ tablet extended release 40 meq PO DAILY hydrochlorothiazide 25 MG tablet 25 mg PO DAILY budesonide-formoterol [Symbicort] 10.2 GM HFA aerosol inhaler 2 puff Inhalation BID lisinopril 10 mg tablet 20 mg PO DAILY cyclobenzaprine 10 MG tablet 10 mg PO TID PRN PRN albuterol sulfate 2.5 mg /3 mL (0.083 %) solution for nebulization 3 ml PRN PRN Label Comments: Inhale 1 ampul using nebulizer every four to six hours as needed metoprolol succinate 25 mg tablet extended release 24 hr 25 mg PO DAILY Label Comments: TAKE 1 TABLET BY MOUTH AT BEDTIME Discharge Instructions Instructions: Asthma (GEN), Hypoxia (GEN) Additional Instructions: finish all of your prednisone and your antibiotics (augmentin and azithromycin); get follow up chest xray in 2 to 3 weeks. You have a mildly dilated aorta (the largest artery which comes off the heart) but you do not have a dissecting aneurysm. You should have a follow up echocardiogram and chest CT in 6 to 12 months. Stand Alone Forms: Nursing Discharge Form Referrals: Janine Hilliard MD [Primary Care Provider] - 12/02/22 1:30 pm Activity:: Activity as Tolerated Equipment/Supplies:: No Equipment Needed Diet:: Normal Diet Discharge Orders Discharge Orders: Discharge Order (Routine); Ordered 11/20/22 Ordered By: Bethel Scott Other Ambulatory Orders: XR chest complete multi view (Routine) Timeframe: 3 Weeks Facility: [facility] - Location: DIAGNOSTIC IMAGING DEPT Ordered By: Bethel Scott Discharge Data Discharge Date/Time-TO BE ENTERED AT DEPARTURE: 11/20/22 14:53 DS: Summary Summary Time spent discussing smoking cessation with patient: 3 to 10 minutes Time Spent with Patient providing and/or coordinating discharge services: Less than 30 minutes Specific discharge activities: Interview/exam of patient; review of discharge instructions, completion of prescriptions/discharge instructions; discussion w/ nursing and CM; documentation of hospital visit Status at Discharge Functional status at discharge: independent ambulation Overall status at discharge: patient is progressing back to baseline Mental Status: mental status grossly normal Speech and Movement: speech and movement normal Mood: congruent mood Affect: normal affect Exam Narrative Exam Narrative: Pradeep is dressed sitting up in his chair, alert and oriented per his place time circumstance no respiratory discomfort. Respirations nonlabored. Lungs are clear anteriorly posterior he has some fine rales at the right lung base no rhonchi no expiratory wheezing Heart is regular rate and rhythm Psych Mental Status: mental status grossly normal Speech and Movement: speech and movement normal Mood: congruent mood Affect: normal affect DS: Data Vitals/I&O Vitals and I&O: Vital Signs Temperature 36.4 C L 11/20/22 11:02 Temperature Source Tympanic 11/20/22 11:02 Pulse 81 11/20/22 11:02 Pulse Rhythm Regular 11/20/22 09:27 Pulse 108 H 11/16/22 08:10 Respiratory Rate 20 11/20/22 11:02 Respiratory Effort Non-Labored 11/20/22 09:27 Respiratory Depth Normal 11/20/22 09:27 Respiratory Pattern Normal 11/20/22 09:27 Blood Pressure 138/81 11/20/22 11:02 Blood Pressure Mean 75 11/16/22 07:58 Blood Pressure Position Sitting 11/16/22 04:38 Pulse Oximetry 91 L 11/20/22 11:02 Oxygen Delivery Method Room Air 11/20/22 11:02 Oxygen Flow Rate 0 11/20/22 11:02 Fraction of Inspired Oxygen (FIO2) 36 11/16/22 17:40 Pain Level 0 11/20/22 07:08 Intake & Output 11/19/22 11/20/22 11/20/22 23:59 11:59 23:59 Intake Total 900 / 1410 750 / 990 240 / 990 Output Total 900 / 1400 250 / 250 Balance 0 / 10 500 / 740 240 / 740 Weight 125.4 kg Intake: IV 120 / 270 170 / 170 Oral 780 / 1140 580 / 820 240 / 820 Output: Urine 900 / 1400 250 / 250 Other: Urine Color Pale Yellow Urine Appearance Clear Clear Urine Odor Normal Comment pt stated he voided independently pT voides independently Stool Characteristics Soft Formed Brown Voiding Methods Toilet Toilet Data Completed and Pending Labs on day of discharge: Labs from last 24 hours 11/16/22 15:55 Ur Strep pneumoniae Ag Negative Preliminary micro results at discharge 11/16/22 09:00 Blood Culture - Preliminary Blood NO GROWTH 96 HOURS 11/16/22 09:13 Blood Culture - Preliminary Blood NO GROWTH 96 HOURS PFSH All Active Problems (Updated 11/21/22 @ 22:48 by Bethel Scott MD) Dilated aortic root (Acute) Mild ascending aorta dilatation (Acute) Community acquired pneumonia (Acute) Status post cataract extraction and insertion of intraocular lens of right eye (Chronic 02/07/19) High myopia, right eye (Chronic) Epiretinal membrane (ERM) of right eye (Chronic) Status post cataract extraction and insertion of intraocular lens of left eye (Chronic 01/24/19) High myopia, left eye (Chronic) Amblyopia of right eye (Chronic) Epiretinal membrane (ERM) of left eye (Chronic) Nuclear sclerotic cataract of left eye (Acute) Chronic prostatitis/chronic pelvic pain syndrome (Acute 10/19/17) Hemothorax on right (Acute 09/11/14) Osteoarthritis (Chronic) Asthma (Chronic) Obstructive sleep apnea (Chronic) Medical History Asthma Cortical cataract of left eye Cortical cataract of right eye DJD (degenerative joint disease) Hemothorax on right Hypertension Nuclear sclerotic cataract of right eye Obesity Rib fracture Surgical History H/O chest tube placement H/O umbilical hernia repair Family History Mother Heart disease Maternal Grandmother Hypertension Maternal Aunt No problems noted. Maternal Grandfather Hypertension Uncle Colon cancer Uncle Colon cancer Father Cancer unknown type Paternal Grandfather Cancer unknown type Social History Smoking/Tobacco Use Status: Never Smoking risk assessment performed?: Yes Alcohol Intake: never Drug use: Never Substance use type: does not use Do you feel safe at home: Yes Do you feel safe in your relationship?: Yes
--- NOTE | 2022-11-20 14:32 | PDOC.CMDIS ---
- If Service Date Differs Date of service: 11/20/22 Time of Service: 14:32 LACE Index Scoring Tool - Questions: Length of Stay (in days): 4 - 6 Acuity (Admit via E.D.?): Yes Comorbidities: Chronic Pulmonary Disease E.D. Visits: 1 - Answers: Total Score: 10 Risk of Readmission: High Risk Care Management Discharge Reason for Hospitalization: Sepsis Discharge Plan: Pradeep will be discharged home with no new services. He will follow up with his community providers and plan of care and transport with family. Patient/Family Education Needs: Review of discharge instructions, activity, limitations, follow up plan, Ask Me Three discussion
[2022-11-20 17:24] LABS: Mycoplasma Pneumoniae PCR Negative; Specimen source sputum
== END 2022-11-20 14:53 | disposition home or self-care (01) | DRG 871 ==
LOC: ER 09:09 → MS 09:50
PROVIDERS: Student in an Organized Health Care Education/Training Program; Admitting Provider Internal Medicine; Emergency Provider Physician Assistant; PCP Family Medicine; Visit Provider Internal Medicine
DX: A41.9 Sepsis, unspecified organism (principal); J18.9 Pneumonia, unspecified organism; J96.01 Acute respiratory failure with hypoxia; M62.82 Rhabdomyolysis; Z68.43 Body mass index [BMI] 50.0-59.9, adult; R74.01 Elevation of levels of liver transaminase levels; R60.0 Localized edema; G47.33 Obstructive sleep apnea (adult) (pediatric); E66.01 Morbid (severe) obesity due to excess calories
CPT/HCPCS: 36415; 71275; 74177; 80048; 80053; 80076; 82550; 82805; 84145; 86704; 86709; 86803; 87040; 87340; 87449; 87637; 93005; 94618; 94640; 96365; 96367; 96375; 99285; 71045; 76705; 83605; 83735; 83880; 84484; 85025; 85379; 85610; 85730; 87070; 87205; 87581; 87899; 93010; 93306; 93970; 94667; 94668; 99223; 99232; 99233; 99238; J1941; J2930; J3490; J7512; J7620

== ENCOUNTER 2022-12-02 17:58 | Outpatient (REF) | payer MEDICAID, SELFPAY ==
[2022-12-02 18:56] LABS: HCT 40.3 % (40.0-50.0); HGB 13.4 g/dL (13.5-17.5); MCH 28.5 pg (27.0-33.0); MCHC 33.3 % (32.0-36.0); MCV 86 fL (80-95); MPV 11.5 fL (8.0-11.0); Platelet Count 192 10^3/uL (130-400); RDW 16.2 % (11.8-14.1); RDW-SD 49.8 fL; WBC 8.09 10^3/uL (4.4-10.8)
[2022-12-02 19:36] LABS: ALT 77 U/L (16-63); AST 29 U/L (15-37); Albumin 3.4 g/dL (3.4-5.0); Alkaline Phosphatase 58 U/L (46-116); Anion Gap 5.5 mmol/L (3-11); BUN 15 mg/dL (7-18); Bilirubin, Total 0.4 mg/dL (0.2-1.0); CO2 30.5 mmol/L (21.0-32.0); CREATININE 0.7 mg/dL (0.70-1.30); Chloride 100 mmol/L (98-107); Estimated GFR 106.14 (mL/min/1.73m2); Glucose 108 mg/dL (74-106); Magnesium 1.9 mg/dL (1.8-2.4); Potassium 3.7 mmol/L (3.5-5.1); Sodium 136 mmol/L (136-145); Total Protein 7.2 g/dL (6.4-8.2); Triglyceride 507 mg/dL (<150)
[2022-12-02 20:03] LABS: LDL CHOLESTEROL 93 mg/dL (<100)
[2022-12-04 09:50] LABS: Creatine Kinase 253 U/L (39-308)
== END 2022-12-02 17:59 | disposition home or self-care (01) ==
LOC: NCHCN 17:58
PROVIDERS: PCP Family Medicine; Visit Provider Family Medicine
DX: I10 Essential (primary) hypertension (principal); R73.03 Prediabetes; K76.0 Fatty (change of) liver, not elsewhere classified; J45.41 Moderate persistent asthma with (acute) exacerbation; A41.9 Sepsis, unspecified organism
CPT/HCPCS: 80053; 82550; 83721; 85027; 83735; 84478

== ENCOUNTER 2023-02-13 17:12 | Emergency (ER) | payer MEDICAID, SELFPAY ==
[2023-02-13 17:15] VITALS: BP 136/80; PULSE 140; RESP 20; TEMP 36.9; O2SAT 94
--- NOTE | 2023-02-13 17:15 | RT.EKG_ITS ---
APPROVED REPORT Exam: Resting ECG Reason for Exam: tachycardia Patient Location: E HR:124 bpm ECG Measurements Heart Rate 124 AXIS GA [id number] P [id number] QRSd 85 QRS 2 QT 349 T 36 QTc 502 Conclusion Atrial fibrillation...V-rate 83-153, irreg A-activity Prolonged QT interval...QTc >500mS Atrial fibrillation at a rate of 124 bpm has replaced sinus tachycardia compared to prior dated Decem 2021. Prolonged QTc at 502 ms. Left axis deviation no signs of LVH based on voltage criteria. No T wave abnormalities. No acute injury pattern.
--- NOTE | 2023-02-13 17:28 | ED.GENADUL_ITS ---
Discharge Plan Disposition Patient Disposition: Home Discharge Details Clinical Impression: Atrial fibrillation with RVR Primary Care Provider: Janine Hilliard V ED Provider: Nathan Rosado Home Meds and New Rx's Prescriptions: New aspirin 81 mg capsule 81 mg PO DAILY Qty: 30 0RF Continued atorvastatin 40 MG tablet 80 mg PO DAILY potassium citrate 10 MEQ tablet extended release 40 meq PO DAILY tamsulosin 0.4 mg capsule See Rx Instructions .ROUTE .COMPLEX Qty: 90 4RF Dose Instruction: TAKE 1 CAPSULE BY MOUTH DAILY Rx Instructions: TAKE 1 CAPSULE BY MOUTH DAILY hydrochlorothiazide 25 MG tablet 25 mg PO DAILY budesonide-formoterol [Symbicort] 10.2 GM HFA aerosol inhaler 2 puff Inhalation BID lisinopril 10 mg tablet 20 mg PO DAILY cyclobenzaprine 10 MG tablet 10 mg PO TID PRN PRN albuterol sulfate 2.5 mg /3 mL (0.083 %) solution for nebulization 3 ml PRN PRN Patient Comments: Inhale 1 ampul using nebulizer every four to six hours as needed metoprolol succinate 25 mg tablet extended release 24 hr 25 mg PO DAILY Patient Comments: TAKE 1 TABLET BY MOUTH AT BEDTIME amoxicillin-pot clavulanate [Augmentin XR] 1,000-62.5 mg tablet extended release 12 hr 1 tab PO BID Qty: 10 0RF azithromycin [Zithromax Z-Gio] 250 mg tablet See Rx Instructions .ROUTE .COMPLEX Qty: 6 0RF Rx Instructions: For 250 mg dose pack: take 500 mg today (day 1), then 250 mg for 4 days (days 2-5) Discharge Instructions Instructions: A-fib (Atrial Fibrillation) (ED) Additional Instructions: Please read all of the information that accompanies these instructions. You were seen in the emergency department for your palpitations and shortness of breath. Your EKG showed that you were in atrial fibrillation but you returned to normal sinus rhythm. Please schedule an appointment with your primary care provider next week. Please return to the emergency department if develop shortness of breath chest pain or have palpitations that do not stop. We discussed whether or not to start a blood thinner. Please follow-up with your primary care provider to continue this conversation. For now please start 81 mg of aspirin per day until you are seen by your primary care provider. Discharge Data Discharge Date/Time-TO BE ENTERED AT DEPARTURE: 02/13/23 18:42 Medical Decision Making This is a 58-year-old male with a history of intermittent asthma, hypertension, hyperlipidemia, SOHEILA on CPAP and obesity now with atrial fibrillation with rapid ventricular response associated with shortness of breath. No chest pain to suggest ACS nor aortic dissection so we will defer troponin testing. Patient reports that he has had atrial fibrillation in the past but that he is not anticoagulated. Will rate control with metoprolol as patient is on 50 mg of metoprolol succinate daily. We will reach for IV metoprolol 5 mg and also treat patient with his home metoprolol succinate. No hypoxia to suggest DVT. Moving all 4 extremities spontaneously with no aphasia to suggest CVA. No obvious precipitant although echocardiogram was concerning for the possibility of pulmonary hypertension which certainly could increase the patient's risk for A- fib along with his SOHEILA. Given his prolonged QT on ECG will obtain a magnesium level and treat empirically with 2 g of magnesium. No signs of volume overload given no orthopnea nor lower extremity swelling so well defer proBNP at this point as I am not concerned for acute CHF. No cough no shortness of breath to suggest pneumonia so will defer x-ray. 6:30 PM Patient converted to normal sinus rhythm at a rate of 68 less than half an hour after metoprolol has been given. We discussed whether or not to initiate anticoagulation. Patient's [id number] 2 score was 1 secondary to his history of hypertension. Given that he converted shortly after metoprolol which has a significantly delayed onset compared to diltiazem I felt that it is most likely that the patient spontaneously converted. We will plan on having him continue his home dose of metoprolol. I have also ordered an outpatient Holter monitor for the patient as we did not have Holter monitors in the emergency department at the moment. I discussed with the patient and his Valsalva maneuvers that he can try at home including straining as if having a bowel movement, blowing through a straw, and having his legs lifted above his head while lying supine. I initiated the patient on 81 mg of aspirin daily for the next 30 days. We will proceed with an empiric trial of expectant outpatient management. Chronic conditions affecting the care of the patient: Hypertension SOHEILA History obtained from an outside historian: Patient's External record review: Prior records Diagnostic interpretations performed by me: [Per my independent interpretation EKG shows:] Atrial fibrillation at a rate of 124 bpm has replaced sinus tachycardia compared to prior dated October 2022. Prolonged QTc at 502 ms. Left axis deviation no signs of LVH based on voltage criteria. No T wave abnormalities. No acute injury pattern. Medications: Metoprolol Social determinants of health affecting disposition: N/A Management discussed with: N/A Treatment/interventions considered: Holter monitor unfortunately not available Response to therapies provided: Responded to metoprolol HPI General Date/Time Provider Initiated Documentation: 02/13/23 17:28 . HPI Narrative: This is a 58-year-old male with hypertension obesity and SOHEILA now with rapid heart rate. Patient reports that he began feeling shortness of breath with rapid heart rate around 4 PM this afternoon. His Fitbit monitor also notified him of an abnormal heart rate. His heart rates in triage were running between the 70s to the 140s. He has intermittently had episodes similar to this since October. He had a Holter monitor remotely but this did not show atrial fibrillation. He reported that he had atrial fibrillation while in the hospital last October in setting of pneumonia with heart rates into the 160s. He is due to take his home metoprolol succinate 50 mg later this evening. He denies nausea vomiting fevers chest pain lower extremity swelling and orthopnea. He denies routine tobacco, ethanol, and illicits. Related Data Home Medications Medication Instructions Recorded Confirmed budesonide-formoterol HFA 160 2 puff inhalation BID 03/14/13 11/16/22 mcg-4.5 mcg/actuation aerosol inhaler (Symbicort) hydrochlorothiazide 25 mg tablet 25 mg PO DAILY 03/14/13 11/16/22 cyclobenzaprine 10 mg tablet 10 mg PO TID PRN PRN 08/22/14 11/19/22 atorvastatin 40 mg tablet 80 mg PO DAILY 10/19/17 11/16/22 potassium citrate 10 mEq (1,080 40 meq PO DAILY 10/19/17 11/19/22 mg) tablet,extended release lisinopril 10 mg tablet 20 mg PO DAILY 09/09/22 11/16/22 albuterol sulfate 2.5 mg/3 mL 3 ml PRN PRN 11/16/22 11/16/22 (0.083 %) solution for nebulization metoprolol succinate 25 mg 25 mg PO DAILY 11/16/22 11/16/22 tablet,extended release 24 hr amoxicillin-potassium clavulanate 1 tab PO BID #10 tabs 11/20/22 1,000 mg-62.5 mg tablet,ext.rel 12hr (Augmentin XR) azithromycin 250 mg tablet See Rx Instructions PO .COMPLEX #6 11/20/22 (Zithromax Z-Gio) tabs tamsulosin 0.4 mg capsule See Rx Instructions .Route 12/12/22 .COMPLEX #90 caps aspirin 81 mg capsule 81 mg PO DAILY #30 caps 02/13/23 Previous Rx's Medication Instructions Recorded amoxicillin-potassium clavulanate 1 tab PO BID #10 tabs 11/20/22 1,000 mg-62.5 mg tablet,ext.rel 12hr (Augmentin XR) azithromycin 250 mg tablet See Rx Instructions PO .COMPLEX #6 11/20/22 (Zithromax Z-Gio) tabs tamsulosin 0.4 mg capsule See Rx Instructions .Route 12/12/22 .COMPLEX #90 caps aspirin 81 mg capsule 81 mg PO DAILY #30 caps 02/13/23 Allergies Allergy/AdvReac Type Severity Reaction Status Date / Time hydromorphone Allergy Unknown itching Unverified 09/09/22 14:28 hydrocodone [Hydrocodone] Allergy ITCHY Unverified 09/09/22 14:28 General Stated Complaint: Arrhythmia TRACIE: 3 PFSH All Active Problems (Updated 02/13/23 @ 18:27 by Nathan Rosado MD) Atrial fibrillation with RVR (Acute) Dilated aortic root (Acute) Mild ascending aorta dilatation (Acute) Community acquired pneumonia (Acute) Status post cataract extraction and insertion of intraocular lens of right eye (Chronic 02/07/19) High myopia, right eye (Chronic) Epiretinal membrane (ERM) of right eye (Chronic) Status post cataract extraction and insertion of intraocular lens of left eye (Chronic 01/24/19) High myopia, left eye (Chronic) Amblyopia of right eye (Chronic) Epiretinal membrane (ERM) of left eye (Chronic) Nuclear sclerotic cataract of left eye (Acute) Chronic prostatitis/chronic pelvic pain syndrome (Acute 10/19/17) Hemothorax on right (Acute 09/11/14) Osteoarthritis (Chronic) Asthma (Chronic) Obstructive sleep apnea (Chronic) Medical History Asthma Cortical cataract of left eye Cortical cataract of right eye DJD (degenerative joint disease) Hemothorax on right Hypertension Nuclear sclerotic cataract of right eye Obesity Rib fracture Surgical History H/O chest tube placement H/O umbilical hernia repair Family History Mother Heart disease Maternal Grandmother Hypertension Maternal Aunt No problems noted. Maternal Grandfather Hypertension Uncle Colon cancer Uncle Colon cancer Father Cancer unknown type Paternal Grandfather Cancer unknown type Social History Smoking/Tobacco Use Status: Never Smoking risk assessment performed?: Yes Alcohol Intake: never Drug use: Never Substance use type: does not use Do you feel safe at home: Yes Do you feel safe in your relationship?: Yes Exam Narrative Exam Narrative: General: Well-appearing in no acute distress speaking in complete sentences. Head: Normocephalic, atraumatic Ear, nose, mouth, throat: Grossly normal inspection. Normal voice, handling sec retions normally. Neck: Trachea midline. Cardiovascular: Well-perfused distal extremities. Rapid irregular irregular rate. Difficult to assess JVD. Respiratory: Nonlabored respiration.Clear lungsBilaterally. Gastrointestinal: Nondistended abdomen. Musculoskeletal: No significant lower extremity pitting edema. Moving all 4 extremities spontaneously. Skin: Normal for age and race, grossly normal temperature and turgor. No acute rash. Neurologic: Alert and appropriate, no apparent acute deficits. Psychiatric: Mood and manner are appropriate. Grooming and personal hygiene are appropriate. Course Vital Signs Vital signs: Vital Signs Temperature 36.9 C 02/13/23 17:15 Pulse 140 H 02/13/23 17:15 Respiratory Rate 20 02/13/23 17:15 Blood Pressure 136/80 02/13/23 17:15 Pulse Oximetry 94 02/13/23 17:15 Temperature 36.9 C 02/13/23 17:15 Temperature Source Oral 02/13/23 17:15 Pulse 140 H 02/13/23 17:15 Respiratory Rate 20 02/13/23 17:15 Blood Pressure 136/80 02/13/23 17:15 Blood Pressure Position Sitting 02/13/23 17:15 Pulse Oximetry 94 02/13/23 17:15 Oxygen Delivery Method Room Air 02/13/23 17:15 Oxygen Flow Rate 0 02/13/23 17:15 Pain Level 0 02/13/23 17:15
[2023-02-13 17:56] VITALS: BP 122/59; PULSE 144
[2023-02-13] MEDS: Metoprolol 5 MG/5 ML VIAL IVP (17:56)
[2023-02-13] MEDS: MAGNESIUM SULFATE 2 GM/50 ML BAG IVPB (17:56)
[2023-02-13 18:07] LABS: Abs Immature Grans 0.02 10^3/uL (0.0-0.06); Absolute Basophil Count 0.05 10^3/uL (0.0-0.2); Absolute Eosinophil Count 0.21 10^3/uL (0.0-0.7); Absolute Lymphocyte Count 1.65 10^3/uL (1.2-3.4); Absolute Monocyte Count 0.96 10^3/uL (0.1-0.8); Absolute Neutrophil Count 5.28 10^3/uL (1.2-6.7); Basophils % 0.6; Eosinophils % 2.6; HGB 15.2 g/dL (13.5-17.5); Immature Grans % 0.2; Lymphocytes % 20.2; MCH 28.6 pg (27.0-33.0); MCHC 34.5 % (32.0-36.0); MCV 83 fL (80-95); MPV 10.7 fL (8.0-11.0); Monocytes % 11.8; Neutrophils % 64.6; Platelet Count 184 10^3/uL (130-400); RBC 5.31 10^6/uL (4.36-5.78); RDW 14.6 % (11.8-14.1); RDW-SD 43.8 fL; WBC 8.17 10^3/uL (4.4-10.8)
[2023-02-13] MEDS: Normal Saline 500 ML 250 ML IV (18:08)
[2023-02-13] MEDS: Metoprolol CR 25 MG TABCR PO (18:10)
[2023-02-13 18:11] LABS: Anion Gap 9.6 mmol/L (3-11); BUN 23 mg/dL (7-18); CO2 29.4 mmol/L (21.0-32.0); CREATININE 0.8 mg/dL (0.70-1.30); Calcium 9.1 mg/dL (8.5-10.1); Chloride 104 mmol/L (98-107); Estimated GFR 101.32 (mL/min/1.73m2); Glucose 133 mg/dL (74-106); Magnesium 1.9 mg/dL (1.8-2.4); Potassium 3.7 mmol/L (3.5-5.1); Sodium 143 mmol/L (136-145)
--- NOTE | 2023-02-13 18:15 | RT.EKG_ITS ---
APPROVED REPORT Exam: Resting ECG Reason for Exam: afib Patient Location: E HR:68 bpm ECG Measurements Heart Rate 68 AXIS PA 193 P -23 QRSd 91 QRS 3 QT 404 T 29 QTc 432 Conclusion Sinus rhythm...normal P axis, V-rate 60- 99 Narrow complex normal sinus rhythm at a rate of 68. Left axis deviation no signs of LVH based on vol tage criteria. Intervals within normal limits. No ischemic pattern. No acute injury. Compared to prior dated earlier this evening normal sinus rhythm has replaced atrial fibrillation with RVR.
[2023-02-13 18:30] VITALS: BP 139/70; PULSE 70; RESP 20; O2SAT 95
--- NOTE | 2023-02-13 18:35 | NUR.NOTE ---
Nursing Note: PT needs follow up thursday or early next week with PCP for atrial fibrillation. Dorcas, ED
--- NOTE | 2023-02-14 00:48 | NUR.NOTE ---
RT requisition faxed to [phone] to set patient up with 48 hour holter monitor.Nursing Note:
== END 2023-02-13 18:42 | disposition home or self-care (01) ==
PROVIDERS: Emergency Provider Emergency Medicine; PCP Family Medicine
DX: I48.91 Unspecified atrial fibrillation (principal); I10 Essential (primary) hypertension; J45.909 Unspecified asthma, uncomplicated; Z79.51 Long term (current) use of inhaled steroids; Z79.82 Long term (current) use of aspirin
CPT/HCPCS: 36415; 80048; 93005; 96361; 96374; 99284; 83735; 85025; 93010

== ENCOUNTER 2023-02-19 11:21 | Outpatient (RCR) | payer MEDICAID, SELFPAY ==
--- NOTE | 2023-02-19 11:15 | HOLTER_ITS ---
APPROVED REPORT Conclusion This is a 48-hour Holter monitor reportedly ordered for atrial fibrillation Patient was in sinus rhythm throughout with an average heart rate of 71. Minimum was 53, maximum 94 There were very rare isolated atrial and ventricular ectopic beats There was no atrial fibrillation, no SVT, no high-grade AV block, no pauses greater than 3 seconds
== END 2023-02-20 23:59 | disposition home or self-care (01) ==
LOC: CARDOPNVT 11:21
PROVIDERS: PCP Family Medicine; Visit Provider Emergency Medicine
DX: I48.91 Unspecified atrial fibrillation (principal)
CPT/HCPCS: 93225

== ENCOUNTER 2023-02-24 07:00 | Outpatient (RCR) | payer MEDICAID, SELFPAY | END 2023-02-24 07:20 | LOC: CARDOPNVT 07:00 | PROVIDERS: PCP Family Medicine; Visit Provider Emergency Medicine | DX: I48.3 Typical atrial flutter (principal) | CPT/HCPCS: 93226 ==

== ENCOUNTER 2023-03-17 07:58 | Outpatient (CLI) | payer MEDICAID, SELFPAY ==
--- NOTE | 2023-03-17 07:45 | RT.EKG_ITS ---
APPROVED REPORT Exam: Resting ECG Reason for Exam: afib Patient Location: O HR:69 bpm ECG Measurements Heart Rate 69 AXIS AZ 181 P 14 QRSd 97 QRS 8 QT 416 T 28 QTc 446 Conclusion Sinus rhythm...normal P axis, V-rate 50- 99 Normal Electrocardiogram
== END 2023-03-17 07:59 | disposition home or self-care (01) ==
LOC: DI.CARD 07:59
PROVIDERS: PCP Family Medicine; Visit Provider Internal Medicine Cardiovascular Disease
DX: I48.0 Paroxysmal atrial fibrillation (principal)
CPT/HCPCS: 93010

== ENCOUNTER 2023-07-10 12:17 | Outpatient (REF) | payer MEDICAID, SELFPAY ==
[2023-07-10 16:21] LABS: Hemoglobin A1C 5.5 % (<5.7)
[2023-07-10 16:37] LABS: ALT 53 U/L (16-63); AST 31 U/L (15-37); Albumin 4.1 g/dL (3.4-5.0); Alkaline Phosphatase 62 U/L (46-116); Anion Gap 9.4 mmol/L (3-11); BUN 15 mg/dL (7-18); Bilirubin, Total 0.5 mg/dL (0.2-1.0); CO2 27.6 mmol/L (21.0-32.0); CREATININE 0.6 mg/dL (0.70-1.30); Calcium 9.1 mg/dL (8.5-10.1); Calculated LDL 48 mg/dL (<100); Chloride 106 mmol/L (98-107); Cholesterol 159 mg/dL (<200); Estimated GFR 110.51 (mL/min/1.73m2); Glucose 99 mg/dL (74-106); HDL Cholesterol 36 mg/dL (40-60); Potassium 3.9 mmol/L (3.5-5.1); Sodium 143 mmol/L (136-145); TSH (W/Ref FT4) 0.89 uIU/mL (0.36-3.74); Total Protein 7.6 g/dL (6.4-8.2); Triglyceride 379 mg/dL (<150)
== END 2023-07-10 12:18 | disposition home or self-care (01) ==
LOC: NCHCN 12:17
PROVIDERS: PCP Family Medicine; Visit Provider Family Medicine
DX: I48.0 Paroxysmal atrial fibrillation (principal); I27.20 Pulmonary hypertension, unspecified; K76.0 Fatty (change of) liver, not elsewhere classified; E88.81 Metabolic syndrome and other insulin resistance; R79.89 Other specified abnormal findings of blood chemistry
CPT/HCPCS: 80053; 80061; 83036; 84443

== ENCOUNTER → 2023-08-05 01:44 | Outpatient (CLI) | payer MEDICAID, SELFPAY ==
--- NOTE | 2023-08-05 | DI.CT_ITS ---
Exam(s) CT CHEST WO EXAM: CT CHEST WO CLINICAL HISTORY: MILD AORTIC DILATATION, I77.819. TECHNIQUE: Multi planar reconstructions were performed. CONTRAST MATERIAL: None COMPARISON: CT CT CHEST PE ABD PELVIS W from 11/16/2022 FINDINGS: CHEST: LUNGS: There has been significant improvement in the appearance of the lung stone. The previously d escribed multiple bilateral nodular infiltrates have resolved. There are presently no significant erika ng nodules, infiltrates, nor pleural effusions. No significant focal findings in trachea and mainste m bronchi. There is no bronchiectasis. MEDIASTINUM: There is no obvious hilar nor mediastinal adenopathy. Visualized thyroid unremarkable.No obvious axillary adenopathy CARDIAC: Heart size is normal. There is no pericardial effusion.Diameter of the ascending thoracic a yulissa is again noted be prominent, measuring 4.2 cm. The diameter of the mid aortic arch is 3.4 cm. Diameter of the proximal descending thoracic aorta is 3.1 cm. Diameter of the mid descending thoraci c aorta is 0.9. Diameter of the distal most thoracic aorta is 2.8 cm. Diameter of the partially vis ualized upper most abdomen at the level of the celiac artery is 2.5 cm. . VISUALIZED UPPER ABDOMEN:No adrenal masses. No splenomegaly. OSSEOUS: No significant osseous lesions.. IMPRESSION: 1. Compared to prior CT scan of 11/16/2022 there has been significant improvement in the lung stone. All of the previously described bilateral nodular infiltrates have resolved. Lungs are presently c lear and there also no pleural effusions. No intrathoracic adenopathy. 2. Thoracic aorta is again noted be slightly enlarged. Maximum diameter of the ascending thoracic ao rta is presently 4.2 cm. Other measurements as above. RADIATION DOSE DELIVERED: 797.53mGy.cm Total DLP DATA REPOSITORY: All CT scans at this facility are submitted to the National Radiology Data Registry (NRDR) Dose Index Registry (DIR) with the [employer] (ACR). RADIATION OPTIMIZATION: All CT scans at this facility use at least one of these dose optimization te chniques: automated exposure control; mA and/or kV adjustment per patient size (includes targeted exa ms where dose is matched to clinical indication); or iterative reconstruction.
--- NOTE | 2023-08-05 07:30 | DI.US_ITS ---
APPROVED REPORT EXAM: Comprehensive 2D, Doppler, and color-flow Echocardiogram Patient Location: Out-Patient [employer] Make Up Helper: Ilsa Cordova RDCS (AE) Indications: Mile aortic dilation Other Information Study Quality: Fair. Technically limited study due to body habitus. Conclusion Technically difficult but adequate study Normal left ventricular wall thickness and chamber size. Ejection fraction is 55%. Wall motion appe ars normal Normal right ventricular size and systolic function Both atria are normal in size There is no structural or hemodynamically significant valvular disease Ascending aorta measures 4.1 cm Wall motion Left Ventricle The left ventricle is normal size. The overall left ventricular systolic function appears normal. The re is normal left ventricular wall thickness. There is normal LV segmental wall motion. There is no v entricular septal defect visualized. LVEF is 55%. Right Ventricle Right ventricle is grossly normal in size. Right ventricular systolic function is grossly normal. Atria The left atrium size is normal. The right atrium size is normal. The interatrial septum is intact wit h no evidence for an atrial septal defect. Aortic Valve The aortic valve is normal in structure. There is no aortic valvular stenosis. No aortic regurgitatio n is present. Mitral Valve The mitral valve is normal in structure. No evidence of mitral valve stenosis. Trace mitral regurgita tion. Tricuspid Valve The tricuspid valve is normal in structure. There is no tricuspid valve stenosis. Trace tricuspid reg urgitation. Unable to assess PA pressure. Pulmonic Valve Pulmonic valve is not well visualized. There is no pulmonic valvular stenosis. There is no pulmonic v alvular regurgitation. Great Vessels The aortic root is normal in size. The ascending aorta is mildly dilated. Aortic arch is normal in ca liber. IVC is normal in size and collapses >50% with inspiration. Pericardium There is no pericardial effusion. 2D Dimensions IVSD d PLAX 1.02 cm M: 0.6-1.2 Ao Root d 3.22 cm M: 3.1 - 3.7 LVPW d PLAX 1.03 cm M: 0.6 - 1.2 Ao Asc Diam d 4.10 cm M: 2.6 - 3.4 LVID d PLAX 5.22 cm M: 4.2 - 5.8 LVDs 3.71 cm M: 2.5 - 4.0 LV EF Teichholz 55.2 % FS 28.88 % LV EDV (Teich) 130.8 mL LV ESV (Teich) 58.7 mL M-Mode TAPSE 3.05 cm (M/F) >1.7 Auto EF LV EDV A4C 155.4 mL LV EDV A2C 130.2 mL LV EDV BP 139.4 mL LV ESV A4C 68.7 mL LV ESV A2C 60.0 mL LV ESV BP 64.3 mL LVEF(%) A4C 55.8 % LVEF(%) A2C 53.9 % LVEF(%) BP 53.9 % LV SV A4C 86.7 ml LV SV A2C 70.2 ml LV SV BP 75.1 ml LV CO A4C 5.6 L/min LV CO A2C 4.5 L/min LV CO BP 5.0 L/min HR A4C 64.04 BPM HR A2C 64.40 BPM LV EDV Index (BP) LV Diastology MV E' medial 0.091 (>0.07 m/s) MV E Vmax 0.80 (0.4-1.3 m/s) MV E/E' MED 8.80 (<14) MV A Vmax 0.90 (0.4-1.3 m/s) MV E' lateral 0.109 (>0.1 m/s) E/A Ratio 0.9 MV E/E' LAT 7.32 (<14) MV E' Average 0.100 m/s MV E/E'(average) 7.99 Aortic Valve AoV Vmax 1.31 m/s LVOT Vmax 1.10 m/s AoV Peak Grad 6.9 mmHg LVOT Peak Grad 4.8 mmHg AoV Area (Vmax) 2.97 cm2 LVOT VTI 0.263 m AoV VTI 0.314 m LVOT Mean Grad 2.8 mmHg AoV Mean Rufus. 0.94 m/s LVOT SV 93.43 mL AoV Mean Grad 4.0 mmHg LVOT Diam s 2.10 cm AoV Area (VTI) 2.97 cm2 Velocity Ratio 0.84 Mitral Valve MV DT 233 (160-240 msec) MV Vmax TIPS 0.82 m/s MV Mean Grad 1.4 (<2mmHg) MV VTI 0.318 m Pulmonary Valve PV Vmax 0.90 (0.5-1.5 m/s) RVOT Vmax 0.66 m/s PV Peak Grad 3.3 mmHg RVOT Peak Gr. 1.8 mmHg PV Mean Rufus 0.60 m/s RVOT VTI 0.153 m PV Mean Grad 1.7 mmHg RVOT Mean Gr. 0.8 mmHg Tricuspid Valve TV S' 0.20 m/s
== END ==
PROVIDERS: PCP Family Medicine; Visit Provider Family Medicine
DX: I77.89 Other specified disorders of arteries and arterioles (principal)
CPT/HCPCS: 71250; 93306

== ENCOUNTER 2023-11-17 15:00 | Outpatient (REF) | payer BC, SELFPAY ==
[2023-11-17 16:09] LABS: Abs Immature Grans 0.03 10^3/uL (0.0-0.06); Absolute Basophil Count 0.07 10^3/uL (0.0-0.2); Absolute Eosinophil Count 0.27 10^3/uL (0.0-0.7); Absolute Lymphocyte Count 1.62 10^3/uL (1.2-3.4); Absolute Monocyte Count 0.71 10^3/uL (0.1-0.8); Absolute Neutrophil Count 4.37 10^3/uL (1.2-6.7); Eosinophils % 3.8; HCT 44.6 % (40.0-50.0); HGB 14.7 g/dL (13.5-17.5); Immature Grans % 0.4; Lymphocytes % 22.9; MCH 28.3 pg (27.0-33.0); MCV 86 fL (80-95); MPV 11.9 fL (8.0-11.0); Neutrophils % 61.9; Platelet Count 168 10^3/uL (130-400); RBC 5.19 10^6/uL (4.36-5.78); RDW 14.6 % (11.8-14.1); RDW-SD 44.7 fL; WBC 7.07 10^3/uL (4.4-10.8)
[2023-11-17 17:14] LABS: ALT 43 U/L (16-63); AST 22 U/L (15-37); Alkaline Phosphatase 62 U/L (46-116); Anion Gap 7.8 mmol/L (3-11); BUN 18 mg/dL (7-18); Bilirubin, Total 0.4 mg/dL (0.2-1.0); CO2 30.2 mmol/L (21.0-32.0); CREATININE 0.7 mg/dL (0.70-1.30); Chloride 102 mmol/L (98-107); Estimated GFR 105.49 (mL/min/1.73m2); Glucose 103 mg/dL (74-106); NT-proBNP 33 pg/mL (<300); Potassium 4.3 mmol/L (3.5-5.1); Sodium 140 mmol/L (136-145); Total Protein 7.4 g/dL (6.4-8.2)
[2023-11-17 17:22] LABS: Hemoglobin A1C 5.4 % (<5.7)
[2023-11-19 15:21] LABS: TSH (W/Ref FT4) 0.85 uIU/mL (0.36-3.74)
== END 2023-11-17 15:01 | disposition home or self-care (01) ==
LOC: NCHCN 15:00
PROVIDERS: PCP Family Medicine; Visit Provider Family Medicine
DX: Z00.00 Encounter for general adult medical examination without abnormal findings (principal); R73.03 Prediabetes; I50.9 Heart failure, unspecified
CPT/HCPCS: 80053; 83036; 83880; 84443; 85025

== ENCOUNTER 2024-02-18 19:18 | Outpatient (REF) | payer BC, SELFPAY ==
[2024-02-18 16:06] LABS: Anion Gap 11.4 mmol/L (3-11); BUN 17 mg/dL (7-18); CO2 26.6 mmol/L (21.0-32.0); CREATININE 0.8 mg/dL (0.70-1.30); Calcium 8.8 mg/dL (8.5-10.1); Chloride 104 mmol/L (98-107); Estimated GFR 100.69 (mL/min/1.73m2); Glucose 112 mg/dL (74-106); Potassium 4.3 mmol/L (3.5-5.1); Sodium 142 mmol/L (136-145)
== END 2024-02-18 19:19 | disposition home or self-care (01) ==
LOC: NCHCN 19:18
PROVIDERS: PCP Family Medicine; Visit Provider Family Medicine
DX: I10 Essential (primary) hypertension (principal)
CPT/HCPCS: 80048

== ENCOUNTER 2024-06-30 22:38 | Outpatient (REF) | payer BC, SELFPAY ==
[2024-06-30 15:22] LABS: Abs Immature Grans 0.02 10^3/uL (0.0-0.06); Absolute Basophil Count 0.05 10^3/uL (0.0-0.2); Absolute Eosinophil Count 0.26 10^3/uL (0.0-0.7); Absolute Lymphocyte Count 1.53 10^3/uL (1.2-3.4); Absolute Monocyte Count 0.76 10^3/uL (0.1-0.8); Absolute Neutrophil Count 4.58 10^3/uL (1.2-6.7); Basophils % 0.7 %; Eosinophils % 3.6 %; HCT 45.1 % (40.0-50.0); Immature Grans % 0.3 %; Lymphocytes % 21.3 %; MCH 29.1 pg (27.0-33.0); MCHC 33.3 % (32.0-36.0); MCV 87 fL (80-95); MPV 11.9 fL (8.0-11.0); Monocytes % 10.6 %; Neutrophils % 63.5 %; Platelet Count 143 10^3/uL (130-400); RBC 5.16 10^6/uL (4.36-5.78); RDW 14.4 % (11.8-14.1); RDW-SD 45.9 fL
[2024-06-30 15:55] LABS: ALT 57 U/L (16-63); AST 34 U/L (15-37); Albumin 3.9 g/dL (3.4-5.0); Alkaline Phosphatase 75 U/L (46-116); Anion Gap 8.5 mmol/L (3-11); BUN 16 mg/dL (7-18); Bilirubin, Total 0.36 mg/dL (0.2-1.0); CO2 29.5 mmol/L (21.0-32.0); CREATININE 0.7 mg/dL (0.70-1.30); Chloride 106 mmol/L (98-107); Estimated GFR 104.83 (mL/min/1.73m2); Glucose 118 mg/dL (74-106); Potassium 4.2 mmol/L (3.5-5.1); Sodium 144 mmol/L (136-145); Total Protein 7.1 g/dL (6.4-8.2); Vitamin D 25 Total 16.5 ng/mL (30-100)
== END 2024-06-30 22:39 | disposition home or self-care (01) ==
LOC: NCHCN 22:38
PROVIDERS: PCP Family Medicine; Visit Provider Family Medicine
DX: Z00.00 Encounter for general adult medical examination without abnormal findings (principal); E55.9 Vitamin D deficiency, unspecified; R79.89 Other specified abnormal findings of blood chemistry
CPT/HCPCS: 80053; 82306; 85025

== ENCOUNTER 2024-10-08 15:40 | Emergency (ER) | payer BC, SELFPAY ==
--- NOTE | 2024-10-08 15:45 | DI.RAD_ITS ---
Exam(s) XR CHEST 2V PA LATERAL EXAM: XR CHEST 2V PA LATERAL CLINICAL HISTORY: Cough, shortness of breath, orthopnea TECHNIQUE: 2D digital imaging was performed. Two views. COMPARISON: CT CT CHEST WO from 08/05/2023 FINDINGS: The exam is limited by under penetration. There is motion on the lateral view. HEART: Normal size. Aorta: Not dilated. PULMONARY VASCULATURE: Normal. MEDIASTINUM: Unremarkable. LUNGS: Grossly clear. PLEURAL SPACE: No pleural effusion or pneumothorax. BONE:Flowing osteophytes in the thoracic spine. SOFT TISSUES: Unremarkable. IMPRESSION: No acute abnormality. DATA REPOSITORY: RADIATION DOSE DELIVERED:
[2024-10-08 15:48] VITALS: BP 186/82; PULSE 96; RESP 18; TEMP 36.8; O2SAT 95
[2024-10-08 15:51] VITALS: BP 186/82; PULSE 96; RESP 18; TEMP 36.8; O2SAT 95
--- NOTE | 2024-10-08 16:01 | ED.GENADUL_ITS ---
Discharge Plan Disposition Patient Disposition: Home Condition: Stable Discharge Details Clinical Impression: Acute sore throat, Acute respiratory infection, Dilated aortic root, Pulmonary hypertension, Asthma, Paroxysmal atrial fibrillation, Obstructive sleep apnea Primary Care Provider: Janine Hilliard V ED Provider: Stephanie Jonas Home Meds and New Rx's Prescriptions: No Action metoprolol tartrate 25 mg tablet 25 mg PO DAILY PRN Patient Comments: for afib as needed tamsulosin 0.4 mg capsule See Rx Instructions .ROUTE .COMPLEX Qty: 90 4RF Dose Instruction: TAKE 1 CAPSULE BY MOUTH DAILY Rx Instructions: TAKE 1 CAPSULE BY MOUTH DAILY potassium citrate 10 MEQ tablet extended release 40 meq PO DAILY epinephrine [EpiPen] 0.3 mg/0.3 mL auto-injector 0.3 ml subcut ONCE Rx Instructions: as a single dose; may repeat once albuterol sulfate [ProAir HFA] 90 mcg/actuation HFA aerosol inhaler 2 inh inhalation Q6H PRN atorvastatin 40 mg tablet 40 mg PO DAILY lisinopril 10 mg tablet 20 mg PO DAILY budesonide-formoterol [Symbicort] 160-4.5 mcg/actuation HFA aerosol inhaler 2 puff Inhalation BID PRN cyclobenzaprine 10 MG tablet 10 mg PO TID PRN PRN albuterol sulfate 2.5 mg /3 mL (0.083 %) solution for nebulization 3 ml inhalation PRN PRN Patient Comments: Inhale 1 ampul using nebulizer every four to six hours as needed metoprolol succinate 25 mg tablet extended release 24 hr 25 mg PO DAILY Patient Comments: TAKE 1 TABLET BY MOUTH AT BEDTIME bumetanide 1 mg tablet 1 mg PO DAILY Patient Comments: TAKE 1 TABLET BY MOUTH EVERY DAY Wegovy 1.7 mg/0.75 mL pen injector 1.7 mg SUBCUT Q7D Patient Comments: INJECT 1.7 MILLIGRAMS UNDER THE SKIN ONCE A WEEK Discharge Instructions Instructions: Sore Throat, Adult ED Additional Instructions: You were seen in the emergency department today for evaluation of a sore throat and shortness of breath, likely in the setting of a viral infection. In our department a full physical examination performed and had reassuring laboratory studies. It is safe you to go home and continue conservative management, with [id number]-[id number] medications, throat lozenges, and good hydration and nutrition. If you have any concerns please return to the emergency department for reevaluation, and keep your primary care appointment that is scheduled for this week. Thank you for allowing us to be part of your care. Discharge Data Discharge Date/Time-TO BE ENTERED AT DEPARTURE: 10/08/24 18:09 HPI General Date/Time Provider Initiated Documentation: 10/08/24 15:44 . Limitations to Documentation: no limitations . Information obtained by: patient, family and old records reviewed . HPI Narrative: HPI: This is a 59-year-old male patient with a past medical history significant for atrial fibrillation, pulmonary hypertension, SOHEILA, and asthma who is presenting for evaluation of 2 weeks of upper respiratory symptoms and shortness of breath. The patient reports that his family got sick with a respiratory disease a few weeks ago, with stuffy runny nose and sinus congestion, as well as sore throat. He feels that his fever, which was low-grade in subjective, has improved significantly. He feels like the congestion is moved down into his chest, does have occasional cough productive of chunky sputum, which was blood- streaked for the last few days. He reports that he has been eating more salty foods than typical, and has noted an increase in his peripheral edema. He has orthopnea and has had to sleep with his head of bed elevated. States that he does not wear oxygen at home but feels like his work of breathing is increased from his baseline. He is not experiencing chest pain, has been eating and drinking normally and maintaining his hydration. Exam: Gen: Awake and alert, in no apparent distress HEENT: Non-icteric sclera Neck: Supple, posterior pharynx without erythema or obvious exudate. Left greater than right tender lymphadenopathy Lungs: No apparent respiratory distress, normal respiratory effort. Lung sounds clear and equal bilaterally without wheezes, rhonchi, rales CV: Appears well perfused, heart with regular rate and rhythm, no murmurs auscultated Abdomen: Non-distended MSK: Moves 4 extremities without apparent limitation in ROM. Trace peripheral edema, symmetrical, no unilateral calf swelling or tenderness Skin: Visualized skin without rashes, cyanosis. Neuro: Normal Gait, no obvious focal deficits or facial asymmetry. Speaks in full, clear sentences. Psych: Appropriate for situation. MDM: This is a 59-year-old male patient presenting for evaluation of 2 weeks of upper respiratory infection symptoms and shortness of breath with orthopnea. My differential includes but is not limited to viral URI, pneumonia, bronchitis, certainly considered reactive airway disease exacerbation, heart failure or fluid overload, as well as pneumothorax or pleural effusion. The patient is reassuringly not experiencing any chest pain to suggest ACS, pleurisy, pericarditis or myocarditis. The patient is hemodynamically stable and afebrile at this time, and is oxygenating appropriately on room air. Will obtain laboratory studies to include Fluvid, CBC, CMP, troponin, BNP, and will proceed with x-ray imaging to better characterize any abnormalities which might account for the patient's symptoms. ED Course: I reviewed the patient's laboratory studies, which shows no leukocytosis, anemia or thrombocytopenia. Chemistry panel without significant electrolyte derangements, evidence of kidney dysfunction or liver disease. COVID and influenza testing was negative, and the BNP and troponins were low. There was no delta change in troponin to suggest ischemia. I independently interpreted the patient's x-ray imaging, which does show some pulmonary vascular congestion but no evidence of acute pulmonary edema, pleural effusion, or pneumonia. I did share this finding with the patient, who is already under treatment for pulmonary hypertension and does not warrant any more aggressive intervention at this time. I recommended conservative management of his sore throat and counseled him on fawi-ktt-[id number] medications. He is likely experiencing a viral syndrome given his history and reassuring workup thus far. At this time, the patient has had a full medical evaluation and is safe for discharge to home. They are hemodynamically stable, ambulatory, and tolerating PO. They are understanding of the follow-up plan and return precautions. They left our facility without incident. Stephanie Jonas MD Related Data Home Medications ?Medication ?Instructions ?Recorded ?Confirmed cyclobenzaprine 10 mg tablet 10 mg PO TID PRN PRN 08/22/14 10/08/24 potassium citrate 10 mEq (1,080 40 meq PO DAILY 10/19/17 10/08/24 mg) tablet,extended release lisinopril 10 mg tablet 20 mg PO DAILY 09/09/22 10/08/24 albuterol sulfate 2.5 mg/3 mL 3 ml inhalation PRN PRN 11/16/22 10/08/24 (0.083 %) solution for nebulization metoprolol succinate 25 mg 25 mg PO DAILY 11/16/22 10/08/24 tablet,extended release 24 hr albuterol sulfate 90 mcg/actuation 2 inh inhalation Q6H PRN 02/25/23 10/08/24 aerosol inhaler (ProAir HFA) epinephrine 0.3 mg/0.3 mL 0.3 ml subcut ONCE 02/25/23 10/08/24 injection, auto-injector (EpiPen) atorvastatin 40 mg tablet 40 mg PO DAILY 03/04/23 10/08/24 budesonide-formoterol HFA 160 2 puff inhalation BID PRN 11/13/23 10/08/24 mcg-4.5 mcg/actuation aerosol inhaler (Symbicort) metoprolol tartrate 25 mg tablet 25 mg PO DAILY PRN 11/13/23 10/08/24 tamsulosin 0.4 mg capsule See Rx Instructions .Route 11/13/23 10/08/24 .COMPLEX #90 caps bumetanide 1 mg tablet 1 mg PO DAILY 10/08/24 10/08/24 semaglutide (weight loss) 1.7 1.7 mg subcut Q7D 10/08/24 10/08/24 mg/0.75 mL subcutaneous pen injector (Wegovy) Previous Rx's ?Medication ?Instructions ?Recorded tamsulosin 0.4 mg capsule See Rx Instructions .Route 11/13/23 .COMPLEX #90 caps Allergies Allergy/AdvReac Type Severity Reaction Status Date / Time hydromorphone Allergy Unknown itching Verified 10/08/24 15:47 hydrocodone (Hydrocodone) Allergy ITCHY Verified 10/08/24 15:47 bee stings Allergy Severe Anaphylaxis Uncoded 10/08/24 15:47 General Stated Complaint: RespSymp TRACIE: 3 Course Vital Signs Vital signs: Vital Signs Temperature 36.8 C 10/08/24 15:48 Pulse 96 H 10/08/24 15:48 Respiratory Rate 18 10/08/24 15:48 Blood Pressure 186/82 H 10/08/24 15:48 Pulse Oximetry 95 10/08/24 15:48 Temperature 36.8 C 10/08/24 15:51 Pulse 96 H 10/08/24 15:51 Respiratory Rate 18 10/08/24 15:51 Respiratory Effort Short of Breath 10/08/24 15:50 Blood Pressure 186/82 H 10/08/24 15:51 Pulse Oximetry 95 10/08/24 15:51 Pain Level 2 10/08/24 15:51 Medical Decision Making Quality:SDOH Health Related Social Needs: No Data to Display PFSH All Active Problems (Updated 10/08/24 @ 17:58 by Stephanie Jonas MD) Acute respiratory infection (Acute) Acute sore throat (Acute) Recurrent umbilical hernia (Acute) Paroxysmal atrial fibrillation (Acute) Pulmonary hypertension (Acute) Dilated aortic root (Acute) Mild ascending aorta dilatation (Acute) Community acquired pneumonia (Acute) Status post cataract extraction and insertion of intraocular lens of right eye (Chronic 02/07/19) High myopia, right eye (Chronic) Epiretinal membrane (ERM) of right eye (Chronic) Status post cataract extraction and insertion of intraocular lens of left eye (Chronic 01/24/19) High myopia, left eye (Chronic) Amblyopia of right eye (Chronic) Epiretinal membrane (ERM) of left eye (Chronic) Nuclear sclerotic cataract of left eye (Acute) Chronic prostatitis/chronic pelvic pain syndrome (Acute 10/19/17) Hemothorax on right (Acute 09/11/14) Osteoarthritis (Chronic) Asthma (Chronic) Obstructive sleep apnea (Chronic) Medical History Aortic dilatation Asthma Cortical cataract of left eye Cortical cataract of right eye COVID-19 virus infection DJD (degenerative joint disease) Hemothorax on right Hypertension Lung nodule Nuclear sclerotic cataract of right eye Obesity Rhabdomyolysis Rib fracture Surgical History H/O chest tube placement H/O umbilical hernia repair History of colonoscopy Family History Mother Heart disease Maternal Grandmother Hypertension Maternal Aunt No problems noted. Maternal Grandfather Hypertension Uncle Colon cancer Uncle Colon cancer Father Cancer unknown type Paternal Grandfather Cancer unknown type Social History Smoking/Tobacco Use Status: Never Smoking risk assessment performed?: Yes Alcohol Intake: never Drug use: Never Substance use type: does not use Household members: spouse Current gender identity: male What is your relationship status?: Panel score (0-1 are the most socially isolated patients): 1 Do you feel safe at home: Yes Do you feel safe in your relationship?: Yes
[2024-10-08 16:18] LABS: Abs Immature Grans 0.12 10^3/uL (0.0-0.06); Absolute Basophil Count 0.06 10^3/uL (0.0-0.2); Absolute Eosinophil Count 0.25 10^3/uL (0.0-0.7); Absolute Lymphocyte Count 1.37 10^3/uL (1.2-3.4); Absolute Monocyte Count 0.77 10^3/uL (0.1-0.8); Absolute Neutrophil Count 7.15 10^3/uL (1.2-6.7); Basophils % 0.6 %; Eosinophils % 2.6 %; HCT 41.8 % (40.0-50.0); Immature Grans % 1.2 %; Lymphocytes % 14.1 %; MCH 28.3 pg (27.0-33.0); MCHC 33.5 % (32.0-36.0); MCV 85 fL (80-95); MPV 9.9 fL (8.0-11.0); Monocytes % 7.9 %; Neutrophils % 73.6 %; Platelet Count 184 10^3/uL (130-400); RBC 4.94 10^6/uL (4.36-5.78); RDW 13.7 % (11.8-14.1); RDW-SD 42.2 fL; WBC 9.72 10^3/uL (4.4-10.8)
[2024-10-08 16:42] LABS: ALT 47 U/L (16-63); AST 27 U/L (15-37); Albumin 3.5 g/dL (3.4-5.0); Alkaline Phosphatase 74 U/L (46-116); BUN 19 mg/dL (7-18); Bilirubin, Total 0.31 mg/dL (0.2-1.0); CREATININE 0.8 mg/dL (0.70-1.30); Calcium 8.9 mg/dL (8.5-10.1); Chloride 107 mmol/L (98-107); Estimated GFR 100.69 (mL/min/1.73m2); Glucose 109 mg/dL (74-106); Magnesium 1.9 mg/dL (1.8-2.4); NT-proBNP 55 pg/mL (<300); Potassium 3.9 mmol/L (3.5-5.1); Sodium 143 mmol/L (136-145); Total Protein 7.8 g/dL (6.4-8.2); Troponin I 11 ng/L (<or=76)
[2024-10-08 16:56] LABS: COVID-19 PCR Negative (Negative); Influenza A PCR Negative (Negative); Influenza B PCR Negative (Negative); RSV PCR Negative (Negative)
[2024-10-08 17:00] VITALS: BP 161/93; PULSE 80; RESP 18; O2SAT 95
[2024-10-08 17:13] LABS: Source Nasopharynx
[2024-10-08 17:33] LABS: Troponin I 8 ng/L (<or=76)
--- NOTE | 2024-10-08 17:37 | DI.VRAD_ITS ---
PROCEDURE INFORMATION: Exam: XR Chest Exam date and time: 10/08/2024 4:18 PM Age: 59 years old Clinical indication: Cough and shortness of breath and other: Orthopnea; Patient HX: Cough, shortness of breath, orthopnea TECHNIQUE: Imaging protocol: Radiologic exam of the chest. Views: 2 views. COMPARISON: CT CHEST WO 05/08/2023 07:42 FINDINGS: Lungs: Prominent central pulmonary vasculature. Pleural spaces: Unremarkable. No pleural effusion. No pneumothorax. Heart/Mediastinum: Cardiomegaly. Bones/joints: Multilevel degenerative changes of the spine. IMPRESSION: Cardiomegaly. Central pulmonary vascular congestion. Dictated and Authenticated by: Heidi Gilmore MD. Ordering:JENNIFER Cotter MD
[2024-10-08 18:08] VITALS: BP 187/90; PULSE 79; RESP 18; O2SAT 95
== END 2024-10-08 18:09 | disposition home or self-care (01) ==
PROVIDERS: Emergency Provider Emergency Medicine; PCP Family Medicine
DX: J02.9 Acute pharyngitis, unspecified (principal); J06.9 Acute upper respiratory infection, unspecified; I77.810 Thoracic aortic ectasia; J45.909 Unspecified asthma, uncomplicated; I48.0 Paroxysmal atrial fibrillation; G47.33 Obstructive sleep apnea (adult) (pediatric); I10 Essential (primary) hypertension; Z79.899 Other long term (current) drug therapy
CPT/HCPCS: 80053; 87637; 99284; 71046; 83735; 83880; 84484; 85025; 99283

== ENCOUNTER 2025-03-16 16:09 | Outpatient (REF) | payer BC, SELFPAY ==
[2025-03-16 16:42] LABS: Hemoglobin A1C 5.6 % (<5.7)
[2025-03-16 16:57] LABS: ALT 49 U/L (16-63); AST 29 U/L (15-37); Albumin 4.1 g/dL (3.4-5.0); Alkaline Phosphatase 79 U/L (46-116); Anion Gap 6.7 mmol/L (3-11); BUN 20 mg/dL (7-18); Bilirubin, Total 0.5 mg/dL (0.2-1.0); CO2 30.3 mmol/L (21.0-32.0); CREATININE 0.7 mg/dL (0.70-1.30); Calcium 9.2 mg/dL (8.5-10.1); Chloride 106 mmol/L (98-107); Estimated GFR 104.18 (mL/min/1.73m2); Glucose 108 mg/dL (74-106); Potassium 3.9 mmol/L (3.5-5.1); Sodium 143 mmol/L (136-145); Total Protein 7.5 g/dL (6.4-8.2); Vitamin D 25 Total 20 ng/mL (30-100)
[2025-03-17 18:19] LABS: PSA, Diagnostic 0.8 ng/mL (<=4.5)
== END 2025-03-16 16:10 | disposition home or self-care (01) ==
LOC: NCHCN 16:09
PROVIDERS: PCP Family Medicine; Visit Provider Family Medicine
DX: R73.03 Prediabetes (principal); E55.9 Vitamin D deficiency, unspecified; N41.1 Chronic prostatitis; I10 Essential (primary) hypertension
CPT/HCPCS: 80053; 82306; 83036; 84153

== ENCOUNTER 2025-03-22 00:48 | Outpatient (CLI) | payer BC, SELFPAY ==
--- NOTE | 2025-03-22 | DI.RAD_ITS ---
Exam(s) XR SACRUM COCCYX EXAM: XR SACRUM COCCYX CLINICAL HISTORY: Coccyx pain; Sacrococcygeal disorders M53.3. TECHNIQUE: 2D digital imaging was performed. COMPARISON: CR UGI WITH SMALL BOWEL SERIES(P) from 08/30/2010 CR LUMBAR SPINE COMPLETE from 08/19/[address] CHEST PE ABD PELVIS W from 11/16/2022 FINDINGS: BONES: No acute fracture is present. No bony destructive lesion is seen. JOINTS: No dislocation present. There are degenerative changes seen in the lumbosacral spine with dis c space narrowing and osteophytes present. The sacroiliac joints are well maintained. No ankylosis or erosions are seen. SOFT TISSUE: Normal. IMPRESSION: No acute abnormality. DATA REPOSITORY: RADIATION DOSE DELIVERED:
== END 2025-03-22 01:08 ==
LOC: DI 00:49
PROVIDERS: PCP Family Medicine; Visit Provider Family Medicine
DX: M53.3 Sacrococcygeal disorders, not elsewhere classified (principal)
CPT/HCPCS: 72220

== ENCOUNTER 2025-06-01 02:14 | Outpatient (CLI) | payer BC, SELFPAY ==
[2025-06-01] MEDS: Methacholine 100 MG VIAL IH (14:52)
[2025-06-01] MEDS: Inhaler, Assist Device 1 EACH MC (14:52)
[2025-06-01] MEDS: Albuterol HFA 18 GM 200 PUFF INH IH (14:53)
--- NOTE | 2025-06-19 09:29 | W.PFT ---
Date of service: 06/01/25 Time of Service: 12:56 Pulmonary Function Test Result Indications: Dyspnea Impression 1. Good patient effort was noted. ATS standards for reproducibility were met. 2. Normal spirometry. 3. At 2 mg/mL of methacholine, there was a 32% fall in FEV1 Conclusion: - positive methacholine challenge test
== END 2025-06-01 02:15 | disposition home or self-care (01) ==
LOC: RT 02:14
PROVIDERS: PCP Family Medicine; Referring Provider Physician Assistant Surgical; Visit Provider Internal Medicine Pulmonary Disease
DX: R06.00 Dyspnea, unspecified (principal)
CPT/HCPCS: 94070; 94726; 94729; 95070; J7674

== ENCOUNTER 2025-06-15 01:22 | Outpatient (CLI) | payer BC, SELFPAY ==
--- NOTE | 2025-06-15 12:30 | DI.US_ITS ---
APPROVED REPORT EXAM: Comprehensive 2D, Doppler, and color-flow Echocardiogram Patient Location: Out-Patient Exercise Manager: Ilsa Cordova RDCS (AE) Indications: Aorta Aneurysm Other Information Study Quality: Fair. Technically limited study due to body habitus. Conclusion Technically difficult and suboptimal study Normal left ventricular wall thickness chamber size and systolic function Normal right ventricle and right atrial size Mildly dilated left atrium Within the limits of the study no significant valvular disease is identified Ascending aorta measures 4.25 cm Wall motion Left Ventricle The left ventricle is normal size. The overall left ventricular systolic function appears normal. There is normal left ventricular wall thickness. Regional wall motion is not well visualized but grossly normal. There is no ventricular septal defect visualized. LVEF is 57%. Right Ventricle Right ventricle is grossly normal in size. Right ventricular systolic function is grossly normal. Atria Left atrium is mildly dilated. The right atrium size is normal. The interatrial septum is intact with no evidence for an atrial septal defect. Aortic Valve The aortic valve is normal in structure. Number of aortic valve leaflets could not be assessed. There is no aortic valvular stenosis. Trace aortic regurgitation. Mitral Valve The mitral valve is normal in structure. No evidence of mitral valve stenosis. Trace mitral regurgitation. Tricuspid Valve The tricuspid valve is normal in structure. There is no tricuspid valve stenosis. Trace tricuspid regurgitation. The RVSP is 36.4_ mmHg. Pulmonic Valve Pulmonic valve is not well visualized. Great Vessels The aortic root is normal in size. The ascending aorta is moderate to Aortic arch is normal in caliber. severely dilated. IVC is normal in size and collapses >50% with inspiration. Pericardium There is no pericardial effusion. 2D Dimensions IVSD d PLAX 1.12 cm M: 0.6-1.2 Ao Root d 3.72 cm M: 3.1 - 3.7 LVPW d PLAX 1.13 cm M: 0.6 - 1.2 Ao Asc Diam d 4.25 cm M: 2.6 - 3.4 LVID d PLAX 5.15 cm M: 4.2 - 5.8 LVDs 3.60 cm M: 2.5 - 4.0 LV EF Teichholz 57.0 % FS 30.08 % LV EDV (Teich) 126.8 mL LV ESV (Teich) 54.5 mL M-Mode TAPSE 2.68 cm (M/F) >1.7 LA Volume LA Length A4C 5.7 cm LA Length A2C 5.7 cm LA Area A4C s 22.36 cm2 LA Area A2C s 24.19 cm2 LA Vol A4C A-L 74.58 mL LA Vol A2C A-L 87.13 mL LA Vol Biplane A-L 80.7 mL LA Vol/BSA A4C A-L LA Vol/BSA A2C A-L LA Vol/BSA BP A-L 36.3 mL/m2 LA Vol A4C MOD 69.6 mL LA Vol A2C MOD 81.7 mL LA Vol BP MOD 75.3 mL RA Volume RA Area A4C 18.4 cm2 RA ESV A4C (A-L) 52.3mL RA Vol/BSA A4C A-L RA Length A4C 5.5 cm RA ESV A4C (MOD) 48.9mL LV Diastology MV E' medial 0.081 (>0.07 m/s) MV E Vmax 1.00 (0.4-1.3 m/s) MV E/E' MED 12.34 (<14) MV A Vmax 0.95 (0.4-1.3 m/s) MV E' lateral 0.119 (>0.1 m/s) E/A Ratio 1.1 MV E/E' LAT 8.42 (<14) MV E' Average 0.100 m/s MV E/E'(average) 10.01 Aortic Valve AoV Vmax 1.55 m/s LVOT Vmax 1.17 m/s AoV Peak Grad 9.7 mmHg LVOT Peak Grad 5.4 mmHg AoV Area (Vmax) 2.61 cm2 LVOT VTI 0.282 m AoV VTI 0.379 m LVOT Mean Grad 3.4 mmHg AoV Mean Rufus. 1.12 m/s LVOT SV 98.13 mL AoV Mean Grad 5.6 mmHg LVOT Diam s 2.10 cm AoV Area (VTI) 2.59 cm2 AV Regurg Peak Gr. 9.66 mmHg Velocity Ratio 0.75 Mitral Valve MV DT 232 (160-240 msec) MV Vmax TIPS 1.05 m/s MV Mean Grad 2.0 (<2mmHg) MV VTI 0.340 m Pulmonary Valve RVOT Vmax 0.86 m/s RVOT Peak Gr. 3.0 mmHg RVOT VTI 0.151 m RVOT Mean Gr. 1.7 mmHg Tricuspid Valve RA Pressure 3.00 mmHg TR Vmax 2.89 m/s TV S' 0.16 m/s TR Peak Grad 33.3 mmHg RVSP (TR) 36.4 mmHg
== END 2025-06-15 01:42 ==
LOC: DI 01:22
PROVIDERS: PCP Family Medicine; Visit Provider Internal Medicine Cardiovascular Disease
DX: I71.21 Aneurysm of the ascending aorta, without rupture (principal)
CPT/HCPCS: 93306